=== PATIENT | female | born 1960 | race Caucasian/White ===

== ENCOUNTER → 2022-06-15 10:30 | Outpatient (BNVA) | payer MEDICARE, SELFPAY | PROVIDERS: PCP Family Medicine; Visit Provider Nurse Practitioner Family | DX: G43.009 Migraine without aura, not intractable, without status migrainosus (principal); R25.1 Tremor, unspecified; G24.01 Drug induced subacute dyskinesia; Z79.899 Other long term (current) drug therapy | CPT/HCPCS: 99202 ==

== ENCOUNTER → 2022-08-05 13:02 | Outpatient (BNVA) | payer MEDICARE, SELFPAY | PROVIDERS: PCP Family Medicine; Visit Provider Nurse Practitioner Family | DX: G43.009 Migraine without aura, not intractable, without status migrainosus (principal) | CPT/HCPCS: 99211 ==

== ENCOUNTER → 2022-12-13 10:43 | Outpatient (BNVA) | payer MEDICARE, SELFPAY | PROVIDERS: PCP Family Medicine; Visit Provider Nurse Practitioner Family | DX: G43.009 Migraine without aura, not intractable, without status migrainosus (principal); G24.01 Drug induced subacute dyskinesia; R25.1 Tremor, unspecified | CPT/HCPCS: 99212 ==

== ENCOUNTER → 2023-01-24 14:00 | Outpatient (BNVA) | payer MEDICARE, SELFPAY | PROVIDERS: PCP Family Medicine; Visit Provider Internal Medicine | DX: S34.4XXA Injury of lumbosacral plexus, initial encounter (principal); G54.9 Nerve root and plexus disorder, unspecified | CPT/HCPCS: 99202 ==

== ENCOUNTER → 2023-02-23 14:00 | Outpatient (BNVA) | payer MEDICARE, SELFPAY | PROVIDERS: PCP Family Medicine; Visit Provider Nurse Practitioner Family | DX: G20 Parkinson's disease (principal); R20.2 Paresthesia of skin; M54.50 Low back pain, unspecified; R26.9 Unspecified abnormalities of gait and mobility; G24.01 Drug induced subacute dyskinesia; G43.009 Migraine without aura, not intractable, without status migrainosus | CPT/HCPCS: 99212 ==

== ENCOUNTER 2023-04-06 09:03 | Outpatient (REF) | payer MEDICARE, SELFPAY ==
--- NOTE | 2023-04-06 09:07 | EMG_ITS ---
Please see scanned EMG / Nerve Conduction Report. MTDD
== END 2023-04-06 09:04 | disposition home or self-care (01) ==
LOC: HO.NEURO 09:03
PROVIDERS: PCP Family Medicine; Visit Provider Nurse Practitioner Family
DX: R20.2 Paresthesia of skin (principal); M54.50 Low back pain, unspecified; R26.9 Unspecified abnormalities of gait and mobility
CPT/HCPCS: 95860; 95886; 95907; 95909

== ENCOUNTER 2023-05-11 10:16 | Day surgery (SDC) | payer MEDICARE, SELFPAY ==
--- NOTE | ~2023-05-11 | FL_ITS ---
EXAMINATION: XR FLUOROSCOPY WITH IMAGES CLINICAL INFORMATION: SPRINT. COMPARISON: None available. TECHNIQUE: Fluoroscopy Supervised By: Dr. Wenceslao Tinoco. Fluoroscopy Time: 0.7 minutes. Cumulative Dose: 14.1 mGy. DAP: 0.125 Gy-cm2. Images: 4. FINDINGS: Images demonstrate wire or probe projecting over the lumbar spine. FL/FL guidance in OR IMPRESSION: Fluoroscopy guidance for pain management procedure.
[2023-05-11 10:31] VITALS: BP 101/52; PULSE 49; RESP 18; TEMP 36.4; O2SAT 100
--- NOTE | 2023-05-11 11:15 | MHC.SHP ---
Pre-Procedural Eval Section A Date of Service: 05/11/23 The patient is an INPATIENT: No Changes since office visit: Yes Patient answered all questions The History & Physical has been completed within 30 days and I have reviewed it.: Yes Section B Chief Complaint: Injury of lumbosacral plexus, initial encounter Relevant Family History (Specify if Yes): No Relevant Social History: None Present Medications: None Medical History: No relevant PMH History of Previous Operations: No relevant previous surgery Allergies: Allergies Allergy/AdvReac Type Severity Reaction Status Date / Time dihydroergotamine Allergy Severe Vomiting Verified 02/23/23 14:07 erythromycin base AdvReac Intermediate n/v Verified 02/23/23 14:07 NSAIDS (Non-Steroidal AdvReac Unknown Verified 02/23/23 14:07 Anti-Inflamma reglan AdvReac Unknown Uncoded 02/23/23 14:07 Review of Systems Sugical H&P ROS: Negative: Constitution, Cardiovascular and Respiratory Exam Surgical H&P Exam: Normal: HEENT, Normal: Heart and Normal: Lungs Plan Diagnosis/Plan: Unchanged I have reviewed the history and physical and performed a pertinent physical examination on my patient. No changes have occurred unless specified. Time Spent With Patient Time: Total time managing care of this patient today ____ minutes.
[2023-05-11 12:23] VITALS: BP 147/67; PULSE 47; RESP 18; TEMP 36.8; O2SAT 100
--- NOTE | 2023-05-11 12:27 | P.BOP_ITS ---
Brief Operative Note Date of Service: 05/11/23 Pre-op diagnosis: Lumbar nerve root disorder, traumatic lumbosacral plexopathy Post-op diagnosis: same Procedure: Temporary right L1 nerve root stimulator placement Implants: Sprint temporary PNS system Surgeon: Wenceslao Tinoco MD Anesthesia: local Was an Learning And Development Consultant used for this Procedure?: No Estimated blood loss (mL): 2 Pathology: none sent Condition: stable Disposition: same day
--- NOTE | 2023-05-11 12:28 | P.OP_ITS ---
Operative Note Operative Note Date of Service: 05/11/23 Narrative: Lumbar Nerve Root Temporary Nerve Stimulator Placement, Right L1 ? After the risks, benefits and alternatives were discussed with the patient and informed consent was obtained, patient was placed in the prone position and padded to foster comfort. The skin overlying the lumbosacral spine was prepped and draped in sterile fashion. Fluoroscopy was used to identify the L1 vertebral body. The skin around the planned entry point and the subcutaneous tissues were injected with lidocaine 0.75%. An introducer needle and stimulating probe were assembled, inserted and advanced in an ipsilateral oblique fashion towards the safe triangle within the upper pole of the L1 neural foramen, taking care to maintain the proper depth of insertion as the introducer was advanced under fluoroscopic guidance. The introducer needle was delivered to a location in proximity to the nerve root. Multiple stimulation parameters were used to deliver stimulation to the target nerve root in concert with stimulating at multiple positions around the nerve. Nerve target acquisition was confirmed noting generation of paresthesias in the right back and flank. Various electrical parameter combinations were tested. The stimulating probe was removed from the introducer and a percutaneous lead was guided through the needle and delivered to a location in similar proximity to the nerve. Final location was verified with electrical stimulation and documented with fluoroscopy. The introducer needle was removed. The exposed end of the percutaneous lead was attached to an external stimulator unit. Various electrical parameter c ombinations were again tested until the patient indicated paresthesia or muscle tension overlapping the distribution of the patient?s typical region of pain. After confirming that lead impedance was in the normal range, the external unit was detached, the needle was removed, and the lead was anchored at the skin. The lead was threaded into the connector block and electrical continuity and desired patient response was confirmed. The connector block was attached to the external stimulator unit. The site was covered with a sterile occlusive dressing. The patient was observed for stability of vital signs and comfort.
== END 2023-05-11 12:58 | disposition home or self-care (01) ==
PROVIDERS: PCP Family Medicine; Visit Provider Internal Medicine
PROC: (CPT 64555; principal; 2023-05-11 11:10)
DX: S34.4XXA Injury of lumbosacral plexus, initial encounter (principal); G54.9 Nerve root and plexus disorder, unspecified; G89.29 Other chronic pain; M25.551 Pain in right hip; R26.2 Difficulty in walking, not elsewhere classified; R20.8 Other disturbances of skin sensation; W18.41XA Slipping, tripping and stumbling without falling due to stepping on object, initial encounter; X50.9XXA Other and unspecified overexertion or strenuous movements or postures, initial encounter; Y93.9 Activity, unspecified; Y92.9 Unspecified place or not applicable; Y99.8 Other external cause status; F41.1 Generalized anxiety disorder; E78.5 Hyperlipidemia, unspecified; E03.9 Hypothyroidism, unspecified; R41.9 Unspecified symptoms and signs involving cognitive functions and awareness; Z88.1 Allergy status to other antibiotic agents; Z88.8 Allergy status to other drugs, medicaments and biological substances; Z79.899 Other long term (current) drug therapy; Z98.890 Other specified postprocedural states
CPT/HCPCS: 64555; C1778

== ENCOUNTER → 2023-05-11 10:16 | Outpatient (BNV) | payer MEDICARE, SELFPAY | PROVIDERS: PCP Family Medicine; Visit Provider Internal Medicine | DX: S34.4XXA Injury of lumbosacral plexus, initial encounter (principal) | CPT/HCPCS: 64555 ==

== ENCOUNTER → 2023-05-17 09:56 | Outpatient (BNVA) | payer MEDICARE, SELFPAY | PROVIDERS: PCP Family Medicine; Visit Provider Internal Medicine | DX: Z48.01 Encounter for change or removal of surgical wound dressing (principal); Z96.82 Presence of neurostimulator | CPT/HCPCS: 99211 ==

== ENCOUNTER 2023-05-20 09:06 | Outpatient (AMB) | payer MEDICARE, SELFPAY ==
[2023-05-20 09:14] VITALS: BP 98/54; PULSE 54; RESP 14; O2SAT 98; BMI 22.6
--- NOTE | 2023-05-20 09:14 | MHC.OFFVIS ---
Intake Vital Signs 05/20/23 09:14 Height 6 ft Weight 167 lb BMI 22.6 BP 98/54 L Blood Pressure Location Lt brachial Position Sitting Respiration 14 Pulse 54 Pulse Source Pulse Oximeter Pulse Oximetry (%) 98 Oxygen Delivery Method Room Air Intake Visit Reasons: s/p Sprint Allergies dihydroergotamine Allergy (Severe, Verified 05/20/23 09:16) Vomiting erythromycin base Adverse Reaction (Intermediate, Verified 05/20/23 09:16) n/v NSAIDS (Non-Steroidal Anti-Inflamma Adverse Reaction (Verified 05/20/23 09:16) Unknown reglan Adverse Reaction (Uncoded 05/20/23 09:16) Unknown Medication List - Last Reconciled 05/20/23 by Tash Villeda LPN atorvastatin 80 mg PO DAILY carbidopa-levodopa 25-100 mg 0.5 - 1 tabs PO BID 30 days cholecalciferol (vitamin D3) 50 mcg PO DAILY donepezil 10 mg PO DAILY 30 days erenumab-aooe (Aimovig Autoinjector) 140 mg subcut ONCE 28 days gabapentin 800 mg PO TID hydroxyzine pamoate (Vistaril) 50 mg PO BEDTIME lamotrigine 200 mg PO BID levothyroxine 100 mcg PO DAILY multivitamin 1 tab PO DAILY ondansetron HCl mg PO prazosin 4 mg PO QPM pregabalin 150 mg PO TID 30 days trazodone 400 mg PO BEDTIME zolmitriptan (Zomig) 5 mg PO Q2-4H PRN zolpidem 10 mg PO BEDTIME HPI s/p Sprint HPI Details 62-year-old female who presents today to the office for a status post sprint. The patient has significant relief in the flank region. She continues to have pain in the right lower back region, which starts worsening with increasing the stim intensity. She has tried lidocaine patches for the right back pain without any relief. Her device setting is currently functional at 20. She feels pain intensity, pressure, and muscles tightness around her tender region in the right side with the increasing in device setting. Past procedure: 05/11/23: Lumbar Nerve Root Temporary Nerve Stimulator Placement, Right L1: Therapy ongoing. [facility] Medical History Anxiety Bipolar disorder Depression GERD (gastroesophageal reflux disease) HLD (hyperlipidemia) Hypothyroidism Kidney stones Memory difficulties Surgical History H/O foot surgery History of ankle surgery Hx of tonsillectomy Family History Father Cancer of adrenal gland High blood pressure High cholesterol Migraines Mother High cholesterol High blood pressure Diabetes Pulmonary fibrosis Social History (Updated 02/23/23 @ 14:13 by Ada Ferrer CMA) Alcohol intake: never Patient Tobacco Use Status: Never used Tobacco Substance Use Type: Marijuana Review of Systems Const All systems reviewed & are unremarkable except as noted in HPI and below Physical Exam Vital Signs: Last Vital Signs Pulse 54 05/20/23 09:14 Resp 14 05/20/23 09:14 BP 98/54 L 05/20/23 09:14 Pulse Ox 98 05/20/23 09:14 Oxygen Delivery Method Room Air 05/20/23 09:14 BMI result Body Mass Index 22.6 General: Appears afebrile. Alert and oriented. Mood and affect appropriate. Follows and participates in conversation appropriately. Respiratory effort is unlabored. Able to transition from sit to stand unassisted. Ambulates with bilaterally normal heel strike and toe off. Exquisite tenderness to palpation in the right subcostal midback region. Results Reviewed Results Reviewed: No imaging is available for review. Assessment & Plan Assessment & Plan (1) Nerve root and plexus disorder, unspecified: Code(s): G54.9 - Nerve root and plexus disorder, unspecified (2) Traumatic lumbosacral plexopathy: Code(s): S34.4XXA - Injury of lumbosacral plexus, initial encounter Qualifiers: Encounter type: subsequent encounter Qualified Code(s): S34.4XXD - Injury of lumbosacral plexus, subsequent encounter (3) Complex regional pain syndrome I, unspecified: Comment: right torso Code(s): G90.50 - Complex regional pain syndrome I, unspecified Qualifiers: Complex regional pain syndrome affected site: unspecified Qualified Code(s): G90.50 - Complex regional pain syndrome I, unspecified Plan Discussed spinal cord stimulator vs. sympathetic nerve block as a possible treatment option for treatment of her sensitivity, allodynia, abnormal sensation symptoms that appear to be secondary to a localized complex regional pain syndrome. For now she will continue the temporary nerve stimulation therapy for the next five weeks; if her pain continues to persist, we will schedule her for a sympathetic nerve block. The patient will follow up in one month if her pain continues to persist for a premature removal of the PNS device. If she has a delayed response for her hypersensitivity symptoms, we will keep the device in place and complete the full stipulated 8 week therapy. Scribed for Dr. Tinoco by Cayden Vera, electromedical equipment repairer, on 05/20/2023. I, Dr. Tinoco, have personally reviewed and agree with the information entered by the scribe. Coding Level of Care Code Est Pt Level 4 (12379) Diagnoses Nerve root and plexus disorder, unspecified G54.9 Injury of lumbosacral plexus, subsequent encounter S34.4XXD Encounter type: subsequent encounter Complex regional pain syndrome type 1, affecting unspecified site G90.50 Complex regional pain syndrome affected site: unspecified
== END 2023-05-20 09:39 | disposition home or self-care (01) ==
PROVIDERS: PCP Family Medicine; Visit Provider Internal Medicine
DX: G54.9 Nerve root and plexus disorder, unspecified (principal); S34.4XXD Injury of lumbosacral plexus, subsequent encounter; G90.50 Complex regional pain syndrome I, unspecified
CPT/HCPCS: 99024

== ENCOUNTER → 2023-05-20 09:06 | Outpatient (BNVA) | payer MEDICARE, SELFPAY | PROVIDERS: PCP Family Medicine; Visit Provider Internal Medicine | DX: G90.50 Complex regional pain syndrome I, unspecified (principal); G54.9 Nerve root and plexus disorder, unspecified; S34.4XXD Injury of lumbosacral plexus, subsequent encounter | CPT/HCPCS: 99212 ==

== ENCOUNTER → 2023-05-25 12:52 | Outpatient (BNVA) | payer MEDICARE, SELFPAY | PROVIDERS: PCP Family Medicine; Visit Provider Internal Medicine ==

== ENCOUNTER 2023-05-25 14:23 | Emergency (ER) | payer MEDICARE, SELFPAY ==
[2023-05-25 14:36] VITALS: BP 122/76; PULSE 68; O2SAT 99
[2023-05-25 15:00] VITALS: BP 125/69; PULSE 76; RESP 18; TEMP 36.8; O2SAT 100; BMI 22.8
--- NOTE | 2023-05-25 15:02 | ED_ITS ---
HPI - Back Pain/Injury General Chief Complaint: Back Pain/Injury Stated Complaint: BACK PAIN Time Seen by Provider: 05/25/23 14:36 Source: patient and old records reviewed Mode of arrival: EMS Limitations: no limitations History of Present Illness HPI Narrative: 62 yo female with PMH of mood disorder, complex regional pain syndrome, parkinson's, migraines she fell about a year ago and suffered severe pain she was being treated here by Dr. Tinoco for a nerve root and plexus disorder she was treated with a temporary nerve stimulation therapy. She still had pain but plan was to follow up and if pain persisted they would remove the device and consider sympathetic nerve block - patient reports they removed the device today and had severe flank pain and burning in the area which isn't totally new but has worsened recently since the weekend without new trauma. She has not had fevers, b/b incontinence or saddle anesthesia MD elicited complaint: back pain Pertinent past history: prior back pain Onset (ago): year(s) (1) Timing: progressively worsening Severity: severe Quality: burning and sharp Location: lumbar spine Radiation: right upper leg Exacerbating factors: movement, walking and other (basically anything) Relieving factors: none Context: fall Associated symptoms: other (has tingling in R upper thigh) Related Data Home Medications Medication Instructions Recorded Confirmed atorvastatin 80 mg tablet 80 mg PO DAILY 06/11/22 05/25/23 lamotrigine 200 mg tablet 200 mg PO BID 06/11/22 05/25/23 levothyroxine 100 mcg tablet 100 mcg PO DAILY 06/11/22 05/25/23 ondansetron HCl 4 mg tablet mg PO 06/11/22 05/25/23 prazosin 2 mg capsule 4 mg PO QPM 06/11/22 05/25/23 trazodone 100 mg tablet 400 mg PO BEDTIME 06/11/22 05/25/23 multivitamin 1 tab PO DAILY 06/15/22 05/25/23 zolmitriptan 5 mg tablet (Zomig) 5 mg PO Q2-4H PRN 06/15/22 05/25/23 gabapentin 800 mg tablet 800 mg PO TID 12/13/22 05/25/23 hydroxyzine pamoate 50 mg capsule 50 mg PO BEDTIME 01/24/23 05/25/23 (Vistaril) cholecalciferol (vitamin D3) 50 50 mcg PO DAILY 02/23/23 05/25/23 mcg (2,000 unit) capsule zolpidem 10 mg tablet 10 mg PO BEDTIME 02/23/23 05/25/23 Previous Rx's Medication Instructions Recorded erenumab-aooe 140 mg/mL 140 mg subcut ONCE 28 days #1 mL 10/27/22 subcutaneous auto-injector (Aimovig Autoinjector) donepezil 10 mg tablet 10 mg PO DAILY 30 days #30 tabs 03/21/23 carbidopa 25 mg-levodopa 100 mg 0.5 - 1 tab PO BID 30 days #60 tabs 05/23/23 tablet pregabalin 150 mg capsule 150 mg PO TID 30 days #90 caps 05/24/23 Allergies Allergy/AdvReac Type Severity Reaction Status Date / Time dihydroergotamine Allergy Severe Vomiting Verified 05/25/23 15:21 erythromycin base AdvReac Intermediate n/v Verified 05/25/23 15:21 NSAIDS (Non-Steroidal AdvReac Unknown Verified 05/25/23 15:21 Anti-Inflamma reglan AdvReac Unknown Uncoded 05/25/23 15:21 Review of Systems 2 Review of Systems: Constitutional : No Weight loss, No Fever, No Chills, ENT/Mouth : No Hearing loss, No Ear Pain, No Nasal Congestion, No Sinus Pain, No Hoarseness, No sore throat, No Rhinorrhea, No Swallowing Difficulty Cardiovascular : No Chest Pain, No SOB Respiratory : No Cough, No Dyspnea Gastrointestinal : No Nausea, No Vomiting, No Diarrhea, No abdominal Pain, No Hematochezia, No Melena Genitourinary : No Dysuria, No Urinary Frequency, No Hematuria, No Urinary Incontinence, Musculoskeletal : positive back pain Skin : No Skin Lesions, No rash Neuro : No Weakness, No Numbness, No Paresthesias, no loss of bowel or bladder incontinence, no saddle anesthesia All other systems reviewed and are negative PMFSH Past Medical History Attestation statement: The following information was validated with the patient. Source: old records reviewed Medical History Bipolar disorder Anxiety HLD (hyperlipidemia) Hypothyroidism Depression Memory difficulties Kidney stones GERD (gastroesophageal reflux disease) Surgical History H/O foot surgery Hx of tonsillectomy History of ankle surgery Family History Family History Father Cancer of adrenal gland High blood pressure High cholesterol Migraines Mother High cholesterol High blood pressure Diabetes Pulmonary fibrosis Social History Social History Unable to assess alcohol history related to: Unknown Alcohol intake: never Patient Tobacco Use Status: Never used Tobacco Smoked in Last 30 Days: No Use of substances other than those prescribed or required for medical reasons: No Substance Use Type: Marijuana Advance Directives: No Advance Directives Information Provided: No Patient : No Physical Exam 2 Vital Signs: Vital Signs: Last Vital Signs Temp 98.3 F 05/25/23 15:00 Pulse 76 05/25/23 15:00 Resp 18 05/25/23 15:00 BP 125/69 05/25/23 15:00 Pulse Ox 100 05/25/23 15:00 O2 Del Method Room Air 05/25/23 15:00 BMI result Body Mass Index 22.8 Appearance: Alert. Oriented X3. anxious in pain mild acute distress. Eyes: Pupils equal, round and reactive to light. ENT: Pharynx normal. Neck: Normal inspection. Neck supple. CVS: Normal heart rate and rhythm. Pulses normal. Respiratory: No respiratory distress. Breath sounds normal. Abdomen: Soft and nontender. Back: ttp along R flank it is hyperesthetic but no redness no contusion no swelling dressing is c/d/i Skin: Skin warm and dry. Normal skin color. Normal skin turgor. Extremities: No lower extremity edema. No calf ttp Neuro: Oriented X 3. No motor deficit. No sensory deficit. Course Course Course Narrative: feels better stable for DC Medications Administered Discontinued Medications Generic Name Dose Route Start Last Admin Trade Name Freq PRN Reason Stop Dose Admin Droperidol 1.25 mg 05/25/23 14:45 05/25/23 15:30 Droperidol 5 Mg/2 Ml Vial IVPUSH 05/25/23 14:46 1.25 mg ONCE ONE Administration Hydromorphone HCl 1 mg 05/25/23 14:45 05/25/23 15:30 Hydromorphone Hcl 1 Mg/Ml Syringe IVPUSH 05/25/23 14:46 1 mg ONCE ONE Administration Protocol Sodium Chloride 1,000 mls @ 999 mls/hr 05/25/23 16:00 05/25/23 17:35 Ns IV 05/25/23 17:00 Infused .Q1H1M AMA Infusion Medical Decision Making Medical Decision Making [facility] Narrative: 62 yo female with PMH of mood disorder, complex regional pain syndrome, parkinson's, migraines here with known and worsening R low back pain but no b/b incontinence no saddle anesthesia and skin became more painful and hyperesthetic post removal of PNS. She is NV intact. At this time it is pain related will obtain basic labs and treat pain. Has pain management doctor. Differential Diagnosis Differential Diagnoses: The differential diagnosis associated with the presentation includes complex regional pain syndrome Admission/Observation Consideration of admission/observation: Escalation of care including admission/observation considered pain improved able to move around stable for DC Lab Data [facility] Lab Attestation statement: I reviewed the patient's lab results. 05/25/23 15:26 05/25/23 15:26 Labs: Lab Results 05/25/23 Range/Units 15:26 WBC 6.4 (4.8-10.8) X10*3/uL RBC 4.75 (4.20-5.50) X10*6/uL Hgb 14.6 (12.0-16.0) g/dl Hct 43.9 (37.0-47.0) % MCV 92.4 (80.0-98.0) fL MCH 30.7 (27.0-33.0) pg MCHC 33.3 (31.0-35.0) g/dl RDW 12.8 (11.0-16.0) % Plt Count 249 (160-400) X10*3/uL MPV 10.0 (9.4-12.3) fL Immature Gran % (Auto) 0.2 (0.0-0.4) % Neut % (Auto) 72.3 (45-73) % Lymph % (Auto) 19.9 L (20-40) % Montgomery % (Auto) 6.9 (2-11) % Eos % (Auto) 0.2 (0-4) % Baso % (Auto) 0.5 (0-2) % Lymph # (Auto) 1.3 (1.2-4.9) X10*3/uL Montgomery # (Auto) 0.4 (0.1-1.2) X10*3/uL Eos # (Auto) 0.0 (0.0-0.4) X10*3/uL Baso # (Auto) 0.0 (0.0-0.2) X10*3/uL Abs Immat Gran (auto) 0.01 (0.00-0.03) X10*3/uL Absolute Neuts (auto) 4.6 (2.0-8.3) x10*3/uL Absolute Nucleated RBC 0.000 (0.0-0.012) X10*3/uL Nucleated RBC % (auto) 0.0 (0.0-0.2) /100WBC Sodium 140 (135-145) mmol/L Potassium 4.4 (3.3-5.1) mmol/L Chloride 110 H (96-108) mmol/L Carbon Dioxide 16 L (22-29) mmol/L Anion Gap 18 (12-20) BUN 20 H (9-16) mg/dL Creatinine 0.94 (0.5-1.4) mg/dL Estim Creat Clear Calc 69.7 Estimated GFR 60 Random Glucose 101 (60-115) mg/dL Calcium 11.1 H (8.4-10.2) mg/dL Magnesium 2.3 (1.6-2.6) mg/dL Independent Historian Clinical information obtained from an independent historian. History obtained from or confirmed by: EMS External Record Review External record reviewed: Inpatient record Discharge Plan Discharge Clinical Impression: Back pain Qualifiers: Back pain location: low back pain Chronicity: acute Back pain laterality: right Sciatica presence: without sciatica Qualified Code(s): M54.50 - Low back pain, unspecified Patient Disposition: Home, Self-Care Instructions: Back Pain (ED) Additional Instructions: return for worsening symptoms, loss of control of bowel or bladder, fevers or any other concerns. please follow up with your pain management doctor Prescriptions: No Action Aimovig Autoinjector 140 mg/mL auto-injector 140 mg subcut ONCE 28 Days Qty: 1 6RF donepezil 10 mg tablet 10 mg PO DAILY 30 Days Qty: 30 3RF carbidopa-levodopa 25-100 mg tablet 0.5 - 1 tab PO BID 30 Days Qty: 60 3RF Rx Instructions: take w/ a cracker 30 minutes before breakfast and dinner, pregabalin 150 mg capsule 150 mg PO TID 30 Days Qty: 90 3RF trazodone 100 mg tablet 400 mg PO BEDTIME prazosin 2 mg capsule 4 mg PO QPM atorvastatin 80 mg tablet 80 mg PO DAILY lamotrigine 200 mg tablet 200 mg PO BID levothyroxine 100 mcg tablet 100 mcg PO DAILY ondansetron HCl 4 mg tablet PO multivitamin Tablet 1 tab PO DAILY zolmitriptan [Zomig] 5 mg tablet 5 mg PO Q2-4H PRN Rx Instructions: do not exceed 2 doses per 24 hrs gabapentin 800 mg tablet 800 mg PO TID hydroxyzine pamoate [Vistaril] 50 mg capsule 50 mg PO BEDTIME zolpidem 10 mg tablet 10 mg PO BEDTIME cholecalciferol (vitamin D3) 50 mcg (2,000 unit) capsule 50 mcg PO DAILY
[2023-05-25 15:29] LABS: MANUAL DIFF FLAG NO
[2023-05-25] MEDS: droPERidol 5 MG/2 ML VIAL 1.25 MG IVPUSH (15:30)
[2023-05-25] MEDS: HYDROmorphone HCl 1 MG/ML SYRINGE IVPUSH (15:30)
[2023-05-25 15:33] LABS: Basophils Percent Auto 0.5 % (0-2); Eosinophils Percent Auto 0.2 % (0-4); Hematocrit 43.9 % (37.0-47.0); Hemoglobin 14.6 g/dl (12.0-16.0); Imm Gran Abs Auto 0.01 X10*3/uL (0.00-0.03); Imm Gran Pct Auto 0.2 % (0.0-0.4); Lymphocytes Absolute Auto 1.3 X10*3/uL (1.2-4.9); Lymphocytes Percent Auto 19.9 % (20-40); Mean Corpuscular HGB Conc 33.3 g/dl (31.0-35.0); Mean Corpuscular Hemoglobin 30.7 pg (27.0-33.0); Mean Corpuscular Volume 92.4 fL (80.0-98.0); Monocytes Absolute Auto 0.4 X10*3/uL (0.1-1.2); Monocytes Percent Auto 6.9 % (2-11); Neutrophils Absolute Auto 4.6 x10*3/uL (2.0-8.3); Neutrophils Percent Auto 72.3 % (45-73); Platelet Count 249 X10*3/uL (160-400); Red Blood Count 4.75 X10*6/uL (4.20-5.50); Red Cell Distribution Width 12.8 % (11.0-16.0); White Blood Count 6.4 X10*3/uL (4.8-10.8)
[2023-05-25 15:50] LABS: Anion Gap 18 (12-20); Blood Urea Nitrogen 20 mg/dL (9-16); Calcium 11.1 mg/dL (8.4-10.2); Carbon Dioxide 16 mmol/L (22-29); Chloride 110 mmol/L (96-108); Creatinine Clr Calc Pharmacy 69.7; Estimated Glomerular Filt Rate 60; Glucose Random 101 mg/dL (60-115); Magnesium 2.3 mg/dL (1.6-2.6); Potassium 4.4 mmol/L (3.3-5.1); Sodium 140 mmol/L (135-145)
[2023-05-25] MEDS: 0.9 % Sodium Chloride 1,000 ML 999 ML IV (16:26)
== END 2023-05-25 18:10 | disposition home or self-care (01) ==
PROVIDERS: Emergency Provider Emergency Medicine
DX: M54.50 Low back pain, unspecified (principal); G43.909 Migraine, unspecified, not intractable, without status migrainosus; R10.9 Unspecified abdominal pain; Z79.899 Other long term (current) drug therapy
CPT/HCPCS: 36415; 80048; 83735; 85025; 96361; 96374; 96375; 99211; 99284; J1170; J1790

== ENCOUNTER 2023-06-03 10:32 | Outpatient (AMB) | payer MEDICARE, SELFPAY ==
--- NOTE | 2023-06-03 10:35 | A.OFFVIS_ITS ---
Intake Vital Signs 06/03/23 10:36 Height 6 ft Weight 165 lb BMI 22.4 Intake Visit Reasons: follow up migraine/Parkinson-Confirmed Intake Note: Patient presents for follow up migraine/parkinson. Patient states my migraines are ok im maybe getting 2 a week but theyre not lasting as long, so I'm I just want to talk to her about parkinsons. Allergies dihydroergotamine Allergy (Severe, Verified 06/03/23 10:38) Vomiting erythromycin base Adverse Reaction (Intermediate, Verified 06/03/23 10:38) n/v NSAIDS (Non-Steroidal Anti-Inflamma Adverse Reaction (Verified 06/03/23 10:38) Unknown reglan Adverse Reaction (Uncoded 06/03/23 10:38) Unknown Medication List - Last Reconciled 06/03/23 by EDDIE Holley atorvastatin 80 mg PO DAILY carbidopa-levodopa 25-100 mg 0.5 - 1 tabs PO BID 30 days cholecalciferol (vitamin D3) 50 mcg PO DAILY donepezil 10 mg PO DAILY 30 days erenumab-aooe (Aimovig Autoinjector) 140 mg subcut ONCE 28 days gabapentin 800 mg PO TID hydroxyzine pamoate (Vistaril) 50 mg PO BEDTIME lamotrigine 200 mg PO BID levothyroxine 100 mcg PO DAILY multivitamin 1 tab PO DAILY ondansetron HCl mg PO prazosin 4 mg PO QPM pregabalin 150 mg PO TID 30 days trazodone 400 mg PO BEDTIME zolmitriptan (Zomig) 5 mg PO Q2-4H PRN zolpidem 10 mg PO BEDTIME HPI HPI Comments History of Present Illness Details 62 -yr-old female presents for f/u visit , accompanied by her friend She had a spinal stimulator placed in Sep, however this resulted in increased in pain. So last week, the spinal stimulator was removed. The pain today is a bit better, but still has 7/10 pain. She has started PT but still has significant pain which is limiting her activity and her sleep. Since starting CD-LD: She is noticing less left hand tremor. She is noticing increased giovanni foot movements at night. Her oral-buccal movements are stable- firends are telling her she looks better. She is curious about risk for dementia w/ PD/TD. She wonders about taking supplements to help w/ PD. PFSH Medical History (Updated 06/03/23 @ 11:28 by EDDIE Holley) Bipolar disorder Anxiety HLD (hyperlipidemia) Hypothyroidism Depression Memory difficulties Kidney stones GERD (gastroesophageal reflux disease) Surgical History H/O foot surgery Hx of tonsillectomy History of ankle surgery Family History Father Cancer of adrenal gland High blood pressure High cholesterol Migraines Mother High cholesterol High blood pressure Diabetes Pulmonary fibrosis Social History Unable to assess alcohol history related to: Unknown Alcohol intake: never Patient Tobacco Use Status: Never used Tobacco Substance Use Type: Marijuana Review of Systems Const All systems reviewed & are unremarkable except as noted in HPI and below Physical Exam Vital Signs: BMI result Body Mass Index 22.4 Const General: cooperative and no acute distress Resp Effort & Inspection: normal respiratory effort and able to speak in complete sentences Neuro Other: Involuntary oral-buccal movements. Involuntary L > R hand flexion/extension- note observed. Involuntary Giovanni toes flexion/ext. LUE 4th finger rest tremor. BUE postural tremor. Stands slowly, antalgic gait, with short steps. General: patient oriented x3 and CN's II-XI intact bilaterally Cognition (Neuro): normal cognition Psych Appearance: grossly normal Mental Status: mental status grossly normal Speech and movement: Clear speech present Assessment & Plan Assessment & Plan (1) Parkinson's disease: Code(s): G20 - Parkinson's disease (2) Tardive dyskinesia: Code(s): G24.01 - Drug induced subacute dyskinesia (3) Migraine without aura: Code(s): G43.009 - Migraine without aura, not intractable, without status migrainosus (4) Complex regional pain syndrome I, unspecified: Comment: right torso Code(s): G90.50 - Complex regional pain syndrome I, unspecified Qualifiers: Complex regional pain syndrome affected site: unspecified Qualified Code(s): G90.50 - Complex regional pain syndrome I, unspecified Plan For movement s/s: Discussed general risk for dementia is increased in pt's who have PD- reviewed that exercise is known to be beneficial, we will monitor her cognition. No currnet indications of cognitive deficits. Hold CD-LD for a few days- monitor if foot movement s/s worsen/improve. Information given on national and online PD resources- such as the APDA, [employer], and the [facility]. Monitor TD s/s- if becomes more botehrsome- could reconsider Austedo trial. Pt is no longer on any antipsychotic agents, although she does continue on lamotrigene, trazodone, gabapnetin. Will check labs. For sleep: Trial Amitriptyline 10-20mg qhs- may help CRPS as well. For acute headache treatment: Continue Zomig and Tylenol prn. Previous acute medication use: Sumatriptan po/inj- stopped working. Took 3 doses of Ubrelvy- 100mg- ineffective.. For headache prevention medication: Continue Aimovig 140mg sc q month Previous preventative medication use: Had been on Botox for approx 5 yrs, but this stopped working. Amitriptyline, Topiramte, Propranolol, Depakote- stopped working. Emgality- was effective (changed only d/t insurance) Orders: Orders Vitamin B12 and Folate 06/03/23 E03.9 - Hypothyroidism, unspecified, R20.2 - Paresthesia of skin, R25.1 - Tremor, unspecified, R41.89 - Other symptoms and signs involving cognitive functions and awareness, R53.83 - Other fatigue TSH reflex Free T4 06/03/23 E03.9 - Hypothyroidism, unspecified, R20.2 - Paresthesia of skin, R25.1 - Tremor, unspecified, R41.89 - Other symptoms and signs involving cognitive functions and awareness, R53.83 - Other fatigue Vitamin D 25-OH (D2 and D3) 06/03/23 E03.9 - Hypothyroidism, unspecified, R20.2 - Paresthesia of skin, R25.1 - Tremor, unspecified, R41.89 - Other symptoms and signs involving cognitive functions and awareness, R53.83 - Other fatigue Complete Blood Count Auto Diff 06/03/23 E03.9 - Hypothyroidism, unspecified, R20.2 - Paresthesia of skin, R25.1 - Tremor, unspecified, R41.89 - Other symptoms and signs involving cognitive functions and awareness, R53.83 - Other fatigue Comprehensive Met. Panel 06/03/23 E03.9 - Hypothyroidism, unspecified, R20.2 - Paresthesia of skin, R25.1 - Tremor, unspecified, R41.89 - Other symptoms and signs involving cognitive functions and awareness, R53.83 - Other fatigue Medications: New amitriptyline 10 - 20 mg (1 - 2 x 10 mg) PO BEDTIME 30 days 60 tabs 3RF Coding Level of Care Code Est Pt Level 4 (66090) Diagnoses Parkinson's disease G20 Tardive dyskinesia G24.01 Migraine without aura G43.009 Complex regional pain syndrome type 1, affecting unspecified site G90.50 Complex regional pain syndrome affected site: unspecified
[2023-06-03 10:36] VITALS: BMI 22.4
== END 2023-06-03 11:33 | disposition home or self-care (01) ==
PROVIDERS: PCP Family Medicine; Visit Provider Nurse Practitioner Family
DX: G20.B1 Parkinson's disease with dyskinesia, without mention of fluctuations (principal); G90.59 Complex regional pain syndrome I of other specified site; G43.009 Migraine without aura, not intractable, without status migrainosus
CPT/HCPCS: 99214

== ENCOUNTER → 2023-06-03 10:32 | Outpatient (BNVA) | payer MEDICARE, SELFPAY | PROVIDERS: PCP Family Medicine; Visit Provider Nurse Practitioner Family | DX: G20.A1 Parkinson's disease without dyskinesia, without mention of fluctuations (principal); G24.01 Drug induced subacute dyskinesia; G90.50 Complex regional pain syndrome I, unspecified; G43.009 Migraine without aura, not intractable, without status migrainosus | CPT/HCPCS: 99212 ==

== ENCOUNTER 2023-06-20 10:48 | Outpatient (AMB) | payer MEDICARE, SELFPAY ==
[2023-06-20 11:00] VITALS: RESP 12; BMI 22.4
--- NOTE | 2023-06-20 11:00 | A.OFFVIS_ITS ---
Intake Vital Signs 06/20/23 11:00 Height 6 ft Weight 165 lb BMI 22.4 Blood Pressure Location Lt brachial Position Sitting Respiration 12 Pulse Source Pulse Oximeter Intake Visit Reasons: Follow Up S/p Sprint Removal /confirmed Allergies dihydroergotamine Allergy (Severe, Verified 06/20/23 11:02) Vomiting erythromycin base Adverse Reaction (Intermediate, Verified 06/20/23 11:02) n/v NSAIDS (Non-Steroidal Anti-Inflamma Adverse Reaction (Verified 06/20/23 11:02) Unknown reglan Adverse Reaction (Uncoded 06/20/23 11:02) Unknown Medication List - Last Reconciled 06/20/23 by Tash Villeda LPN amitriptyline 10 - 20 mg (1 - 2 x 10 mg) PO BEDTIME 30 days atorvastatin 80 mg PO DAILY cholecalciferol (vitamin D3) 50 mcg PO DAILY donepezil 10 mg PO DAILY 90 days erenumab-aooe (Aimovig Autoinjector) 140 mg subcut ONCE 28 days gabapentin 800 mg PO TID hydroxyzine pamoate (Vistaril) 50 mg PO BEDTIME lamotrigine 200 mg PO BID levothyroxine 100 mcg PO DAILY multivitamin 1 tab PO DAILY ondansetron HCl mg PO prazosin 4 mg PO QPM pregabalin 150 mg PO TID 30 days trazodone 400 mg PO BEDTIME zolmitriptan (Zomig) 5 mg PO Q2-4H PRN zolpidem 10 mg PO BEDTIME HPI Follow Up S/p Sprint Removal /confirmed HPI Details 62-year-old female who presents today to the office for a follow-up status post sprint removal. Her device was removed on 05/25/23, but she continued to experience severe flank pain and burning in the area. She states that her symptoms improved but were not completely resolved. She was seen in the ER and was treated with Dilaudid with no significant relief. She is able to sleep at night. She presents today to discuss further treatment options for her symptoms. Past procedure: 05/11/23: Lumbar Nerve Root Temporary Ne rve Stimulator Placement, Right L1: Temporary exacerbation of symptoms, followed by improvement following removal [facility] Medical History (Updated 06/03/23 @ 11:28 by EDDIE Holley) Bipolar disorder Anxiety HLD (hyperlipidemia) Hypothyroidism Depression Memory difficulties Kidney stones GERD (gastroesophageal reflux disease) Surgical History H/O foot surgery Hx of tonsillectomy History of ankle surgery Family History Father Cancer of adrenal gland High blood pressure High cholesterol Migraines Mother High cholesterol High blood pressure Diabetes Pulmonary fibrosis Social History Unable to assess alcohol history related to: Unknown Alcohol intake: never Patient Tobacco Use Status: Never used Tobacco Substance Use Type: Marijuana Review of Systems Const All systems reviewed & are unremarkable except as noted in HPI and below Physical Exam Vital Signs: Last Vital Signs Resp 12 06/20/23 11:00 BMI result Body Mass Index 22.4 General: Appears afebrile. Alert and oriented. Mood and affect appropriate. Follows and participates in conversation appropriately. Respiratory effort is unlabored. Able to transition from sit to stand unassisted. Ambulates with bilaterally normal heel strike and toe off. Continues to have hypersensitivity and allodynia in the T8, T9, T10 dermatomal distribution. Results Reviewed Results Reviewed: No imaging is available for review. Assessment & Plan Assessment & Plan (1) Complex regional pain syndrome I, unspecified: Comment: right torso Code(s): G90.50 - Complex regional pain syndrome I, unspecified Qualifiers: Complex regional pain syndrome affected site: unspecified Qualified Code(s): G90.50 - Complex regional pain syndrome I, unspecified Plan Discussed dorsal root ganglion stimulator vs. spinal cord stimulator as possible treatment options. Will place a referral for psychology clearance. Once we have received psychology clearance, we will plan for trial of thoracolumbar spinal cord stimulator. The patient will receive a call from [facility] for the psychology assessment. Scribed for Dr. Tinoco by Cayden Vera, senior medical billing specialist, on 06/20/2023. I, Dr. Tinoco, have personally reviewed and agree with the information entered by the scribe. Coding Level of Care Code Est Pt Level 3 (80845) Diagnoses Complex regional pain syndrome type 1, affecting unspecified site G90.50 Complex regional pain syndrome affected site: unspecified
== END 2023-06-20 11:21 | disposition home or self-care (01) ==
PROVIDERS: PCP Family Medicine; Visit Provider Internal Medicine
DX: G90.50 Complex regional pain syndrome I, unspecified (principal)
CPT/HCPCS: 99213

== ENCOUNTER → 2023-06-20 10:48 | Outpatient (BNVA) | payer MEDICARE, SELFPAY | PROVIDERS: PCP Family Medicine; Visit Provider Internal Medicine | DX: G90.50 Complex regional pain syndrome I, unspecified (principal) | CPT/HCPCS: 99212 ==

== ENCOUNTER 2023-10-12 11:09 | Outpatient (AMB) | payer MEDICARE, SELFPAY ==
--- NOTE | 2023-10-12 11:12 | MHC.OFFVIS ---
Intake Vital Signs 10/12/23 11:13 Height 6 ft Weight 168 lb 8 oz BMI 22.9 BP 98/82 Blood Pressure Location Rt brachial Position Sitting Pulse 46 L Pulse Source Pulse Oximeter Intake Visit Reasons: follow up migraine/Parkinson - CONF Intake Note: Patient presents for follow up migraines/parkinsons my migraines are ok Allergies dihydroergotamine Allergy (Severe, Verified 10/12/23 11:16) Vomiting erythromycin base Adverse Reaction (Intermediate, Verified 10/12/23 11:16) n/v NSAIDS (Non-Steroidal Anti-Inflamma Adverse Reaction (Verified 10/12/23 11:16) Unknown reglan Adverse Reaction (Uncoded 10/12/23 11:16) Unknown Medication List - Last Reconciled 10/12/23 by EDDIE Holley amitriptyline 10 - 20 mg (1 - 2 x 10 mg) PO BEDTIME 30 days atorvastatin 80 mg PO DAILY cholecalciferol (vitamin D3) 50 mcg PO DAILY donepezil 10 mg PO DAILY 90 days erenumab-aooe (Aimovig Autoinjector) 140 mg subcut ONCE 28 days hydroxyzine pamoate (Vistaril) 50 mg PO BEDTIME lamotrigine 200 mg PO BID levothyroxine 100 mcg PO DAILY multivitamin 1 tab PO DAILY ondansetron HCl mg PO prazosin 4 mg PO QPM propranolol ER 60 mg PO QDAY trazodone 400 mg PO BEDTIME zolmitriptan (Zomig) 5 mg PO Q2-4H PRN zolpidem 10 mg PO BEDTIME HPI HPI Comments History of Present Illness Details 63-yr-old female presents for f/u visit. Pt denies any significant interval medical history changes. Left neck skin cancer removal- unsure type. Grew up sailing and swimming. Pt did see the movement disorder specialist in [facility], who told her that she has a movement d/o. Pt had stopepd CD-LD did not think it was helpful. Was started on Propranolol, which seems to be helping the tremor. Denies lightheadedness, but her new smart watch is showing her nocturnal HR as low as 38, HR today is 46. She is still not exercising d/t her back pain. She tried a spinal stimulator but did not tolerate. She is scheduled to try nerve blocks through pain management. Pt states pain management believes she has CRPS of her back. She did stop Pregagabilin 150mg tid- was ineffective. Her migraines are ok. She has had 6 migraines in the last month, may wake up the headache in the am or in the middle of the night. The migraine lasts all day, and has 1 day of residual hang-over feeling. She is using Zomig 1 tab per attack. She has stopped Aimovig- thinks that she just stopped as her migraines were better. Pt's baseline headache characteristics: Severe, Usually left side of head, throbbing pain. At times can move to right side a/w photophobia, phonophobia, osmophobia, N/V/D, dizziness, brain fog, red/dry eyes, slurred speech. Once in 2020- had left facial droop during a migraine- head imaging was normal. [facility] Medical History (Updated 10/12/23 @ 20:32 by EDDIE Holley) Bipolar disorder Anxiety HLD (hyperlipidemia) Hypothyroidism Depression Memory difficulties Kidney stones GERD (gastroesophageal reflux disease) Surgical History H/O foot surgery Hx of tonsillectomy History of ankle surgery Family History Father Cancer of adrenal gland High blood pressure High cholesterol Migraines Mother High cholesterol High blood pressure Diabetes Pulmonary fibrosis Social History Unable to assess alcohol history related to: Unknown Alcohol intake: never Patient Tobacco Use Status: Never used Tobacco Substance Use Type: Marijuana Review of Systems Const All systems reviewed & are unremarkable except as noted in HPI and below Physical Exam Vital Signs: Last Vital Signs Pulse 46 L 10/12/23 11:13 BP 98/82 10/12/23 11:13 BMI result Body Mass Index 22.9 Const General: cooperative and no acute distress Resp Effort & Inspection: normal respiratory effort and able to speak in complete sentences Neuro Other: Alert and oriented x3 Involuntary oral-buccal movements. Involuntary L > R hand flexion/extension- decreased LUE 5th finger rest tremor. BUE postural tremor. Stands slowly, antalgic gait, with short steps. Pleasant affect Assessment & Plan Assessment & Plan (1) Migraine without aura: Code(s): G43.009 - Migraine without aura, not intractable, without status migrainosus (2) Tardive dyskinesia: Code(s): G24.01 - Drug induced subacute dyskinesia (3) Parkinson's disease: Comment: Very early symptoms of Parkinson's in setting of old positive DaTSCAN and tardive dyskinesia. Code(s): G20 - Parkinson's disease (4) Complex regional pain syndrome I, unspecified: Comment: right torso Code(s): G90.50 - Complex regional pain syndrome I, unspecified Qualifiers: Complex regional pain syndrome affected site: unspecified Qualified Code(s): G90.50 - Complex regional pain syndrome I, unspecified Plan For movement s/s: Continue to hold CD-LD- patient did not find effective I have asked patient to clarify her propranolol dose, as she is having nocturnal bradycardia. Patient will update me via portal. Monitor TD s/s- if becomes more bothersome- could reconsider Austedo trial. Pt is no longer on any antipsychotic agents, although she does continue on lamotrigene, trazodone, gabapnetin. For acute headache treatment: Continue Zomig and Tylenol prn- advised she may repeat her Zomig dose up to 2 tabs per day. Previous acute medication use: Sumatriptan po/inj- stopped working. Took 3 doses of Ubrelvy- 100mg- ineffective.. For headache prevention medication: Try increasing Amitriptyline from 20mg to 25-50mg qhs- may help CRPS as well. May hold Aimovig 140mg sc q month for now. Previous preventative medication use: Had been on Botox for approx 5 yrs, but this stopped working. Amitriptyline, Topiramte, Propranolol, Depakote- stopped working. Emgality- was effective (changed only d/t insurance) Follow-up in 3 months or sooner p.r.n. Medications: New amitriptyline 25 - 50 mg (1 - 2 x 25 mg) PO BEDTIME 30 days 60 tabs 3RF Coding Level of Care Code Est Pt Level 4 (16047) Diagnoses Migraine without aura G43.009 Tardive dyskinesia G24.01 Parkinson's disease G20 Complex regional pain syndrome type 1, affecting unspecified site G90.50 Complex regional pain syndrome affected site: unspecified
[2023-10-12 11:13] VITALS: BP 98/82; PULSE 46; BMI 22.9
== END 2023-10-12 12:13 | disposition home or self-care (01) ==
PROVIDERS: PCP Family Medicine; Visit Provider Nurse Practitioner Family
DX: G43.009 Migraine without aura, not intractable, without status migrainosus (principal); G20.B1 Parkinson's disease with dyskinesia, without mention of fluctuations; G90.50 Complex regional pain syndrome I, unspecified
CPT/HCPCS: 99214

== ENCOUNTER → 2023-10-12 11:09 | Outpatient (BNVA) | payer MEDICARE, SELFPAY | PROVIDERS: PCP Family Medicine; Visit Provider Nurse Practitioner Family | DX: G43.009 Migraine without aura, not intractable, without status migrainosus (principal); G24.01 Drug induced subacute dyskinesia; G20.A1 Parkinson's disease without dyskinesia, without mention of fluctuations; G90.50 Complex regional pain syndrome I, unspecified | CPT/HCPCS: 99212 ==

== ENCOUNTER 2023-10-20 06:11 | Outpatient (REF) | payer MEDICARE, SELFPAY ==
--- NOTE | ~2023-10-20 | FL_ITS ---
CLINICAL INDICATION: Injury of lumbosacral plexus. FINDINGS: Technical assistance and equipment were provided by the Department of Radiology during intraoperative fluoroscopy for percutaneous injection. 3, limited fluoroscopic spot images are submitted. A radiologist was not present during the procedure. Images demonstrate the tips of percutaneous needles to project roughly over the expected location of nerve roots of right mid lumbar vertebral bodies. It is difficult to determine exact levels injection due to incomplete anatomical landmarks. Contrast is injected. The images are available for review on PACS. TOTAL FLUOROSCOPY TIME: 0.2 minutes. DOSE AREA PRODUCT: 0.03 Gy-cm2 (charles-centimeter squared) FL/FL guidance in treatment room IMPRESSION: Technical assistance and equipment provided by the Department of Radiology during intraoperative fluoroscopy, as above. Please see operative report for further details.
== END 2023-10-20 06:12 | disposition home or self-care (01) ==
LOC: CF 06:11
PROVIDERS: Visit Provider Internal Medicine
DX: S34.4XXA Injury of lumbosacral plexus, initial encounter (principal); G54.9 Nerve root and plexus disorder, unspecified; X58.XXXA Exposure to other specified factors, initial encounter; Y93.9 Activity, unspecified; Y92.9 Unspecified place or not applicable; Y99.9 Unspecified external cause status
CPT/HCPCS: 64483; 64484; J1100; Q9967

== ENCOUNTER 2023-10-20 09:54 | Outpatient (AMB) | payer MEDICARE, SELFPAY ==
[2023-10-20 10:04] VITALS: BP 120/74; RESP 16; O2SAT 98; BMI 22.8
--- NOTE | 2023-10-20 10:04 | MHC.OFFVIS ---
Intake Vital Signs 10/20/23 10:04 10/20/23 10:35 Height 6 ft Weight 168 lb BMI 22.8 BP 120/74 124/76 Blood Pressure Location Lt brachial Lt brachial Position Sitting Sitting Respiration 16 16 Pulse 64 Pulse Source Pulse Oximeter Pulse Oximeter Pulse Oximetry (%) 98 97 Oxygen Delivery Method Room Air Room Air Comment Pre-Op Post-Op Intake Visit Reasons: Right L1-L2 selective nerve root block Allergies dihydroergotamine Allergy (Severe, Verified 10/12/23 11:16) Vomiting erythromycin base Adverse Reaction (Intermediate, Verified 10/12/23 11:16) n/v NSAIDS (Non-Steroidal Anti-Inflamma Adverse Reaction (Verified 10/12/23 11:16) Unknown reglan Adverse Reaction (Uncoded 10/12/23 11:16) Unknown HPI Right L1-L2 selective nerve root block HPI Details Patient presents for scheduled procedure. Denies any recent cough, cold, infection, fever or other significant changes in medical history since last office visit. [facility] Medical History (Updated 10/12/23 @ 20:32 by EDDIE Holley) Bipolar disorder Anxiety HLD (hyperlipidemia) Hypothyroidism Depression Memory difficulties Kidney stones GERD (gastroesophageal reflux disease) Surgical History H/O foot surgery Hx of tonsillectomy History of ankle surgery Family History Father Cancer of adrenal gland High blood pressure High cholesterol Migraines Mother High cholesterol High blood pressure Diabetes Pulmonary fibrosis Social History Unable to assess alcohol history related to: Unknown Alcohol intake: never Patient Tobacco Use Status: Never used Tobacco Substance Use Type: Marijuana Physical Exam Vital Signs: Last Vital Signs Resp 16 10/20/23 10:04 BP 120/74 10/20/23 10:04 Pulse Ox 98 10/20/23 10:04 Oxygen Delivery Method Room Air 10/20/23 10:04 BMI result Body Mass Index 22.8 Office Procedures Details: Transforaminal epidural steroid injection, Right L1 and L2 After obtaining written consent, pre-procedure blood pressure and heart rate were stable and recorded in the nursing record. The patient was placed in the prone position on the fluoroscopy table. The lumbosacral area was prepped with chloraprep, allowed to dry and draped in sterile fashion. Using fluoroscopy, the skin overlying our target was anesthetized with 0.5% lidocaine. A 22 gauge 3.5 inch spinal needle was advanced to the safe triangle in the upper pole of the right L1 foramen. No paresthesias were elicited with needle placement and aspiration was negative for blood and CSF. Correct needle position was confirmed with approximately 1 ml contrast dye (Omnipaque 180 mg/ml) injected under real-time fluoroscopy. No evidence of vascular or intrathecal uptake was seen and there was both epidural and peripheral spread of the contrast agent. 5 mg dexamethasone plus 1 ml containing 0.5% lidocaine was slowly injected. The needle was flushed and removed. The same procedure was repeated for the remaining levels. The skin was cleansed and a sterile bandages were applied. The patient tolerated the procedure well and no complications were encountered. Following the procedure the patient's vital signs were stable. The patient was discharged home in good condition with post-procedural instructions. Time Out: Immediately prior to the procedure, the following was verbally confirmed that there is a signed consent form and that the correct patient, planned procedure, site and side are consistent with documentation and that necessary equipment and/or blood products are available prior to the start of the case. Complications: none EBL: <5 cc 20493 - Lumbar/Sacral 10519 - Lumbar/Sacral, additional level Procedure code (CPT) selection complete Assessment & Plan Assessment & Plan (1) Nerve root and plexus disorder, unspecified: Code(s): G54.9 - Nerve root and plexus disorder, unspecified Plan Patient is status post right L1 and L2 TFESI/SNRB. Patient tolerated procedure well and was discharged home in stable condition with discharge instructions. All questions were answered. We will follow-up via telephone or in clinic to assess response to therapy. A follow-up appointment was made during today's visit. Orders: Orders FL guidance in treatment room Today S34.4XXA - Injury of lumbosacral plexus, initial encounter Coding Level of Care Code Procedure Only Diagnoses Nerve root and plexus disorder, unspecified G54.9 CPT Codes Transforaminal Epidural Steroid Inj - TESI 3: 98719 - Lumbar/Sacral ([id number]) Transforaminal Epidural Steroid Inj - TESI 4: 30611 - Lumbar/Sacral, additional level ([id number])
[2023-10-20 10:35] VITALS: BP 124/76; PULSE 64; RESP 16; O2SAT 97
== END 2023-10-20 10:41 | disposition home or self-care (01) ==
LOC: HO.PMCPRC 09:54
PROVIDERS: PCP Family Medicine; Visit Provider Internal Medicine
DX: M54.15 Radiculopathy, thoracolumbar region (principal); G54.9 Nerve root and plexus disorder, unspecified
CPT/HCPCS: 64483; 64484

== ENCOUNTER 2023-11-16 08:19 | Outpatient (AMB) | payer MEDICARE, SELFPAY ==
--- NOTE | 2023-11-16 08:25 | MHC.OFFVIS ---
Intake Vital Signs 11/16/23 08:44 Height 6 ft Pulse 52 Pulse Source Pulse Oximeter Pulse Oximetry (%) 98 Oxygen Delivery Method Room Air Intake Visit Reasons: s/p Right L1-L2 selective nerve root block Allergies dihydroergotamine Allergy (Severe, Verified 11/16/23 08:43) Vomiting erythromycin base Adverse Reaction (Intermediate, Verified 11/16/23 08:43) n/v NSAIDS (Non-Steroidal Anti-Inflamma Adverse Reaction (Verified 11/16/23 08:43) Unknown reglan Adverse Reaction (Uncoded 11/16/23 08:43) Unknown Medication List - Last Reconciled 11/16/23 by Maricel Rodas, SUPPLY CHAIN ASSISTANT amitriptyline 10 - 20 mg (1 - 2 x 10 mg) PO BEDTIME 30 days amitriptyline 25 - 50 mg (1 - 2 x 25 mg) PO BEDTIME 30 days atorvastatin 80 mg PO DAILY cholecalciferol (vitamin D3) 50 mcg PO DAILY donepezil 10 mg PO DAILY 90 days erenumab-aooe (Aimovig Autoinjector) 140 mg subcut ONCE 28 days hydroxyzine pamoate (Vistaril) 50 mg PO BEDTIME lamotrigine 200 mg PO BID levothyroxine 100 mcg PO DAILY multivitamin 1 tab PO DAILY ondansetron HCl mg PO prazosin 4 mg PO QPM propranolol 20 mg PO BID 30 days propranolol ER 60 mg PO QDAY trazodone 400 mg PO BEDTIME zolmitriptan (Zomig) 5 mg PO Q2-4H PRN zolpidem 10 mg PO BEDTIME HPI s/p Right L1-L2 selective nerve root block HPI Details 63-year-old female who presents today to the office for status post right L1-L2 selective nerve root block The patient reports no relief following the procedure. She reports she has noticed skin roughness on the right side compared to the regular skin on her left back. States the areas is little smooth and sometimes feels rough than the other areas. Otherwise pain continues to be debilitating. She's interested in proceeding with neuromodulation. Still awaiting psych eval. Would like a one time prescription for stronger pain meds till she gets her procedure. Past Procedures: 10/20/23: Transforaminal epidural steroid injection, right L1 and L2 - no relief 05/11/23: Lumbar nerve root temporary nerve stimulator placement, right L1 - no relief [facility] Medical History (Updated 10/12/23 @ 20:32 by EDDIE Holley) Bipolar disorder Anxiety HLD (hyperlipidemia) Hypothyroidism Depression Memory difficulties Kidney stones GERD (gastroesophageal reflux disease) Surgical History H/O foot surgery Hx of tonsillectomy History of ankle surgery Family History Father Cancer of adrenal gland High blood pressure High cholesterol Migraines Mother High cholesterol High blood pressure Diabetes Pulmonary fibrosis Social History Unable to assess alcohol history related to: Unknown Alcohol intake: never Patient Tobacco Use Status: Never used Tobacco Substance Use Type: Marijuana Review of Systems Const All systems reviewed & are unremarkable except as noted in HPI and below Physical Exam Vital Signs: Last Vital Signs Pulse 52 11/16/23 08:44 Pulse Ox 98 11/16/23 08:44 Oxygen Delivery Method Room Air 11/16/23 08:44 General: Appears afebrile. Alert and oriented. Mood and affect appropriate. Follows and participates in conversation appropriately. Respiratory effort is unlabored. Able to transition from sit to stand unassisted. Allodynia to touch in the right lower back and flank. Results Reviewed Results Reviewed: No imaging is available for review Assessment & Plan Assessment & Plan (1) Traumatic lumbosacral plexopathy: Code(s): S34.4XXA - Injury of lumbosacral plexus, initial encounter Qualifiers: Encounter type: subsequent encounter Qualified Code(s): S34.4XXD - Injury of lumbosacral plexus, subsequent encounter (2) Nerve root and plexus disorder, unspecified: Code(s): G54.9 - Nerve root and plexus disorder, unspecified (3) Complex regional pain syndrome I, unspecified: Comment: right torso Code(s): G90.50 - Complex regional pain syndrome I, unspecified Qualifiers: Complex regional pain syndrome affected site: unspecified Qualified Code(s): G90.50 - Complex regional pain syndrome I, unspecified Plan Discussed SCS/DRG stimulation as possible treatment options for the right low back CRPS symptoms. She is still being psychological evaluation, when she is cleared for that, we will proceed with a T12, L1, L2 DRG stimulator trial. If it is found to be technically challenging, we can consider doing a trial with the dorsal column SCS lead as well. Scribed for Dr. Tinoco by Yevgeniy Sosa, medical transport specialist, on 11/16/2023. I, Dr. Tinoco, have personally reviewed and agree with the information entered by the scribe. Medications: New oxycodone-acetaminophen 5-325 mg Partial Fill upon patient request. 1 tab PO Q12H PRN 60 tabs 0RF pain Coding Level of Care Code Est Pt Level 3 (48945) Diagnoses Injury of lumbosacral plexus, subsequent encounter S34.4XXD Encounter type: subsequent encounter Nerve root and plexus disorder, unspecified G54.9 Complex regional pain syndrome type 1, affecting unspecified site G90.50 Complex regional pain syndrome affected site: unspecified
[2023-11-16 08:44] VITALS: PULSE 52; O2SAT 98
== END 2023-11-16 09:01 | disposition home or self-care (01) ==
LOC: HO.PMC 08:19
PROVIDERS: PCP Family Medicine; Visit Provider Internal Medicine
DX: S34.4XXD Injury of lumbosacral plexus, subsequent encounter (principal); G54.9 Nerve root and plexus disorder, unspecified; G90.50 Complex regional pain syndrome I, unspecified
CPT/HCPCS: 99213

== ENCOUNTER → 2023-11-16 08:19 | Outpatient (BNVA) | payer MEDICARE, SELFPAY | PROVIDERS: PCP Family Medicine; Visit Provider Internal Medicine | DX: S34.4XXD Injury of lumbosacral plexus, subsequent encounter (principal); G54.9 Nerve root and plexus disorder, unspecified; G90.50 Complex regional pain syndrome I, unspecified; X58.XXXD Exposure to other specified factors, subsequent encounter | CPT/HCPCS: 99212 ==

== ENCOUNTER 2024-02-13 13:12 | Outpatient (AMB) | payer MEDICARE, SELFPAY ==
--- NOTE | 2024-02-13 13:14 | MHC.OFFVIS ---
Vital Signs 02/13/24 13:16 Height 6 ft Weight 166 lb 4 oz BMI 22.5 BP 116/78 Blood Pressure Location Rt brachial Position Sitting Intake Visit Reasons: follow up migraine/Parkinson-LVM Intake Note: Patient presents for follow up migraines/parkinson's. no issues or concerns Allergies dihydroergotamine Allergy (Severe, Verified 02/13/24 13:19) Vomiting erythromycin base Adverse Reaction (Intermediate, Verified 02/13/24 13:19) n/v NSAIDS (Non-Steroidal Anti-Inflamma Adverse Reaction (Verified 02/13/24 13:19) Unknown reglan Adverse Reaction (Uncoded 02/13/24 13:19) Unknown Medication List - Last Reconciled 02/13/24 by EDDIE Holley amitriptyline 50 mg PO BEDTIME 30 days atorvastatin 80 mg PO DAILY carbidopa-levodopa 25-100 mg 2 tabs PO BID cholecalciferol (vitamin D3) 50 mcg PO DAILY donepezil 10 mg PO DAILY 90 days erenumab-aooe (Aimovig Autoinjector) 140 mg subcut ONCE 28 days hydroxyzine pamoate (Vistaril) 50 mg PO BEDTIME lamotrigine 200 mg PO BID levothyroxine 100 mcg PO DAILY multivitamin 1 tab PO DAILY ondansetron HCl mg PO oxycodone-acetaminophen 5-325 mg 1 tab PO Q12H PRN prazosin 4 mg PO QPM propranolol 20 mg PO BID 30 days propranolol ER 60 mg PO QDAY trazodone 400 mg PO BEDTIME zolmitriptan (Zomig) 5 mg PO Q2-4H PRN zolpidem 10 mg PO BEDTIME HPI Comments Details: 63-yr-old female presents for f/u visit. Pt reports she will be undergoing a DRG procedure on 03/07/[address] Tinoco at [facility]- which will hopefully help her chronic back pain. Pt did have a [facility] movement d/o consult w/ Dr Mai Hernandez at [facility] via Zoom- was told to resume the CD-LD slowly over 3 weeks up to 1 tab QID and then to maintain this for another 6 weeks to assess full effect. At this point, she is on CD-LD 25-100mg- 1, 2, 2, 1- she takes this at different times depending on when she wakes up and when she eats. She has started to notice less finger and toe movement when she is going to bed- can fall asleep easier. She is not noticing any on or off times. Her TD symptoms are not bothersome. Migraine have been stable- has had 3 migraine days in the last 3 weeks. Occurs randomly. Zomig is helpful. Her resting Heart Rate is now in the 50s. ADL's: Ind Swallowing: None Drooling: None Orthostatic lightheadedness: Some, brief. Maybe not drinking enough. Constipation: Using a probiotic which helps. Urinary symptoms: None Tremor: Left 4th/5th fingers, toe movements. Dyskinesia: has oral movements- not bothersome Stiffness: general- some. Gait changes: Maybe balance is worse Freezing: None Falls: Fell into the corner of a door frame as she was walking down the [place]. Mood: Mood is ok Hallucinations: None Memory: Stable. Sleep: Sucks Exercise: None- d/t back pain PFSH Medical History (Updated 10/12/23 @ 20:32 by EDDIE Holley) Bipolar disorder Anxiety HLD (hyperlipidemia) Hypothyroidism Depression Memory difficulties Kidney stones GERD (gastroesophageal reflux disease) Surgical History H/O foot surgery Hx of tonsillectomy History of ankle surgery Family History Father Cancer of adrenal gland High blood pressure High cholesterol Migraines Mother High cholesterol High blood pressure Diabetes Pulmonary fibrosis Social History Unable to assess alcohol history related to: Unknown Alcohol intake: never Patient Tobacco Use Status: Never used Tobacco Substance Use Type: Marijuana Review of Systems Const All systems reviewed & are unremarkable except as noted in HPI and below Physical Exam Vital Signs: Last Vital Signs BP 116/78 02/13/24 13:16 BMI result Body Mass Index 22.5 Const General: cooperative and no acute distress Resp Effort & Inspection: normal respiratory effort and able to speak in complete sentences Neuro Other: Alert and oriented x3 Involuntary oral-buccal and nose movements. Involuntary L > R hand flexion/extension- decreased Toes- L > R tapping toes. LUE 5th finger rest tremor. BUE postural tremor. Stands easier today, less noticable antalgic gait, and improved step length. Pleasant affect Assessment & Plan Assessment & Plan (1) Parkinson's disease: Comment: Very early symptoms of Parkinson's in setting of old positive DaTSCAN and tardive dyskinesia. Code(s): G20 - Parkinson's disease Category: Medical (2) Altered gait: Code(s): R26.9 - Unspecified abnormalities of gait and mobility Category: Medical (3) Tardive dyskinesia: Code(s): G24.01 - Drug induced subacute dyskinesia Category: Medical (4) Migraine without aura: Code(s): G43.009 - Migraine without aura, not intractable, without status migrainosus Category: Medical Plan For PD and TD: Continue CD-LD 25-100mg titration, up to 1 tab qid (every 4 hours after waking up in am, as pt wakes up at different times). Reviewed optimal timing, frequency, and to take 30 min before or 60 min after protein intake. However if she wakes up very hungry, may take 1st am dose w/ banana or cracker. Reviewed importance of regular physical activity in managing PD s/s, and hopefully upcoming DGR procedure will improve pain control and thus allow pt to increase her physical activity. Monitor TD s/s- if becomes more bothersome- could reconsider [place] trial. Pt is no longer on any antipsychotic agents, although she does continue on lamotrigene, trazodone, gabapnetin. For acute headache treatment: Continue Zomig and Tylenol prn- advised she may repeat her Zomig dose up to 2 tabs per day. Previous acute medication use: Sumatriptan po/inj- stopped working. Took 3 doses of Ubrelvy- 100mg- ineffective.. For headache prevention medication: Continue Amitriptyline 50mg qhs- may help CRPS as well. May hold Aimovig 140mg sc q month for now. Previous preventative medication use: Had been on Botox for approx 5 yrs, but this stopped working. Amitriptyline, Topiramte, Propranolol, Depakote- stopped working. Emgality- was effective (changed only d/t insurance) Follow-up in 3-6 months or sooner p.r.n. Medications: New carbidopa-levodopa 25-100 mg 1 tab orally pt titrating up to 1 tab qid; Discontinued erenumab-aooe (Aimovig Autoinjector) Discontinued Reason: Doctor's Order 140 mg subcut ONCE 28 days 1 mL 6RF Coding Level of Care Code Est Pt Level 4 (17951) Diagnoses Parkinson's disease G20 Altered gait R26.9 Tardive dyskinesia G24.01 Migraine without aura G43.009
[2024-02-13 13:16] VITALS: BP 116/78; BMI 22.5
== END 2024-02-13 14:19 | disposition home or self-care (01) ==
PROVIDERS: PCP Family Medicine; Visit Provider Nurse Practitioner Family
DX: G20.B1 Parkinson's disease with dyskinesia, without mention of fluctuations (principal); R26.9 Unspecified abnormalities of gait and mobility; G43.009 Migraine without aura, not intractable, without status migrainosus
CPT/HCPCS: 99214

== ENCOUNTER → 2024-02-13 13:12 | Outpatient (BNVA) | payer MEDICARE, SELFPAY | PROVIDERS: PCP Family Medicine; Visit Provider Nurse Practitioner Family | DX: G20.A1 Parkinson's disease without dyskinesia, without mention of fluctuations (principal); R26.9 Unspecified abnormalities of gait and mobility; G24.01 Drug induced subacute dyskinesia; G43.009 Migraine without aura, not intractable, without status migrainosus; Z79.899 Other long term (current) drug therapy | CPT/HCPCS: 99212 ==

== ENCOUNTER 2024-03-05 11:36 | Outpatient (AMB) | payer MEDICARE, SELFPAY ==
--- NOTE | 2024-03-05 11:40 | A.OFFVIS_ITS ---
Intake Visit Reasons: Follow Up-CONF Intake Note: Patient presents for concerns. Patient tapered up on levodopa stated she was vomiting,constipated dry mouth so she stopped levodopa. Allergies dihydroergotamine Allergy (Severe, Verified 03/05/24 11:43) Vomiting erythromycin base Adverse Reaction (Intermediate, Verified 03/05/24 11:43) n/v NSAIDS (Non-Steroidal Anti-Inflamma Adverse Reaction (Verified 03/05/24 11:43) Unknown reglan Adverse Reaction (Uncoded 03/05/24 11:43) Unknown Medication List - Last Reconciled 03/05/24 by EDDIE Holley amitriptyline 50 mg PO BEDTIME 30 days atorvastatin 80 mg PO DAILY carbidopa-levodopa 25-100 mg 1 tab orally pt titrating up to 1 tab qid; cholecalciferol (vitamin D3) 50 mcg PO DAILY donepezil 10 mg PO DAILY 90 days hydroxyzine pamoate (Vistaril) 50 mg PO BEDTIME lamotrigine 200 mg PO BID levothyroxine 100 mcg PO DAILY multivitamin 1 tab PO DAILY ondansetron HCl mg PO oxycodone-acetaminophen 5-325 mg 1 tab PO Q12H PRN prazosin 4 mg PO QPM propranolol 20 mg PO BID 30 days propranolol ER 60 mg PO QDAY trazodone 400 mg PO BEDTIME zolmitriptan (Zomig) 5 mg PO Q2-4H PRN zolpidem 10 mg PO BEDTIME HPI Comments Details: 63-yr-old female presents for urgent f/u visit. Pt reports she had increased the CD-LD per the recommended titration schedule. Started CD-LD 25-100mg approx 2 weeks ago. She states during the titration, she started to feel sick, nauseous, and have more low grade headaches. Once she had been taking this dose for 1 week, she started having constipation f/b N/V, not sleeping, dry mouth, anorexia, mild GI upset. Her last BM was 1 week ago. She has been taking Miralax 17gm qam, but this is not helping. Drinking gatorade. She reached out to the office last week, she has weaned off the CD-LD (last dose was 2-3 days ago). Today, she is still not feeling that great , has abd tenderness. Eating is still causing nausea. These s/s are making it difficult to sleep. Denies fever, chills, myalgia, arthalgia, urinary changes. Denies any other medication changes, travel. She feels her tremor was better when taking the full dose of CD-LD 25-100mg 1 tab qid. Note pt is scheduled for a lumbar spine procedure in 2 days. [facility] Medical History (Updated 03/05/24 @ 12:14 by EDDIE Holley) Bipolar disorder Anxiety HLD (hyperlipidemia) Hypothyroidism Depression Memory difficulties Kidney stones GERD (gastroesophageal reflux disease) Surgical History H/O foot surgery Hx of tonsillectomy History of ankle surgery Family History Father Cancer of adrenal gland High blood pressure High cholesterol Migraines Mother High cholesterol High blood pressure Diabetes Pulmonary fibrosis Social History Unable to assess alcohol history related to: Unknown Alcohol intake: never Patient Tobacco Use Status: Never used Tobacco Substance Use Type: Marijuana Physical Exam Const General: cooperative and no acute distress Resp Effort & Inspection: normal respiratory effort and able to speak in complete sentences GI Palpation (GI): Tenderness to palpation present (GI) in the epigastrum and periumbilically (more right sided) Auscultation: Hypoactive bowel sounds present (in all quadrants) Neuro Other: Alert and oriented x3 Involuntary oral-buccal and nose movements. Involuntary L > R hand flexion/extension- decreased Toes- L > R tapping toes. LUE rest tremor. Stands easier today, less noticeable antalgic gait, and improved step length. Pleasant affect Assessment & Plan Assessment & Plan (1) Abdominal pain: Code(s): R10.9 - Unspecified abdominal pain Category: Medical (2) Constipation: Code(s): K59.00 - Constipation, unspecified Category: Medical (3) Parkinson's disease: Comment: Very early symptoms of Parkinson's in setting of old positive DaTSCAN and tardive dyskinesia. Code(s): G20 - Parkinson's disease Category: Medical (4) Migraine without aura: Code(s): G43.009 - Migraine without aura, not intractable, without status migrainosus Category: Medical (5) Tardive dyskinesia: Code(s): G24.01 - Drug induced subacute dyskinesia Category: Medical Plan ? if GI s/s are secondary to constipation or secondary to CD-LD, or a combination of both factors. Hold CD-LD. Pt advised to have XR abd today- [place] [facility]. Trial Lactulose 15ml bid constipation. Consider referal to GI. Once pt is feeling better, consider trying a longer-acting CD-LD formulation, such as CD-LD ER, Rytary, and/or adjuncting w/ carbidopa tabs. Orders: Orders XR acute abdomen series Today K59.00 - Constipation, unspecified, R10.9 - Unspecified abdominal pain Medications: New lactulose 15 mL PO BID 30 days PRN 237 mL 1RF constipation Coding Level of Care Code Est Pt Level 4 (85578) Diagnoses Abdominal pain R10.9 Constipation K59.00 Parkinson's disease G20 Migraine without aura G43.009 Tardive dyskinesia G24.01
== END 2024-03-05 12:24 | disposition home or self-care (01) ==
PROVIDERS: PCP Family Medicine; Visit Provider Nurse Practitioner Family
DX: R10.9 Unspecified abdominal pain (principal); K59.00 Constipation, unspecified; G20.B1 Parkinson's disease with dyskinesia, without mention of fluctuations; G43.009 Migraine without aura, not intractable, without status migrainosus
CPT/HCPCS: 99214

== ENCOUNTER 2024-03-05 11:36 | Outpatient (REF) | payer MEDICARE, SELFPAY ==
--- NOTE | ~2024-03-05 | XR_ITS ---
EXAMINATION: XR ABDOMEN COMPLETE CLINICAL INDICATION: Unspecified abdominal pain. COMPARISON: None available. TECHNIQUE: 3 views of the abdomen. FINDINGS: Large amount of stool throughout the colon and rectum, possibly representing constipation. No abnormally dilated loops of bowel. There are a few scattered nonspecific air-fluid levels in the central abdomen. Degenerative changes in the lumbar spine. XR/XR acute abdomen series IMPRESSION: Large amount of stool throughout the colon and rectum, possibly representing constipation. No abnormally dilated loops of bowel. There are a few scattered nonspecific air-fluid levels in the central abdomen. This study was presented today March 21, 2024 for interpretation. Stat results provided at this time as requested by referring provider.
== END 2024-03-05 11:37 | disposition home or self-care (01) ==
LOC: HO.XRAY 11:36
PROVIDERS: PCP Family Medicine; Visit Provider Nurse Practitioner Family
DX: R10.9 Unspecified abdominal pain (principal); K59.00 Constipation, unspecified
CPT/HCPCS: 74022; 99212

== ENCOUNTER 2024-03-07 09:54 | Day surgery (SDC) | payer MEDICARE, SELFPAY ==
--- NOTE | 2024-03-06 09:38 | HO.ANESPROP2 ---
Documented by User: Maxine Rodriguez NP 03/06/24 09:39 HPI - Anesthesia Eval Consult details Narrative: 63yo F for T11,L1 and possible L2 [facility]al [facility] Active Problems Active Problems: All Active Problems Constipation (Acute) Abdominal pain (Acute) Hypothyroidism (Acute) Fatigue (Acute) Complex regional pain syndrome I, unspecified (Acute) Parkinson's disease (Acute) Paresthesias (Acute) Low back pain (Acute) Nerve root and plexus disorder, unspecified (Acute) Traumatic lumbosacral plexopathy (Acute) Altered gait (Acute) Cognitive changes (Acute) Fall (Acute) Tardive dyskinesia (Acute) Tremor (Acute) Migraine without aura (Acute) Past Medical History Medical History (Updated 03/05/24 @ 12:14 by EDDIE Holley) Bipolar disorder Anxiety HLD (hyperlipidemia) Hypothyroidism Depression Memory difficulties Kidney stones GERD (gastroesophageal reflux disease) Family History Family History Father Cancer of adrenal gland High blood pressure High cholesterol Migraines Mother High cholesterol High blood pressure Diabetes Pulmonary fibrosis Surgical History Surgical History H/O foot surgery Hx of tonsillectomy History of ankle surgery Social History Social History Unable to assess alcohol history related to: Unknown Alcohol intake: never Patient Tobacco Use Status: Never used Tobacco Use of substances other than those prescribed or required for medical reasons: Yes Substance Use Type: Marijuana Are you DNR?: No Advance Directives: No Advance Directives Information Provided: Yes Meds Allergies Allergy/AdvReac Type Severity Reaction Status Date / Time dihydroergotamine Allergy Severe Vomiting Verified 03/05/24 11:43 erythromycin base AdvReac Intermediate n/v Verified 03/05/24 11:43 NSAIDS (Non-Steroidal AdvReac Intermediate Stomach Verified 03/07/24 11:18 Anti-Inflamma Upset reglan AdvReac Severe Unknown Uncoded 03/07/24 11:18 Home Medications ?Medication ?Instructions ?Recorded ?Confirmed ?Last Taken ?Type atorvastatin 80 mg tablet 80 mg PO DAILY 06/11/22 03/05/24 05/11/23 History lamotrigine 200 mg tablet 200 mg PO BID 06/11/22 03/07/24 03/07/24 History levothyroxine 100 mcg tablet 100 mcg PO DAILY 06/11/22 03/07/24 03/07/24 History ondansetron HCl 4 mg tablet mg PO 06/11/22 03/05/24 Unknown History prazosin 2 mg capsule 4 mg PO QPM 06/11/22 03/05/24 Unknown History trazodone 100 mg tablet 400 mg PO BEDTIME 06/11/22 03/05/24 Unknown History multivitamin 1 tab PO DAILY 06/15/22 03/05/24 05/11/23 History zolmitriptan 5 mg tablet (Zomig) 5 mg PO Q2-4H PRN 06/15/22 03/05/24 Unknown History hydroxyzine pamoate 50 mg capsule 50 mg PO BEDTIME 01/24/23 03/05/24 Unknown History (Vistaril) cholecalciferol (vitamin D3) 50 50 mcg PO DAILY 02/23/23 03/05/24 Unknown History mcg (2,000 unit) capsule zolpidem 10 mg tablet 10 mg PO BEDTIME 02/23/23 03/05/24 Unknown History Assessment and Plan Assessment Anesthesia Assessment: Chart Reviewed Documented by User: Lalo Banegas MD 03/07/24 14:44 [facility] Past Medical History Medical History (Updated 03/05/24 @ 12:14 by EDDIE Holley) Bipolar disorder Anxiety HLD (hyperlipidemia) Hypothyroidism Depression Memory difficulties Kidney stones GERD (gastroesophageal reflux disease) Family History Family History Father Cancer of adrenal gland High blood pressure High cholesterol Migraines Mother High cholesterol High blood pressure Diabetes Pulmonary fibrosis Family history of problems with anesthesia: No Surgical History Surgical History H/O foot surgery Hx of tonsillectomy History of ankle surgery History of Problems with Anesthesia: No Social History Social History Unable to assess alcohol history related to: Unknown Alcohol intake: never Patient Tobacco Use Status: Never used Tobacco Use of substances other than those prescribed or required for medical reasons: Yes Substance Use Type: Marijuana Are you DNR?: No Advance Directives: No Advance Directives Information Provided: Yes Meds Allergies Allergy/AdvReac Type Severity Reaction Status Date / Time dihydroergotamine Allergy Severe Vomiting Verified 03/05/24 11:43 erythromycin base AdvReac Intermediate n/v Verified 03/05/24 11:43 NSAIDS (Non-Steroidal AdvReac Intermediate Stomach Verified 03/07/24 11:18 Anti-Inflamma Upset reglan AdvReac Severe Unknown Uncoded 03/07/24 11:18 Home Medications ?Medication ?Instructions ?Recorded ?Confirmed ?Last Taken ?Type atorvastatin 80 mg tablet 80 mg PO DAILY 06/11/22 03/05/24 05/11/23 History lamotrigine 200 mg tablet 200 mg PO BID 06/11/22 03/07/24 03/07/24 History levothyroxine 100 mcg tablet 100 mcg PO DAILY 06/11/22 03/07/24 03/07/24 History ondansetron HCl 4 mg tablet mg PO 06/11/22 03/05/24 Unknown History prazosin 2 mg capsule 4 mg PO QPM 06/11/22 03/05/24 Unknown History trazodone 100 mg tablet 400 mg PO BEDTIME 06/11/22 03/05/24 Unknown History multivitamin 1 tab PO DAILY 06/15/22 03/05/24 05/11/23 History zolmitriptan 5 mg tablet (Zomig) 5 mg PO Q2-4H PRN 06/15/22 03/05/24 Unknown History hydroxyzine pamoate 50 mg capsule 50 mg PO BEDTIME 01/24/23 03/05/24 Unknown History (Vistaril) cholecalciferol (vitamin D3) 50 50 mcg PO DAILY 02/23/23 03/05/24 Unknown History mcg (2,000 unit) capsule zolpidem 10 mg tablet 10 mg PO BEDTIME 02/23/23 03/05/24 Unknown History Exam Airway Mallampati Class: I TM Dist: >3cm Neck ROM: Full Loose/Missing/Broken Teeth: No Heart: ok Lungs: ok Assessment and Plan Assessment Anesthesia Assessment: Anesthesia Plan Discussed Final Anesthetic Review Family History of Problems with Anesthesia: No History of Problems with Anesthesia: No NPO: Yes ASA Class: III Final Preanesthetic Review: No Changes in Pt Med Stat, Meds/Allgs Chart Reviewed, Consent Obtained/Reviewed and Anes Risks/Benef Reviewed Patient Risk: Intermediate Procedure Risk: Intermediate Anesthetic Plan Anesthetic Plan: MAC: and Agree w/ Assess. and Plan Disposition: Standard PACU
--- NOTE | ~2024-03-07 | FL_ITS ---
EXAMINATION: XR FLUOROSCOPY WITH IMAGES CLINICAL INFORMATION: Spinal implant. COMPARISON: None available. TECHNIQUE: Fluoroscopy Supervised By: Dr. Wenceslao Tinoco. Fluoroscopy Time: 8 minutes 7 seconds. Cumulative Dose: 93.2 mGy. DAP: 0.471 Gy-cm2. Images: 5. FINDINGS: Intraoperative fluoroscopy and spot films were performed during a procedure in the OR. A left marker is seen on the right side of the radiograph. 2 catheters are present with their tips at the inferior aspects of T11 and T12. Based upon the marker on the radiograph I would assume these to be on the right. Please correlate with Dr. Wenceslao Tinoco' report for complete details and precise laterality. FL/FL guidance in OR IMPRESSION: Intraoperative fluoroscopy and spot films were obtained. Please see Dr. Wenceslao Tinoco' report for complete details.
[2024-03-07 11:13] VITALS: BMI 22.6
[2024-03-07 11:34] VITALS: BP 131/71; PULSE 60; RESP 16; TEMP 37.1; O2SAT 97
[2024-03-07] MEDS: Lactated Ringers 1,000 ML 100 ML IVCONT (11:51)
[2024-03-07 13:13] LABS: MRSA Nasal PCR NEGATIVE (Negative); SA Nasal PCR NEGATIVE (Negative)
--- NOTE | 2024-03-07 13:49 | P.BOP_ITS ---
Brief Operative Note Date of Service: 03/07/24 Pre-op diagnosis: CRPS, nerve root disorder Post-op diagnosis: same Procedure: Right T12, L1 dorsal root ganglion stimulator placement Implants: Roberts DRG trial leads Surgeon: Wenceslao Tinoco MD Anesthesia: MAC Was an Rectifying Attendant used for this Procedure?: No Estimated blood loss (mL): 2 Pathology: none sent Condition: stable Disposition: PACU
--- NOTE | 2024-03-07 13:49 | MHC.SHP ---
Pre-Procedural Eval Section A - 24 Hr Update-Section A only Date of Service: 03/07/24 The patient is an INPATIENT: No Changes since office visit: Yes Patient answered all questions The patient has been examined within 24 hours of the surgical procedure. The History & Physical has been completed within 30 days and I have reviewed it.: No Section B - Complete if H&P > 30 days Chief Complaint: Nerve root and plexus disorder, unspecified Relevant Family History (Specify if Yes): No Relevant Social History: None Present Medications: see Short Stay Collaborative assessment Medical History: No relevant PMH History of Previous Operations: No relevant previous surgery Allergies: Allergies Allergy/AdvReac Type Severity Reaction Status Date / Time dihydroergotamine Allergy Severe Vomiting Verified 03/05/24 11:43 erythromycin base AdvReac Intermediate n/v Verified 03/05/24 11:43 NSAIDS (Non-Steroidal AdvReac Intermediate Stomach Verified 03/07/24 11:18 Anti-Inflamma Upset reglan AdvReac Severe Unknown Uncoded 03/07/24 11:18 Review of Systems Sugical H&P ROS: Negative: Constitution, Cardiovascular and Respiratory Exam Surgical H&P Exam: Normal: HEENT, Normal: Heart and Normal: Lungs Plan Diagnosis/Plan: Unchanged I have reviewed the history and physical and performed a pertinent physical examination on my patient. No changes have occurred unless specified. Time Spent With Patient Time: Total time managing care of this patient today ____ minutes.
--- NOTE | 2024-03-07 13:49 | W.PM.OPN ---
Operative Note Operative Note Date of Service: 03/07/24 Narrative: Preoperative diagnosis: CRPS, nerve root disorder Postoperative diagnosis: Same as above Percutaneous Dorsal Root Ganglion Stimulator Trial, RIGHT, T12 and L1 After obtaining written consent, pre-procedure blood pressure and heart rate were recorded and are in the nursing record for review. A peripheral IV was started. Antibiotics, cefazolin 2 gram, were given intraoperatively. The patient was placed in a prone position.? The patient was sedated by the anesthesiologist. The thoracolumbar area was widely prepped with ChloraPrep, allowed to dry and draped in sterile fashion. Fluoroscopy was used to identify the target interlaminar spaces and appropriate needle insertion sites. The skin and subcutaneous tissue was anesthetized with 0.5% lidocaine mixed with 0.25% bupivacaine. A contralateral, paramedian, antegrade approach was utilized and a 14 great Touhy needle was advanced towards the target interlaminar space. The needle tip was directed towards the target foramina. Loss of resistance to air was utilized to access the epidural space in the midline. A prepacked sheath was introduced through the needle. The electrode lead was loaded into the pre packed sheath and advanced just past the tip of the sheath. The sheath and the electrode were then advanced towards the target foramen. The 4 contact lead was then advanced through the foramen so as to have to contact placed between the medial and lateral borders of the target pedicle. Once the correct placement of the lead was confirmed on AP and lateral views, the sheath was withdrawn to the tip of the needle while making sure that the lead did not migrate during the withdrawal. Holding the sheath back, the lead was advanced to the epidural space to create a superior loop of the lead wire above the level of the foramen to the level of the disc above. The sheath was then angled inferiorly and a similar loop was created inferior to the level of the target foramen. A second 4 contact lead was advanced in a similar fashion at the level below. The plastic sheath, stylet and Tuohy needles were then completely removed under live fluoroscopy. The stimulator wires were then secured with Steri-Strips, gauze and tegaderm for skin dressing. The patient tolerated the procedure well and no complications were encountered. Following the procedure the patient's vital signs were stable. The patient was discharged home in good condition after being given discharge instructions. Time Out: Immediately prior to the procedure, the following was verbally confirmed that there is a signed consent form and that the correct patient, planned procedure, site and side are consistent with documentation and that necessary equipment and/or blood products are available prior to the start of the case. Complications: none EBL: <5 cc
[2024-03-07 15:49] VITALS: BP 132/76; PULSE 65; RESP 16; TEMP 36.2; O2SAT 100
[2024-03-07 15:54] VITALS: BP 139/77; PULSE 66; RESP 14; O2SAT 100
[2024-03-07 15:59] VITALS: BP 130/75; PULSE 63; RESP 15; O2SAT 99
[2024-03-07] MEDS: oxyCODONE HCl Immed Release 5 MG TABLET PO (16:00)
[2024-03-07 16:01] VITALS: BP 133/81; PULSE 64; RESP 16; O2SAT 100
[2024-03-07 16:16] VITALS: BP 142/84; PULSE 62; RESP 14; TEMP 36.2; O2SAT 100
== END 2024-03-07 16:32 | disposition home or self-care (01) ==
PROVIDERS: Registered Nurse Emergency; PCP Family Medicine; Visit Provider Internal Medicine
PROC: (CPT 63650; principal; 2024-03-07 12:10)
DX: G54.9 Nerve root and plexus disorder, unspecified (principal); G90.50 Complex regional pain syndrome I, unspecified; R23.4 Changes in skin texture; E78.5 Hyperlipidemia, unspecified; E03.9 Hypothyroidism, unspecified; R41.3 Other amnesia; K21.9 Gastro-esophageal reflux disease without esophagitis; F31.9 Bipolar disorder, unspecified; F41.9 Anxiety disorder, unspecified; Z79.899 Other long term (current) drug therapy; Z88.1 Allergy status to other antibiotic agents; Z88.6 Allergy status to analgesic agent; Z88.8 Allergy status to other drugs, medicaments and biological substances
CPT/HCPCS: 63650 ×2; 87640; 87641; A4364; C1897; J0690; J2250; J3010

== ENCOUNTER → 2024-03-07 09:54 | Outpatient (BNV) | payer MEDICARE, SELFPAY | PROVIDERS: PCP Family Medicine; Visit Provider Internal Medicine | DX: G54.9 Nerve root and plexus disorder, unspecified (principal) | CPT/HCPCS: 63650 ==

== ENCOUNTER 2024-03-15 10:16 | Outpatient (AMB) | payer MEDICARE, SELFPAY ==
[2024-03-15 10:19] VITALS: BP 127/77; PULSE 78; BMI 22.5
--- NOTE | 2024-03-15 10:19 | MHC.OFFVIS ---
Vital Signs 03/15/24 10:19 Height 6 ft Weight 166 lb BMI 22.5 BP 127/77 Blood Pressure Location Lt brachial Position Sitting Pulse 78 Pulse Source Pulse Oximeter Intake Visit Reasons: S/p DRG Stimulator Trial 03/07/24 Allergies dihydroergotamine Allergy (Severe, Verified 03/05/24 11:43) Vomiting erythromycin base Adverse Reaction (Intermediate, Verified 03/05/24 11:43) n/v NSAIDS (Non-Steroidal Anti-Inflamma Adverse Reaction (Intermediate, Verified 03/07/24 11:18) Stomach Upset reglan Adverse Reaction (Severe, Uncoded 03/07/24 11:18) Unknown HPI HPI S/p DRG Stimulator Trial 03/07/24: Details: Anya is here for follow-up after DRG trial of the right T12 and L1 nerve roots. Overall she reports about 65% improvement in her symptoms. She reports significant improvement in her quality of life and is interested in proceeding with the implant. She has various questions about the nature of the implant and the battery that is going to be implanted. She also states that she was missing coverage in the superior zone of her pain and would like that to be covered if possible. [facility] Medical History (Updated 03/05/24 @ 12:14 by EDDIE Holley) Bipolar disorder Anxiety HLD (hyperlipidemia) Hypothyroidism Depression Memory difficulties Kidney stones GERD (gastroesophageal reflux disease) Surgical History H/O foot surgery Hx of tonsillectomy History of ankle surgery Family History Father Cancer of adrenal gland High blood pressure High cholesterol Migraines Mother High cholesterol High blood pressure Diabetes Pulmonary fibrosis Social History Unable to assess alcohol history related to: Unknown Alcohol intake: never Patient Tobacco Use Status: Never used Tobacco Substance Use Type: Marijuana Physical Exam Vital Signs: Last Vital Signs Pulse 78 03/15/24 10:19 BP 127/77 03/15/24 10:19 BMI result Body Mass Index 22.5 On exam today: Appears afebrile. Alert and oriented. Mood and affect appropriate. Follows and participates in conversation appropriately. Respiratory effort is unlabored. Able to transition from sit to stand unassisted. Ambulates with bilaterally normal heel strike and toe off. Able to stand and walk on toes and heels. Dressing and leads removed with tips intact. Assessment & Plan Assessment & Plan (1) Complex regional pain syndrome I, unspecified: Comment: right torso Code(s): G90.50 - Complex regional pain syndrome I, unspecified Category: Medical Qualifiers: Complex regional pain syndrome affected site: unspecified Qualified Code(s): G90.50 - Complex regional pain syndrome I, unspecified Plan 63-year-old female with CRPS of the right torso region with a good response to right T12, L1 dorsal root ganglion stimulator trial. She reports some missing zone of coverage in the superior portion of her painful area but for the area that was covered, she had an excellent response. She is interested in proceeding with an implant. We will plan for right T11, T12, L1 DRG stimulator implant placement. She reported a very active lifestyle including swimming and rowing. She had concerns about risk of lead migration. We discussed pursuing an implant with anchoring of the leads. All questions were answered. Patient is on board with the plan. Coding Level of Care Code Est Pt Level 3 (36160) Diagnoses Complex regional pain syndrome type 1, affecting unspecified site G90.50 Complex regional pain syndrome affected site: unspecified
== END 2024-03-15 10:36 | disposition home or self-care (01) ==
PROVIDERS: PCP Family Medicine; Visit Provider Internal Medicine
DX: G90.50 Complex regional pain syndrome I, unspecified (principal)
CPT/HCPCS: 99024

== ENCOUNTER → 2024-03-15 10:16 | Outpatient (BNVA) | payer MEDICARE, SELFPAY | PROVIDERS: PCP Family Medicine; Visit Provider Internal Medicine | DX: G90.59 Complex regional pain syndrome I of other specified site (principal) | CPT/HCPCS: 99212 ==

== ENCOUNTER 2024-05-23 11:07 | Day surgery (SDC) | payer MEDICARE, SELFPAY ==
[2024-05-21 16:30] VITALS: BMI 22.5
--- NOTE | 2024-05-22 08:55 | P.CONAN_ITS ---
Documented by User: Maxine Rodriguez NP 05/22/24 08:56 HPI - Anesthesia Eval Consult details Narrative: 63yo F for T11-T12 and L1 Dorsal Root Ganglion Stimulator Implant s/p Trial 02/2024 with [facility] [facility] Active Problems Active Problems: All Active Problems Constipation (Acute) Abdominal pain (Acute) Hypothyroidism (Acute) Fatigue (Acute) Complex regional pain syndrome I, unspecified (Acute) Parkinson's disease (Acute) Paresthesias (Acute) Low back pain (Acute) Nerve root and plexus disorder, unspecified (Acute) Traumatic lumbosacral plexopathy (Acute) Altered gait (Acute) Cognitive changes (Acute) Fall (Acute) Tardive dyskinesia (Acute) Tremor (Acute) Migraine without aura (Acute) Past Medical History Medical History (Updated 03/05/24 @ 12:14 by EDDIE Holley) Bipolar disorder Anxiety HLD (hyperlipidemia) Hypothyroidism Depression Memory difficulties Kidney stones GERD (gastroesophageal reflux disease) Family History Family History Father Cancer of adrenal gland High blood pressure High cholesterol Migraines Mother High cholesterol High blood pressure Diabetes Pulmonary fibrosis Family history of problems with anesthesia: No Surgical History Surgical History H/O foot surgery Hx of tonsillectomy History of ankle surgery History of Problems with Anesthesia: No Social History Social History Household Members Other:: lives alone Are you a primary care transition coordinator to a significant other at home: No Do you presently have visiting nurse or other home services: No Unable to assess alcohol history related to: Unknown Alcohol intake: never Patient Tobacco Use Status: Never used Tobacco Use of substances other than those prescribed or required for medical reasons: No Substance Use Type: Marijuana Have you been hit, kicked, punched, or otherwise hurt by someone within the past year? If so, by whom?: No Are you DNR?: No Advance Directives: No Advance Directives Information Provided: Yes Advance Directives on File: No Recently lost weight without trying: No Nutrition Risks: No Nutritional Risk Meds Allergies Allergy/AdvReac Type Severity Reaction Status Date / Time dihydroergotamine Allergy Severe Vomiting Verified 03/05/24 11:43 erythromycin base AdvReac Intermediate n/v Verified 03/05/24 11:43 NSAIDS (Non-Steroidal AdvReac Intermediate Stomach Verified 03/07/24 11:18 Anti-Inflamma Upset reglan AdvReac Severe Unknown Uncoded 03/07/24 11:18 Home Medications ?Medication ?Instructions ?Recorded ?Confirmed ?Last Taken ?Type atorvastatin 80 mg tablet 80 mg PO DAILY 06/11/22 03/05/24 05/11/23 History lamotrigine 200 mg tablet 200 mg PO BID 06/11/22 03/07/24 03/07/24 History levothyroxine 100 mcg tablet 100 mcg PO DAILY 06/11/22 03/07/24 03/07/24 History ondansetron HCl 4 mg tablet mg PO 06/11/22 03/05/24 Unknown History prazosin 2 mg capsule 4 mg PO QPM 06/11/22 03/05/24 Unknown History trazodone 100 mg tablet 400 mg PO BEDTIME 06/11/22 03/05/24 Unknown History multivitamin 1 tab PO DAILY 06/15/22 03/05/24 05/11/23 History zolmitriptan 5 mg tablet (Zomig) 5 mg PO Q2-4H PRN 06/15/22 03/05/24 Unknown History hydroxyzine pamoate 50 mg capsule 50 mg PO BEDTIME 01/24/23 03/05/24 Unknown History (Vistaril) cholecalciferol (vitamin D3) 50 50 mcg PO DAILY 02/23/23 03/05/24 Unknown History mcg (2,000 unit) capsule zolpidem 10 mg tablet 10 mg PO BEDTIME 02/23/23 03/05/24 Unknown History Exam Height,Weight and Vital Signs: Height 6 ft Weight 75.296 kg Assessment and Plan Assessment Anesthesia Assessment: Chart Reviewed Final Anesthetic Review Family History of Problems with Anesthesia: No History of Problems with Anesthesia: No Documented by User: Hyacinth Ayala MD 05/23/24 13:39 [facility] Past Medical History Medical History (Updated 03/05/24 @ 12:14 by EDDIE Holley) Bipolar disorder Anxiety HLD (hyperlipidemia) Hypothyroidism Depression Memory difficulties Kidney stones GERD (gastroesophageal reflux disease) Family History Family History Father Cancer of adrenal gland High blood pressure High cholesterol Migraines Mother High cholesterol High blood pressure Diabetes Pulmonary fibrosis Surgical History Surgical History H/O foot surgery Hx of tonsillectomy History of ankle surgery Social History Social History Household Members Other:: lives alone Are you a primary care transition coordinator to a significant other at home: No Do you presently have visiting nurse or other home services: No Unable to assess alcohol history related to: Unknown Alcohol intake: never Patient Tobacco Use Status: Never used Tobacco Use of substances other than those prescribed or required for medical reasons: No Substance Use Type: Marijuana Have you been hit, kicked, punched, or otherwise hurt by someone within the past year? If so, by whom?: No Are you DNR?: No Advance Directives: No Advance Directives Information Provided: Yes Advance Directives on File: No Recently lost weight without trying: No Nutrition Risks: No Nutritional Risk Meds Allergies Allergy/AdvReac Type Severity Reaction Status Date / Time dihydroergotamine Allergy Severe Vomiting Verified 03/05/24 11:43 erythromycin base AdvReac Intermediate n/v Verified 03/05/24 11:43 NSAIDS (Non-Steroidal AdvReac Intermediate Stomach Verified 03/07/24 11:18 Anti-Inflamma Upset reglan AdvReac Severe Unknown Uncoded 03/07/24 11:18 Home Medications ?Medication ?Instructions ?Recorded ?Confirmed ?Last Taken ?Type atorvastatin 80 mg tablet 80 mg PO DAILY 06/11/22 03/05/24 05/11/23 History lamotrigine 200 mg tablet 200 mg PO BID 06/11/22 03/07/24 03/07/24 History levothyroxine 100 mcg tablet 100 mcg PO DAILY 06/11/22 03/07/24 03/07/24 History ondansetron HCl 4 mg tablet mg PO 06/11/22 03/05/24 Unknown History prazosin 2 mg capsule 4 mg PO QPM 06/11/22 03/05/24 Unknown History trazodone 100 mg tablet 400 mg PO BEDTIME 06/11/22 03/05/24 Unknown History multivitamin 1 tab PO DAILY 06/15/22 03/05/24 05/11/23 History zolmitriptan 5 mg tablet (Zomig) 5 mg PO Q2-4H PRN 06/15/22 03/05/24 Unknown History hydroxyzine pamoate 50 mg capsule 50 mg PO BEDTIME 01/24/23 03/05/24 Unknown History (Vistaril) cholecalciferol (vitamin D3) 50 50 mcg PO DAILY 02/23/23 03/05/24 Unknown History mcg (2,000 unit) capsule zolpidem 10 mg tablet 10 mg PO BEDTIME 02/23/23 03/05/24 Unknown History Exam Airway Mallampati Class: II TM Dist: >3cm Neck ROM: Full Assessment and Plan Assessment Anesthesia Assessment: Anesthesia Plan Discussed Final Anesthetic Review NPO: Yes ASA Class: III Final Preanesthetic Review: No Changes in Pt Med Stat, Meds/Allgs Chart Reviewed, Consent Obtained/Reviewed and Anes Risks/Benef Reviewed Patient Risk: Intermediate Procedure Risk: Low Anesthetic Plan Anesthetic Plan: MAC: Disposition: Standard PACU
[2024-05-23] VITALS (12 sets, daily range): BP systolic 106–180; BP diastolic 67–106; PULSE 56–60; RESP 15–20; TEMP 35.8–36.4; O2SAT 96–100; BMI 22.0
[2024-05-23 13:04] LABS: MRSA Nasal PCR NEGATIVE (Negative); SA Nasal PCR NEGATIVE (Negative)
[2024-05-23] MEDS: Lactated Ringers 1,000 ML 100 ML IVCONT (13:16)
--- NOTE | 2024-05-23 13:39 | MHC.SHP ---
Pre-Procedural Eval Section A - 24 Hr Update-Section A only Date of Service: 05/23/24 The patient is an INPATIENT: No Changes since office visit: Yes Patient answered all questions The patient has been examined within 24 hours of the surgical procedure. The History & Physical has been completed within 30 days and I have reviewed it.: No Section B - Complete if H&P > 30 days Chief Complaint: Complex regional pain syndrome I, unspecified Relevant Family History (Specify if Yes): Yes Relevant Social History: None Present Medications: see Short Stay Collaborative assessment Medical History: No relevant PMH History of Previous Operations: No relevant previous surgery Allergies: Allergies Allergy/AdvReac Type Severity Reaction Status Date / Time dihydroergotamine Allergy Severe Vomiting Verified 03/05/24 11:43 erythromycin base AdvReac Intermediate n/v Verified 03/05/24 11:43 NSAIDS (Non-Steroidal AdvReac Intermediate Stomach Verified 03/07/24 11:18 Anti-Inflamma Upset reglan AdvReac Severe Unknown Uncoded 03/07/24 11:18 Review of Systems Sugical H&P ROS: Negative: Constitution, Cardiovascular and Respiratory Exam Surgical H&P Exam: Normal: HEENT, Normal: Heart and Normal: Lungs Plan Diagnosis/Plan: Unchanged I have reviewed the history and physical and performed a pertinent physical examination on my patient. No changes have occurred unless specified. Time Spent With Patient Time: Total time managing care of this patient today ____ minutes.
--- NOTE | 2024-05-23 13:40 | PM.OP ---
Brief Operative Note Date of Service: 05/23/24 Pre-op diagnosis: CRPS Post-op diagnosis: same Procedure: DRG Stimulator Implant, T10, T11, T12, Right Implants: [employer] DRGS leads & IPG Surgeon: Wenceslao Tinoco MD Anesthesia: MAC Was an [address] Reporter used for this Procedure?: No Estimated blood loss (mL): 50 Pathology: none sent Condition: stable Disposition: PACU
--- NOTE | 2024-05-23 13:42 | W.PM.OPN ---
Operative Note Operative Note Date of Service: 05/23/24 Narrative: Pre-procedure diagnosis: CRPS type 1 Postprocedure diagnosis: Same Dorsal Root Ganglion Stimulator Implant, Right, T10, T11, T12 After obtaining written consent, pre-procedure blood pressure and heart rate were recorded and are in the nursing record for review. A peripheral IV was started. Antibiotics, cefazolin 2 gram, were given intraoperatively. The patient was placed in a prone position.? The patient was sedated by the anesthesiologist. The thoracolumbar area was widely prepped with ChloraPrep, allowed to dry and draped in sterile fashion. Fluoroscopy was used to identify the target interlaminar spaces and appropriate needle insertion sites. The skin and subcutaneous tissue was anesthetized with 0.5% lidocaine mixed with 0.25% ropivacaine. A contralateral, paramedian, antegrade approach was utilized and a 14 great coude needle was advanced towards the target interlaminar space for right T10 foraminal access. The needle tip was directed towards the right T10 foramen. Loss of resistance to air was utilized to access the epidural space in the midline. A prepacked sheath was introduced through the needle. The electrode lead was loaded into the pre packed sheath and advanced just past the tip of the sheath. The sheath and the electrode were then advanced towards the target foramen. The 4 contact lead was then advanced through the foramen so as to have to contact placed between the medial and lateral borders of the target pedicle. Once the correct placement of the lead was confirmed on AP and lateral views, the sheath was withdrawn to the tip of the needle while making sure that the lead did not migrate during the withdrawal. Holding the sheath back, the lead was advanced to the epidural space to create a superior loop of the lead wire above the level of the foramen to the level of the disc above. The sheath was then angled inferiorly and a similar loop was created inferior to the level of the target foramen. A second 4 contact lead was advanced in a similar fashion for the right T11 and T12 foramina. After lead positioning, a pocket for the generator was made in the left flank. With the skin and subcutaneous tissues anesthetized with 0.25% bupivicaine with 1:200,000 epinephrine and 1% lidocaine, a horizontal 2-inch incision was made using a 15 blade and combination of sharp dissection, blunt dissection and electrocautery was used. A pocket was created about half an inch below the skin. The pocket was then irrigated with normal saline containing vancomycin. Hemostasis was attained with electrocautery. We then tunneled the electrodes from the back into the pocket using 14 gauge needles as tunnelers. The electrodes were then connected to the generator. A single Tycron suture was thrown across the floor of the pocket and through the lateral anchor hold of the generator. The needles, sheaths and stylettes were then completely removed under live fluoroscopy. The leads were tunneled from the skin insertion sites to the battery pocket and connected to the IPG. After interrogation with impedance check the generator was placed into the subcutaneous pocket and the anchoring suture tied. Care was taken not to get fluid in the generator connector block. The neurostimulator generator was placed parallel to the skin at a depth of half an inch along for successful telemetry and impedence. The pocket was reirrigated and closed with the generator name facing out. Final electronic analysis was performed to ensure proper functioning. Positioning of the leads were rechecked and confirmed with fluoroscopy and images saved. The pocket was closed with a deep layer of running 2-0 Vicryl sutures, the deep dermal layer with 3-0 Vicryl sutures, simple interrupted and Exofin and Steri-Strips. The needle insertion sites were closed with 3-0 silk. The sites were dressed with op-site dressings over skin puncture and incision sites. The patient tolerated the procedure well. The patient was then flipped back into the supine position, woken up and brought to the PACU in stable condition. Complications: None EBL: 40 mL Time Out: Immediately prior to the procedure, the following was verbally confirmed that there is a signed consent form and that the correct patient, planned procedure, site and side are consistent with documentation and that necessary equipment and/or blood products are available prior to the start of the case.
[2024-05-23] MEDS: fentaNYL citrate/PF 100 MCG/2 ML VIAL 50 MCG IVPUSH ×4 (17:17→18:18)
[2024-05-23] MEDS: oxyCODONE HCl Immed Release 5 MG TABLET PO (18:01)
[2024-05-23] MEDS: Acetaminophen 1,000 MG/100 ML PIGGYBACK 400 MG IV (18:38)
== END 2024-05-23 19:17 | disposition home or self-care (01) ==
PROVIDERS: Registered Nurse Emergency; PCP Family Medicine; Visit Provider Internal Medicine
PROC: (CPT 63685; principal; 2024-05-23 12:40)
DX: G90.50 Complex regional pain syndrome I, unspecified (principal); G54.9 Nerve root and plexus disorder, unspecified; R20.2 Paresthesia of skin; M54.50 Low back pain, unspecified; G20.A1 Parkinson's disease without dyskinesia, without mention of fluctuations; Z79.899 Other long term (current) drug therapy; Z88.6 Allergy status to analgesic agent; Z88.8 Allergy status to other drugs, medicaments and biological substances; Z98.890 Other specified postprocedural states
CPT/HCPCS: 63685; 63650 ×2; 87640; 87641; C1778; C1787; J0131; J0690; J1100; J2003; J2250; J2405; J2704; J2795; J3010; J3370

== ENCOUNTER → 2024-05-23 11:07 | Outpatient (BNV) | payer MEDICARE, SELFPAY | PROVIDERS: PCP Family Medicine; Visit Provider Internal Medicine | DX: G90.50 Complex regional pain syndrome I, unspecified (principal) | CPT/HCPCS: 63650; 63685 ==

== ENCOUNTER 2024-06-01 09:55 | Outpatient (AMB) | payer MEDICARE, SELFPAY ==
--- NOTE | 2024-06-01 09:56 | MHC.OFFVIS ---
Vital Signs 06/01/24 09:57 Height 6 ft Weight 162 lb BMI 22.0 BP 121/62 Blood Pressure Location Lt brachial Position Sitting Respiration 16 Pulse 83 Pulse Source Pulse Oximeter Intake Visit Reasons: S/p T11, T12, and L1 DRG Implant 05/23/24 Allergies dihydroergotamine Allergy (Severe, Verified 06/08/24 10:27) Vomiting erythromycin base Adverse Reaction (Intermediate, Verified 06/08/24 10:27) n/v NSAIDS (Non-Steroidal Anti-Inflamma Adverse Reaction (Intermediate, Verified 06/08/24 10:27) Stomach Upset reglan Adverse Reaction (Severe, Uncoded 06/08/24 10:27) Unknown Medication List - Last Reconciled 06/01/24 by Tash Villeda LPN amitriptyline 50 mg PO BEDTIME 30 days atorvastatin 80 mg PO DAILY cholecalciferol (vitamin D3) 50 mcg PO DAILY donepezil 10 mg PO DAILY 90 days hydroxyzine pamoate (Vistaril) 50 mg PO BEDTIME lactulose 15 mL PO BID PRN 30 days lamotrigine 200 mg PO BID levothyroxine 100 mcg PO DAILY multivitamin 1 tab PO DAILY ondansetron HCl mg PO oxycodone-acetaminophen 5-325 mg 1 tab PO QID PRN oxycodone-acetaminophen 5-325 mg 1 tab PO Q12H PRN prazosin 4 mg PO QPM trazodone 400 mg PO BEDTIME zolmitriptan (Zomig) 5 mg PO Q2-4H PRN zolpidem 10 mg PO BEDTIME 30 days HPI HPI S/p T11, T12, and L1 DRG Implant 05/23/24: Details: 63-year-old female who presents today to the office for a status post [id number] DRG implant. The patient reports moderate into the shell relief on the right side following the procedure. She is reporting good response to therapy with decrease in her right sided flank pain symptoms. She still has some soreness around the IPG incision site. She continues to wear abdominal binder. Her suture was removed about 8 days ago. She inquired about taking shower. Past Procedures: 05/23/24: Dorsal Root Ganglion Stimulator Implant, Right, T10, T11, T12: 03/07/24: Percutaneous Dorsal Root Ganglion Stimulator Trial, RIGHT, T12 and L1: More than 60% relief 10/20/23: Transforaminal epidural steroid injection, right L1 and L2 - no relief 05/11/23: Lumbar nerve root temporary nerve stimulator placement, right L1 - no relief PFSH Medical History (Updated 03/05/24 @ 12:14 by EDDIE Holley) Bipolar disorder Anxiety HLD (hyperlipidemia) Hypothyroidism Depression Memory difficulties Kidney stones GERD (gastroesophageal reflux disease) Surgical History H/O foot surgery Hx of tonsillectomy History of ankle surgery Family History Father Cancer of adrenal gland High blood pressure High cholesterol Migraines Mother High cholesterol High blood pressure Diabetes Pulmonary fibrosis Social History Household Members Other:: lives alone Are you a primary complex care nurse practitioner to a significant other at home: No Do you presently have visiting nurse or other home services: No Unable to assess alcohol history related to: Unknown Alcohol intake: never Patient Tobacco Use Status: Never used Tobacco Substance Use Type: Marijuana Review of Systems Const All systems reviewed & are unremarkable except as noted in HPI and below Physical Exam Vital Signs: Last Vital Signs Pulse 83 06/01/24 09:57 Resp 16 06/01/24 09:57 BP 121/62 06/01/24 09:57 BMI result Body Mass Index 22.0 General: Appears afebrile. Alert and oriented. Mood and affect appropriate. Follows and participates in conversation appropriately. Respiratory effort is unlabored. Able to transition from sit to stand unassisted. Ambulates with bilaterally normal heel strike and toe off. The incision sites are clean, dry and intact. Incisions are well healed. There is some tenderness around the IPG incision site. The steri strips are still in place. Results Reviewed Results Reviewed: No imaging is available for review. Assessment & Plan Assessment & Plan (1) Complex regional pain syndrome I, unspecified: Comment: right torso Code(s): G90.50 - Complex regional pain syndrome I, unspecified Category: Medical Qualifiers: Complex regional pain syndrome affected site: unspecified Qualified Code(s): G90.50 - Complex regional pain syndrome I, unspecified Plan The patient will continue to wear abdominal binder. Patient is cleared to shower. She will follow up next week for final wound check. So far she is reporting good response to therapy with decrease in her right sided flank pain symptoms. Scribed for Dr. Tinoco by Cayden Vera, medical massage therapist, on 06/01/2024. I, Dr. Tinoco, have personally reviewed and agree with the information entered by the scribe. Coding Level of Care Code Est Pt Level 3 (81905) Diagnoses Complex regional pain syndrome type 1, affecting unspecified site G90.50 Complex regional pain syndrome affected site: unspecified
[2024-06-01 09:57] VITALS: BP 121/62; PULSE 83; RESP 16; BMI 22.0
== END 2024-06-01 10:22 | disposition home or self-care (01) ==
PROVIDERS: PCP Family Medicine; Visit Provider Internal Medicine
DX: G90.50 Complex regional pain syndrome I, unspecified (principal)
CPT/HCPCS: 99024

== ENCOUNTER → 2024-06-01 09:55 | Outpatient (BNVA) | payer MEDICARE, SELFPAY | PROVIDERS: PCP Family Medicine; Visit Provider Internal Medicine | DX: G90.50 Complex regional pain syndrome I, unspecified (principal); Z96.82 Presence of neurostimulator | CPT/HCPCS: 99212 ==

== ENCOUNTER 2024-06-08 09:47 | Outpatient (AMB) | payer MEDICARE, SELFPAY ==
--- NOTE | 2024-06-08 10:23 | MHC.OFFVIS ---
Vital Signs 06/08/24 10:26 Height 6 ft Weight 162 lb BMI 22.0 BP 106/61 Blood Pressure Location Lt brachial Position Sitting Respiration 14 Pulse 78 Pulse Source Pulse Oximeter Pulse Oximetry (%) 100 Oxygen Delivery Method Room Air Intake Visit Reasons: S/p DRG Implant 05/23/24 (2nd Visit) Allergies dihydroergotamine Allergy (Severe, Verified 06/25/24 11:03) Vomiting erythromycin base Adverse Reaction (Intermediate, Verified 06/25/24 11:03) n/v NSAIDS (Non-Steroidal Anti-Inflamma Adverse Reaction (Intermediate, Verified 06/25/24 11:03) Stomach Upset reglan Adverse Reaction (Severe, Uncoded 06/25/24 11:03) Unknown Medication List - Last Reconciled 06/08/24 by Tash Villeda LPN amitriptyline 50 mg PO BEDTIME 30 days atorvastatin 80 mg PO DAILY cholecalciferol (vitamin D3) 50 mcg PO DAILY donepezil 10 mg PO DAILY 90 days hydroxyzine pamoate (Vistaril) 50 mg PO BEDTIME lactulose 15 mL PO BID PRN 30 days lamotrigine 200 mg PO BID levothyroxine 100 mcg PO DAILY multivitamin 1 tab PO DAILY ondansetron HCl mg PO oxycodone-acetaminophen 5-325 mg 1 tab PO QID PRN oxycodone-acetaminophen 5-325 mg 1 tab PO Q12H PRN prazosin 4 mg PO QPM trazodone 400 mg PO BEDTIME zolmitriptan (Zomig) 5 mg PO Q2-4H PRN zolpidem 10 mg PO BEDTIME 30 days HPI HPI S/p DRG Implant 05/23/24 (2nd Visit): Details: 63-year-old female who presents today to the office for a status post DRG implant. She has been experiencing pain and mild swelling at the site since the procedure. She denies picking on the implant site. She has been showering every other day. She has tolerated Augmentin in the past without any side effects. She has tried gabapentin for five years in the past. She is not sure about taking Lyrica in the past.? Past Procedures: 05/23/24: Dorsal Root Ganglion Stimulator Implant, Right, T10, T11, T12: Has not turned on the device yet 03/07/24: Percutaneous Dorsal Root Ganglion Stimulator Trial, RIGHT, T12 and L1: More than 50 % relief. 10/20/23: Transforaminal epidural steroid injection, right L1 and L2 - no relief 05/11/23: Lumbar nerve root temporary nerve stimulator placement, right L1 - no relief PFSH Medical History (Updated 07/03/24 @ 14:17 by Wenceslao Tinoco MD) Bipolar disorder Anxiety HLD (hyperlipidemia) Hypothyroidism Depression Memory difficulties Kidney stones GERD (gastroesophageal reflux disease) Surgical History H/O foot surgery Hx of tonsillectomy History of ankle surgery Family History Father Cancer of adrenal gland High blood pressure High cholesterol Migraines Mother High cholesterol High blood pressure Diabetes Pulmonary fibrosis Social History Household Members Other:: lives alone Are you a primary transitional care nurse to a significant other at home: No Do you presently have visiting nurse or other home services: No Unable to assess alcohol history related to: Unknown Alcohol intake: never Patient Tobacco Use Status: Never used Tobacco Substance Use Type: Marijuana Review of Systems Const All systems reviewed & are unremarkable except as noted in HPI and below Physical Exam Vital Signs: Last Vital Signs Pulse 78 06/08/24 10:26 Resp 14 06/08/24 10:26 BP 106/61 06/08/24 10:26 Pulse Ox 100 06/08/24 10:26 Oxygen Delivery Method Room Air 06/08/24 10:26 BMI result Body Mass Index 22.0 General: Appears afebrile. Alert and oriented. Mood and affect appropriate. Follows and participates in conversation appropriately. Respiratory effort is unlabored. Able to transition from sit to stand unassisted. Ambulates with bilaterally normal heel strike and toe off. She has exquisite tenderness over the lead insertion site as well as over the IPG site. No erythema or discharge noted.? Results Reviewed Results Reviewed: No imaging is available for review. Assessment & Plan Assessment & Plan (1) Complex regional pain syndrome I, unspecified: Comment: right torso status post DRG stimulation implant Code(s): G90.50 - Complex regional pain syndrome I, unspecified Category: Medical Qualifiers: Complex regional pain syndrome affected site: unspecified Qualified Code(s): G90.50 - Complex regional pain syndrome I, unspecified Plan I recommended a course of Augmentin for seven days to treat any underlying infection that has not manifested itself, given her exquisite tenderness and slight swelling over the lead insertion site as well as over the IPG site. I also recommended resuming gabapentin to help with the increased sensitivity to pain symptoms. She will return to the clinic in two weeks to follow up and reassessment.? Scribed for Dr. Tinoco by Cayden Vera, medical information officer, on 06/08/2024. I, Dr. Tinoco, have personally reviewed and agree with the information entered by the scribe. Medications: New amoxicillin-pot clavulanate 875-125 mg 1 tab PO BID 14 tabs 0RF gabapentin 300 mg PO TID 90 caps 0RF Coding Level of Care Code Est Pt Level 3 (47322) Diagnoses Complex regional pain syndrome type 1, affecting unspecified site G90.50 Complex regional pain syndrome affected site: unspecified
[2024-06-08 10:26] VITALS: BP 106/61; PULSE 78; RESP 14; O2SAT 100; BMI 22.0
== END 2024-06-08 10:47 | disposition home or self-care (01) ==
PROVIDERS: PCP Family Medicine; Visit Provider Internal Medicine
DX: G90.50 Complex regional pain syndrome I, unspecified (principal)
CPT/HCPCS: 99213

== ENCOUNTER → 2024-06-08 09:47 | Outpatient (BNVA) | payer MEDICARE, SELFPAY | PROVIDERS: PCP Family Medicine; Visit Provider Internal Medicine | DX: G90.50 Complex regional pain syndrome I, unspecified (principal) | CPT/HCPCS: 99212 ==

== ENCOUNTER 2024-06-25 10:42 | Outpatient (AMB) | payer MEDICARE, SELFPAY ==
--- NOTE | 2024-06-25 11:02 | MHC.OFFVIS ---
Vital Signs 06/25/24 11:03 Height 6 ft Weight 162 lb BMI 22.0 BP 108/62 Blood Pressure Location Rt brachial Position Sitting Respiration 14 Pulse 80 Pulse Source Pulse Oximeter Intake Visit Reasons: 2 Week Follow Up Allergies dihydroergotamine Allergy (Severe, Verified 06/25/24 11:03) Vomiting erythromycin base Adverse Reaction (Intermediate, Verified 06/25/24 11:03) n/v NSAIDS (Non-Steroidal Anti-Inflamma Adverse Reaction (Intermediate, Verified 06/25/24 11:03) Stomach Upset reglan Adverse Reaction (Severe, Uncoded 06/25/24 11:03) Unknown Medication List - Last Reconciled 06/25/24 by Tash Villeda LPN amitriptyline 50 mg PO BEDTIME 30 days atorvastatin 80 mg PO DAILY donepezil 10 mg PO DAILY 90 days gabapentin 300 mg PO TID hydroxyzine pamoate (Vistaril) 50 mg PO BEDTIME lamotrigine 200 mg PO BID levothyroxine 100 mcg PO DAILY multivitamin 1 tab PO DAILY ondansetron HCl mg PO prazosin 4 mg PO QPM trazodone 400 mg PO BEDTIME zolmitriptan (Zomig) 5 mg PO Q2-4H PRN zolpidem 10 mg PO BEDTIME 30 days HPI HPI 2 Week Follow Up: Details: 63-year-old female who presents today to the office for two week follow up. The patient reports 50% relief following the procedure. She noticed some positive response from the implant. She still has some soreness at the incision sites. She has completed the 7 days course of Augmentin. She is not using lidocaine patches. She has not received the remote of the device. She is still taking gabapentin 300 mg TID for her pain. She inquired about bending and twisting movements and driving. She cautiously drives her [employer] car and is not yet able to rest her back against the seat, which she finds painful. Past Procedures: 05/23/24: Dorsal Root Ganglion Stimulator Implant, Right, T10, T11, T12: 50% relief. 03/07/24: Percutaneous Dorsal Root Ganglion Stimulator Trial, RIGHT, T12 and L1: 60% relief. 10/20/23: Transforaminal epidural steroid injection, right L1 and L2 - no relief 05/11/23: Lumbar nerve root temporary nerve stimulator placement, right L1 - no relief [facility] Medical History (Updated 07/03/24 @ 14:17 by Wenceslao Tinoco MD) Bipolar disorder Anxiety HLD (hyperlipidemia) Hypothyroidism Depression Memory difficulties Kidney stones GERD (gastroesophageal reflux disease) Surgical History H/O foot surgery Hx of tonsillectomy History of ankle surgery Family History Father Cancer of adrenal gland High blood pressure High cholesterol Migraines Mother High cholesterol High blood pressure Diabetes Pulmonary fibrosis Social History Household Members Other:: lives alone Are you a primary rn intensive care unit to a significant other at home: No Do you presently have visiting nurse or other home services: No Unable to assess alcohol history related to: Unknown Alcohol intake: never Patient Tobacco Use Status: Never used Tobacco Substance Use Type: Marijuana Review of Systems Const All systems reviewed & are unremarkable except as noted in HPI and below Physical Exam Vital Signs: Last Vital Signs Pulse 80 06/25/24 11:03 Resp 14 06/25/24 11:03 BP 108/62 06/25/24 11:03 BMI result Body Mass Index 22.0 General: Appears afebrile. Alert and oriented. Mood and affect appropriate. Follows and participates in conversation appropriately. Respiratory effort is unlabored. Able to transition from sit to stand unassisted. Ambulates with bilaterally normal heel strike and toe off. The exquisite tenderness over the bottom lead insertion site is still present but the swelling has improved. Results Reviewed Results Reviewed: No imaging is available for review. Assessment & Plan Assessment & Plan (1) Complex regional pain syndrome I, unspecified: Comment: right torso status post DRG stimulation implant Code(s): G90.50 - Complex regional pain syndrome I, unspecified Category: Medical Qualifiers: Complex regional pain syndrome affected site: unspecified Qualified Code(s): G90.50 - Complex regional pain syndrome I, unspecified Plan I prescribed lidocaine patches 5% to be applied directly over the sensitive portion of the incision sites. I also directed her to restart the stimulator. She will follow up in one month via the portal to report her progress. Scribed for Dr. Tinoco by Cayden Vera, medical anthropology director, on 06/25/2024. I, Dr. Tinoco, have personally reviewed and agree with the information entered by the scribe. Medications: New lidocaine 5% leave on most painful area for up to 12 hrs 1 patch topical DAILY 30 ea 11RF Coding Level of Care Code Est Pt Level 3 (32096) Diagnoses Complex regional pain syndrome type 1, affecting unspecified site G90.50 Complex regional pain syndrome affected site: unspecified
[2024-06-25 11:03] VITALS: BP 108/62; PULSE 80; RESP 14; BMI 22.0
== END 2024-06-25 11:31 | disposition home or self-care (01) ==
LOC: HO.PMC 10:43
PROVIDERS: PCP Family Medicine; Visit Provider Internal Medicine
DX: G90.50 Complex regional pain syndrome I, unspecified (principal)
CPT/HCPCS: 99213

== ENCOUNTER → 2024-06-25 10:42 | Outpatient (BNVA) | payer MEDICARE, SELFPAY | PROVIDERS: PCP Family Medicine; Visit Provider Internal Medicine | DX: G90.50 Complex regional pain syndrome I, unspecified (principal); Z96.82 Presence of neurostimulator | CPT/HCPCS: 99212 ==

== ENCOUNTER 2024-07-25 09:01 | Outpatient (AMB) | payer MEDICARE, SELFPAY ==
--- NOTE | 2024-07-25 09:06 | A.OFFVIS_ITS ---
Vital Signs 07/25/24 09:08 Height 6 ft Weight 163 lb BMI 22.1 BP 111/54 L Blood Pressure Location Lt brachial Position Sitting Respiration 16 Pulse 69 Pulse Source Pulse Oximeter Intake Visit Reasons: spine stimulator issues Allergies dihydroergotamine Allergy (Severe, Verified 07/25/24 09:10) Vomiting erythromycin base Adverse Reaction (Intermediate, Verified 07/25/24 09:10) n/v NSAIDS (Non-Steroidal Anti-Inflamma Adverse Reaction (Intermediate, Verified 07/25/24 09:10) Stomach Upset reglan Adverse Reaction (Severe, Uncoded 07/25/24 09:10) Unknown Medication List - Last Reconciled 07/25/24 by Tash Villeda LPN amitriptyline 50 mg PO BEDTIME 30 days atorvastatin 80 mg PO DAILY donepezil 10 mg PO DAILY 90 days gabapentin 300 mg PO TID hydroxyzine pamoate (Vistaril) 50 mg PO BEDTIME lamotrigine 200 mg PO BID levothyroxine 100 mcg PO DAILY lidocaine 5% 1 patch topical DAILY multivitamin 1 tab PO DAILY ondansetron HCl mg PO prazosin 4 mg PO QPM trazodone 400 mg PO BEDTIME zolmitriptan (Zomig) 5 mg PO Q2-4H PRN zolpidem 10 mg PO BEDTIME 30 days HPI HPI spine stimulator issues: Details: 64-year-old female who presents to the office today for spine stimulator issue. She states she spoke to Edward 3 weeks ago, and the program was replaced. She reports paresthesia sensation at the incision site. She is not able to turn it up. She had the device setting at high as 7 for 2 days without much benefit so she turned down to 3. She is inquiring if she can switch to different program. She is inquiring the difference between neuropathic pain, nociceptive, and neuroplasticity. She is requesting to have her parking services form renewed. Past Procedures: 05/23/24: Dorsal Root Ganglion Stimulator Implant, Right, T10, T11, T12: 50% relief. 03/07/24: Percutaneous Dorsal Root Ganglion Stimulator Trial, RIGHT, T12 and L1: 60% relief. 10/20/23: Transforaminal epidural steroid injection, right L1 and L2 - no relief 05/11/23: Lumbar nerve root temporary nerve stimulator placement, right L1 - no relief [facility] Medical History (Updated 07/03/24 @ 14:17 by Wenceslao Tinoco MD) Bipolar disorder Anxiety HLD (hyperlipidemia) Hypothyroidism Depression Memory difficulties Kidney stones GERD (gastroesophageal reflux disease) Surgical History H/O foot surgery Hx of tonsillectomy History of ankle surgery Family History Father Cancer of adrenal gland High blood pressure High cholesterol Migraines Mother High cholesterol High blood pressure Diabetes Pulmonary fibrosis Social History Household Members Other:: lives alone Are you a primary transition of care specialist to a significant other at home: No Do you presently have visiting nurse or other home services: No Unable to assess alcohol history related to: Unknown Alcohol intake: never Patient Tobacco Use Status: Never used Tobacco Substance Use Type: Marijuana Review of Systems Const All systems reviewed & are unremarkable except as noted in HPI and below Physical Exam Vital Signs: Last Vital Signs Pulse 69 07/25/24 09:08 Resp 16 07/25/24 09:08 BP 111/54 L 07/25/24 09:08 BMI result Body Mass Index 22.1 General: Appears afebrile. Alert and oriented. Mood and affect appropriate. Follows and participates in conversation appropriately. Respiratory effort is unlabored. Able to transition from sit to stand unassisted. Ambulates with bilaterally normal heel strike and toe off. Results Reviewed Results Reviewed: Ordered an x-ray of the lumbar spine that showed adequate lead positioning for her T10 and T11 electrodes. The T12 electrode has migrated slightly but the distal most contact is still an inappropriate 6 o'clock position under the pedicle. Assessment & Plan Assessment & Plan (1) Complex regional pain syndrome I, unspecified: Comment: right torso status post DRG stimulation implant Code(s): G90.50 - Complex regional pain syndrome I, unspecified Category: Medical Qualifiers: Complex regional pain syndrome affected site: unspecified Qualified Code(s): G90.50 - Complex regional pain syndrome I, unspecified Plan Incisions are intact. No redness, no pathological discharge, no signs of infection noted. I ordered an x-ray of the lumbar spine that showed lead positioning as indicated above. I discussed her case with the [employer] hostess party sales representative who agreed that we need to reprogrammed the device based on the current electrode positioning. He will reach out to her and set up either a remote or in-person encounter for reprogramming. We will reassess her pain condition after the reprogramming. Temporary disability parking permit was signed for the patient during the visit today. Scribed for Dr. Tinoco by Nishant curator medical museum, on 07/25/2024. I, Dr. Tinoco, have personally reviewed and agree with the information entered by the scribe. Orders: Orders XR lumbar spine 1V Today G90.50 - Complex regional pain syndrome I, unspecified Coding Level of Care Code Est Pt Level 4 (98679) Diagnoses Complex regional pain syndrome type 1, affecting unspecified site G90.50 Complex regional pain syndrome affected site: unspecified
[2024-07-25 09:08] VITALS: BP 111/54; PULSE 69; RESP 16; BMI 22.1
--- OUTSIDE RECORDS SUMMARY | 2024-07-31 16:41 | XMS_ITS | Continuity of Care Document ---
Author Organization [facility] Address [address] [address] Phone Care Team Providers Care Embedder Name Role Phone [facility] Unavailable Humera vailable Procedures Procedure Date REVISION OF UPPER EYELID REVISION OF UPPER EYELID REMOVE EYELID LESION Advance Directives Directive Yes / No Effective Date File Name No Information Encounters Encounter Description Practice Location Reason(s) For Visit Diagnoses Date Provider Providers Copied on Encounter [facility], [address] [place] [address], [id number], tel:[phone] [facility] No Information [facility]. [address] [place] [address], [id number]. tel:[phone] Referring Provider: Alexandrea bethea MD, [address] [place] [address], [id number]. tel:[phone] Family History Family Member Type Diagnosis Age At Onset No Information Payers Payer name Insurance type Covered libertarian ID Authoriza tion(s) [facility] CI [id number] Social History Type Description Quantity Date Captured [...]
== END 2024-07-25 09:40 | disposition home or self-care (01) ==
PROVIDERS: PCP Family Medicine; Visit Provider Internal Medicine
DX: G90.50 Complex regional pain syndrome I, unspecified (principal)
CPT/HCPCS: 99214

== ENCOUNTER 2024-07-25 09:01 | Outpatient (REF) | payer MEDICARE, SELFPAY ==
--- NOTE | ~2024-07-25 | XR_ITS ---
EXAMINATION: XR LUMBOSACRAL SPINE CLINICAL INFORMATION: G90.50 - Complex regional pain syndrome I, unspecified COMPARISON: 1 view TECHNIQUE: Three views of the lumbosacral spine. FINDINGS// XR/XR lumbar spine 1V IMPRESSION: Stimulator pack projected over the left lumbar paraspinal region. There are 3 radiopaque curvilinear wires, the tip projected along the right side of the of the T12,, T11, and the T10 vertebral bodies. Calcific density projected over the left upper quadrant, of indeterminate etiology. Nonobstructive bowel gas pattern. Electronically signed by: Marc Chadwick MD 07/25/2024 01:19 PM [facility]
--- OUTSIDE RECORDS SUMMARY | 2024-07-31 17:18 | XMS_ITS | Continuity of Care Document ---
Author Organization [facility] Address [address] [address] Phone Care Team Providers Care Bankman Name Role Phone [facility] Unavailable Humera vailable Procedures Procedure Date REVISION OF UPPER EYELID REVISION OF UPPER EYELID REMOVE EYELID LESION Advance Directives Directive Yes / No Effective Date File Name No Information Encounters Encounter Description Practice Location Reason(s) For Visit Diagnoses Date Provider Providers Copied on Encounter [facility], [address] [place] [address], [id number], tel:[phone] [facility] No Information [facility]. [address] [place] [address], [id number]. tel:[phone] Referring Provider: Alexandrea bethea MD, [address] [place] [address], [id number]. tel:[phone] Family History Family Member Type Diagnosis Age At Onset No Information Payers Payer name Insurance type Covered libertarian ID Authoriza tion(s) [facility] CI [id number] Social History Type Description Quantity Date Captured [...]
== END 2024-07-25 09:02 | disposition home or self-care (01) ==
LOC: HO.XRAY 09:01
PROVIDERS: PCP Family Medicine; Visit Provider Internal Medicine
DX: G90.50 Complex regional pain syndrome I, unspecified (principal)
CPT/HCPCS: 72020; 99212

== ENCOUNTER → 2024-07-31 10:15 | Outpatient (BNVA) | payer MEDICARE, SELFPAY | PROVIDERS: PCP Family Medicine; Visit Provider Internal Medicine ==

== ENCOUNTER 2024-08-29 09:59 | Outpatient (AMB) | payer MEDICARE, SELFPAY ==
--- NOTE | 2024-08-29 10:04 | A.OFFVIS_ITS ---
Vital Signs 08/29/24 10:05 Height 6 ft Weight 163 lb BMI 22.1 BP 116/56 L Blood Pressure Location Lt brachial Position Sitting Respiration 15 Pulse 70 Pulse Source Pulse Oximeter Pulse Oximetry (%) 100 Oxygen Delivery Method Room Air Intake Visit Reasons: Follow Up (Pt Request) Allergies dihydroergotamine Allergy (Severe, Verified 08/29/24 10:06) Vomiting erythromycin base Adverse Reaction (Intermediate, Verified 08/29/24 10:06) n/v NSAIDS (Non-Steroidal Anti-Inflamma Adverse Reaction (Intermediate, Verified 08/29/24 10:06) Stomach Upset reglan Adverse Reaction (Severe, Uncoded 08/29/24 10:06) Unknown Medication List - Last Reconciled 08/29/24 by Tash Villeda LPN amitriptyline 50 mg PO BEDTIME 30 days atorvastatin 80 mg PO DAILY donepezil 10 mg PO DAILY 90 days gabapentin 300 mg PO TID hydroxyzine pamoate (Vistaril) 50 mg PO BEDTIME lamotrigine 200 mg PO BID levothyroxine 100 mcg PO DAILY lidocaine 5% 1 patch topical DAILY multivitamin 1 tab PO DAILY ondansetron HCl mg PO prazosin 4 mg PO QPM trazodone 400 mg PO BEDTIME zolmitriptan (Zomig) 5 mg PO Q2-4H PRN zolpidem 10 mg PO BEDTIME 30 days HPI HPI Follow Up (Pt Request): Details: Olivia is here for follow-up with questions regarding her DRG stimulation device. Overall she feels slightly improved. She continues to have some sensitivity and is still unable to fully relax in her car seat but feels that her symptoms have started to improve. She is interested in trialing memantine for its anti neuropathic pain properties. She also has questions about other possible alternatives for neuropathic pain. She also had questions regarding physical activity and how to guide herself for her engagements based on her symptoms. On exam today: Appears afebrile. Alert and oriented. Mood and affect appropriate. Follows and participates in conversation appropriately. Respiratory effort is unlabored. Able to transition from sit to stand unassisted. Ambulates with bilaterally normal heel strike and toe off. Able to stand and walk on toes and heels. Sensitivity to touch has improved on the right side. Sensitivity to touch has also improved on the left side. She continues to be tender at the bottom lead insertion site. IPG site is relatively unremarkable. [facility] Medical History (Updated 07/03/24 @ 14:17 by Wenceslao Tinoco MD) Bipolar disorder Anxiety HLD (hyperlipidemia) Hypothyroidism Depression Memory difficulties Kidney stones GERD (gastroesophageal reflux disease) Surgical History H/O foot surgery Hx of tonsillectomy History of ankle surgery Family History Father Cancer of adrenal gland High blood pressure High cholesterol Migraines Mother High cholesterol High blood pressure Diabetes Pulmonary fibrosis Social History Household Members Other:: lives alone Are you a primary animal care technician to a significant other at home: No Do you presently have visiting nurse or other home services: No Unable to assess alcohol history related to: Unknown Alcohol intake: never Patient Tobacco Use Status: Never used Tobacco Substance Use Type: Marijuana Physical Exam Vital Signs: Last Vital Signs Pulse 70 08/29/24 10:05 Resp 15 08/29/24 10:05 BP 116/56 L 08/29/24 10:05 Pulse Ox 100 08/29/24 10:05 Oxygen Delivery Method Room Air 08/29/24 10:05 BMI result Body Mass Index 22.1 Assessment & Plan Assessment & Plan (1) Complex regional pain syndrome I, unspecified: Comment: right torso status post DRG stimulation implant Code(s): G90.50 - Complex regional pain syndrome I, unspecified Category: Medical Qualifiers: Complex regional pain syndrome affected site: unspecified Qualified Code(s): G90.50 - Complex regional pain syndrome I, unspecified Plan All questions were answered to the patient's satisfaction. I recommended that she let her body guide her in terms of tolerable levels of activity. I agreed wi th trialing different neuropathic medications to see if that might help. We will start with memantine low dose at 5 mg daily and up titrate it to 5 mg b.i.d. if no side effects are noted. We also discussed role of low-dose naltrexone in neuropathic pain management and we may trial that if memantine trial is not successful. I encouraged her to continue titrating her device settings and reach out to [place] sales donor recruitment representative if she needs help adjusting her programs. She also had questions about the role of immunotherapy, chronic prednisone and ketamine infusion therapy in her pain syndrome. We discussed the role of ketamine and the fact that it is not covered by insurance. I do feel that if she is able to afford she may benefit from a trial of intravenous ketamine. Patient expressed understanding. Medications: New memantine 5 mg PO BID 60 tabs 0RF Coding Level of Care Code Est Pt Level 4 (87448) Diagnoses Complex regional pain syndrome type 1, affecting unspecified site G90.50 Complex regional pain syndrome affected site: unspecified
[2024-08-29 10:05] VITALS: BP 116/56; PULSE 70; RESP 15; O2SAT 100; BMI 22.1
== END 2024-08-29 10:37 | disposition home or self-care (01) ==
PROVIDERS: PCP Family Medicine; Visit Provider Internal Medicine
DX: G90.50 Complex regional pain syndrome I, unspecified (principal)
CPT/HCPCS: 99214

== ENCOUNTER → 2024-08-29 09:59 | Outpatient (BNVA) | payer MEDICARE, SELFPAY | PROVIDERS: PCP Family Medicine; Visit Provider Internal Medicine | DX: G90.50 Complex regional pain syndrome I, unspecified (principal) | CPT/HCPCS: 99212 ==

== ENCOUNTER 2024-09-10 14:28 | Outpatient (AMB) | payer MEDICARE, SELFPAY ==
[2024-09-10 14:29] VITALS: BP 122/76; PULSE 71; O2SAT 96; BMI 23.4
--- NOTE | 2024-09-10 14:29 | A.OFFVIS_ITS ---
Vital Signs 09/10/24 14:29 Height 6 ft Weight 172 lb 4 oz BMI 23.4 BP 122/76 Blood Pressure Location Rt brachial Position Sitting Pulse 71 Pulse Oximetry (%) 96 Oxygen Delivery Method Room Air Intake Visit Reasons: Follow up Allergies dihydroergotamine Allergy (Severe, Verified 09/10/24 14:33) Vomiting erythromycin base Adverse Reaction (Intermediate, Verified 09/10/24 14:33) n/v NSAIDS (Non-Steroidal Anti-Inflamma Adverse Reaction (Intermediate, Verified 09/10/24 14:33) Stomach Upset reglan Adverse Reaction (Severe, Uncoded 08/29/24 10:06) Unknown HPI Comments Details: 64-yr-old female presents for f/u Parkinson's, TD, and migraine. Pt underwent spinal cord pain management stimulater on May 23, 2024. Pt states it has helped some, but she does continue to have bothersome back pain. She is also recovering from a chest cold over the last few weeks (negative for covid/RSV/flu)- currently on doxycycline, tesselon pearls, and prednisone. She stopped the CD-LD IR 25-100mg shortly after her last visit here- as she was having side effects and the tremor is not overly bothersome. Now noticing a new tremor in her RUE rest tremor w/ some kinetic tremor when holding a cup, rubbing her right thumb along her 3rd finger, and fingers are posturing some. Her writing is worse- shaky, and she is intentionally trying to write bigger. Feels an internal shake- but not like an internal shake. Her bilateral toe movements- tapping, never stops- even in the shower. Her facial movements seem stable. Denies orthostatic lightheadedness. She is walking a bit more- now walking with her dog. 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 Denies dysphagia. Denies stiffness. Voiding slowly in the am and evening. Denies constipation. States memory is ok. Her mood have been stable. Denies hallucinations. She has been waking up with a migraine about 3 mornings a week, which respond WELL to zomig and zofran. [facility] Medical History Bipolar disorder Anxiety HLD (hyperlipidemia) Hypothyroidism Depression Memory difficulties Kidney stones GERD (gastroesophageal reflux disease) Surgical History History of back surgery H/O foot surgery Hx of tonsillectomy History of ankle surgery Family History Father Cancer of adrenal gland High blood pressure High cholesterol Migraines Mother High cholesterol High blood pressure Diabetes Pulmonary fibrosis Social History Household Members Other:: lives alone Are you a primary child daycare worker to a significant other at home: No Do you presently have visiting nurse or other home services: No Unable to assess alcohol history related to: Unknown Alcohol intake: never Patient Tobacco Use Status: Never used Tobacco Substance Use Type: Marijuana Physical Exam Vital Signs: Last Vital Signs Pulse 71 09/10/24 14:29 BP 122/76 09/10/24 14:29 Pulse Ox 96 09/10/24 14:29 Oxygen Delivery Method Room Air 09/10/24 14:29 BMI result Body Mass Index 23.4 Const General: cooperative and no acute distress Resp Effort & Inspection: normal respiratory effort and able to speak in complete sentences GI Palpation (GI): Tenderness to palpation present (GI) in the epigastrum and periumbilically (more right sided) Auscultation: Hypoactive bowel sounds present (in all quadrants) Neuro Other: Alert and oriented x3 Involuntary oral-buccal and nose movements. Very rare- involuntary L > R hand flexion/extension- decreased Toes- L > R tapping toes. BUE rest tremor w/ mild hand posturing in flexion. Writing sample- very mild tremor, slight micrographia. FFM- slightly decreased Foot taps- slightly decreased, more son on the right. Stands easily, mild antalgic gait with right high step, overall steady gait. Pleasant affect Assessment & Plan Assessment & Plan (1) Parkinson's disease without dyskinesia: Code(s): G20.A1 - Parkinson's disease without dyskinesia, without mention of fluctuations Category: Medical (2) Tardive dyskinesia: Comment: Not related to levodopa use. Previous history of Depakote use. Chronic lamotrigine use. Denies history of antipsychotic tx. Code(s): G24.01 - Drug induced subacute dyskinesia Category: Medical (3) Migraine without aura: Code(s): G43.009 - Migraine without aura, not intractable, without status migrainosus Category: Medical (4) Constipation: Comment: Improved Code(s): K59.00 - Constipation, unspecified Category: Medical Plan Patient may continue to hold carbidopa levodopa. We will check labs for common etiologies of increasing tremor. Continue to work with pain management, and to slowly increase physical activity as tolerated. Continue her singing lessons. If needed, patient could try low-dose propranolol prior to any recital performance is to reduce risk for worsening anxiety and tremor. Information shared on the [employer] site, which is good resource to learn more about adaptive equipment for tremor. Consider referral to urology if urinary s/s persists. Future considerations: Trialing a long-acting CD-LD formulation, such as CD-LD ER, Rymarcelry. For acute migraine treatment: Continue Zomig 5 mg at onset of migraine, may repeat x1. Max 10 mg per day. Continue ondansetron 4 mg q.4 hours p.r.n. N/C. Previous acute medication use: Sumatriptan po/inj- stopped working. Took 3 doses of Ubrelvy- 100mg- ineffective.. For headache prevention medication: Continue Amitriptyline 50mg qhs- may help CRPS s/s as well. Previous preventative medication use: Had been on Botox for approx 5 yrs, but this stopped working. Amitriptyline, Topiramte, Propranolol, Depakote- stopped working. Emgality- was effective (changed only d/t insurance). Aimovig 140mg sc q month- previously helpful, patient stopped when her migraine burden decreased. Will follow-up upon review of above and patient to follow-up in clinic in 6 months or sooner prn. Orders: Orders Lamotrigine Lamictal Today E03.9 - Hypothyroidism, unspecified, E55.9 - Vitamin D deficiency, unspecified, R20.2 - Paresthesia of skin, R53.83 - Other fatigue TSH reflex Free T4 Today E03.9 - Hypothyroidism, unspecified, E55.9 - Vitamin D deficiency, unspecified, R20.2 - Paresthesia of skin, R53.83 - Other fatigue Vitamin D 25-OH (D2 and D3) Today E03.9 - Hypothyroidism, unspecified, E55.9 - Vitamin D deficiency, unspecified, R20.2 - Paresthesia of skin, R53.83 - Other fatigue Magnesium Today E03.9 - Hypothyroidism, unspecified, E55.9 - Vitamin D deficiency, unspecified, R20.2 - Paresthesia of skin, R53.83 - Other fatigue Complete Blood Count Auto Diff Today E03.9 - Hypothyroidism, unspecified, E55.9 - Vitamin D deficiency, unspecified, R20.2 - Paresthesia of skin, R53.83 - Other fatigue Comprehensive Met. Panel Today E03.9 - Hypothyroidism, unspecified, E55.9 - Vitamin D deficiency, unspecified, R20.2 - Paresthesia of skin, R53.83 - Other fatigue Vitamin B12 and Folate Today E03.9 - Hypothyroidism, unspecified, E55.9 - Vitamin D deficiency, unspecified, R20.2 - Paresthesia of skin, R53.83 - Other fatigue Medications: Changed From ondansetron HCl PO To ondansetron HCl 4 mg PO Q4H PRN 30 tabs 6RF nausea and vomiting 30 days From zolmitriptan (Zomig) do not exceed 2 doses per 24 hrs 5 mg PO Q2-4H PRN To zolmitriptan (Zomig) do not exceed 2 doses per 24 hrs 5 mg PO Q2-4H PRN 12 tabs 6RF migraine headache 30 days Coding Level of Care Code Est Pt Level 4 (98184) Diagnoses Parkinson's disease without dyskinesia G20.A1 Tardive dyskinesia G24.01 Migraine without aura G43.009 Constipation K59.00
== END 2024-09-10 15:39 | disposition home or self-care (01) ==
PROVIDERS: PCP Family Medicine; Visit Provider Nurse Practitioner Family
DX: G20.A1 Parkinson's disease without dyskinesia, without mention of fluctuations (principal); G24.01 Drug induced subacute dyskinesia; G43.009 Migraine without aura, not intractable, without status migrainosus; K59.00 Constipation, unspecified
CPT/HCPCS: 99214

== ENCOUNTER → 2024-09-10 14:28 | Outpatient (BNVA) | payer MEDICARE, SELFPAY | PROVIDERS: PCP Family Medicine; Visit Provider Nurse Practitioner Family | DX: G20.A1 Parkinson's disease without dyskinesia, without mention of fluctuations (principal); G43.909 Migraine, unspecified, not intractable, without status migrainosus; G24.01 Drug induced subacute dyskinesia; K59.00 Constipation, unspecified; E03.9 Hypothyroidism, unspecified; E55.9 Vitamin D deficiency, unspecified; R20.2 Paresthesia of skin; R53.83 Other fatigue | CPT/HCPCS: 99212 ==

== ENCOUNTER 2024-09-14 10:37 | Outpatient (REF) | payer MEDICARE, SELFPAY ==
[2024-09-14 10:56] LABS: MANUAL DIFF FLAG NO
[2024-09-14 11:07] LABS: Basophils Percent Auto 0.5 % (0-2); Eosinophils Absolute Auto 0.1 X10*3/uL (0.0-0.4); Eosinophils Percent Auto 1.5 % (0-4); Hematocrit 45.6 % (37.0-47.0); Hemoglobin 15.1 g/dl (12.0-16.0); Imm Gran Abs Auto 0.01 X10*3/uL (0.00-0.03); Imm Gran Pct Auto 0.2 % (0.0-0.4); Lymphocytes Absolute Auto 2.4 X10*3/uL (1.2-4.9); Lymphocytes Percent Auto 41.3 % (20-40); Mean Corpuscular HGB Conc 33.1 g/dl (31.0-35.0); Mean Corpuscular Hemoglobin 30.8 pg (27.0-33.0); Mean Corpuscular Volume 92.9 fL (80.0-98.0); Mean Platelet Volume 8.7 fL (9.4-12.3); Monocytes Absolute Auto 0.5 X10*3/uL (0.1-1.2); Monocytes Percent Auto 7.7 % (2-11); Neutrophils Absolute Auto 2.8 x10*3/uL (2.0-8.3); Neutrophils Percent Auto 48.8 % (45-73); Platelet Count 308 X10*3/uL (160-400); Red Blood Count 4.91 X10*6/uL (4.20-5.50); Red Cell Distribution Width 12.6 % (11.0-16.0); White Blood Count 5.8 X10*3/uL (4.8-10.8)
--- OUTSIDE RECORDS SUMMARY | 2024-09-14 12:08 | XMS_ITS ---
Author Organization [facility] Address [address] [place] [address] Care Team Providers Care Doll Repairer Name Role Phone Unavailable Unavailable Unavailable Surgery Details Not on file Complications Check Surgery Details section. Procedure Estimated Blood Loss Check Surgery Details section. Procedure Findings Check Surgery Details section. Procedure Specimens Taken Check Surgery Details section.
--- OUTSIDE RECORDS SUMMARY | 2024-09-14 12:08 | XMS_ITS | Clinical Summary ---
Author Organization [facility] Address [address] [place] [address] Care Team Providers Care Sap Security Consultant Name Role Phone Unavailable Primary Care Provider Unavailabl e Allergies Active Allergy Reactions Criticality Noted Date Comments Azithromycin Nausea And Vomiting Low 03/21/2020 Emollient Combination No.25 Other High 03/21/2020 I get dystonic Metoclopramide Hcl Other High 03/21/2020 I get dystonic Nsaids (Non-Steroidal Anti-Inflammatory Drug) Other High 03/21/2020 Nausea Medications atorvastatin (LIPITOR) 80 mg tablet Take 80 mg by mouth 1 (one) time each day. 09/23/2021 Active amphetamine-dex troamphetamine XR (ADDERALL XR) 20 mg 24 hr capsule Take 20 mg by mouth 1 (one) time each day in the morning. 07/08/2021 Active donepeziL (ARICEPT) 10 mg tablet Take 10 mg by mouth 1 (one) time each day. 07/20/2021 Active gabapentin (NEURONTIN) 300 mg capsule Take 600 mg by mouth in the morning and 600 mg at noon and 600 mg in the evening. 09/24/2021 Active hydrOXYzine pamoate (VISTARIL) 50 mg capsule TAKE 2 CAPSULES BY MOUTH AT NIGHT 07/09/2021 Active lamoTRIgine (LaMICtal) 200 mg tablet Take 1 tablet by mouth in the morning and 1 tablet before bedtime. 09/25/2021 Active levothyroxine (SYNTHROID, UNITHROID) 100 mcg tablet Take 100 mcg by mouth 1 (one) time each day. 09/26/2021 Active mirtazapine (REMERON) 15 mg tablet TAKE 1 AND 1/2 TABLETS BY MOUTH AT BEDTIME 09/10/2021 Active ondansetron (ZOFRAN) 4 mg tablet Take 4 mg by mouth 2 (two) times a day if needed. 08/31/2021 Active traZODone (DESYREL) 100 mg tablet TAKE 4 TABLETS BY MOUTH EVERY NIGHT AT BEDTIME 09/08/2021 Active QUEtiapine (SEROquel) 50 mg tablet Take 50 mg by mouth every night. 09/08/2021 Active prazosin (MINIPRESS) 2 mg capsule 09/23/2021 Active ZOLMitriptan (ZOMIG) 5 mg tablet TAKE 1 TABLET BY MOUTH AT ONSET OF MIGRAINE. MAY REPEAT IN 2 HOURS IF NEEDED 08/31/2021 Active zolpidem (AMBIEN) 10 mg tablet Take 10 mg by mouth every night. 09/10/2021 Active Botox 200 unit injection 09/24/2021 Active amphetamine-dex troamphetamine XR (ADDERALL XR) 25 mg 24 hr capsule Take 25 mg by mouth 1 (one) time each day in the morning. 08/06/2021 Active Active Problems No known active problems Social History Tobacco Use Types Packs/Day Years Used Date Smoking Tobacco: Never Smokeless Tobacco: Never Comments Unknown Sex and Gender Information Value Date Recorded Sex Assigned at Not on file Legal Sex Female 7:26 PM PST Gender Identity Not on file Sexual Orientation Not on file Plan of Treatment Health Maintenance Due Date Last Done Comments Scaling and Root Planing 06/15/2021 06/01/2019 Periodontal Maintenance 12/29/2021 09/30/19, 12/15/2020, 06/09/2020, Additional history exists Dental Oral Exam 03/31/2022 09/30/2021, , 02/11/2020, Additional history exists Dental X-Ray: Bitewings 03/31/2022 09/30/2021 Dental X-Ray: Full Mouth 04/05/2023 04/04/2020, 05/22 Dental X-Ray: Panoramic 04/05/2023 04/04/2020, 06/01 Procedures Procedure Name Priority Date/Time Associated Diagnosis Comments PERIODIC ORAL EVALUATION - ESTABLISHED PATIENT Routine 09/30/2021 10:15 AM [facility] PERIO MAINTENANCE Routine 09/30/2021 10: 00 AM [facility] PANORAMIC RADIOGRAPHIC IMAGE Routine 06/01/2019 12:00 AM [facility] LL PERIODONTAL SCALING AND ROOT PLANING - ONE TO THREE TEETH PER QUADRANT Routine 06/01/2019 12:00 AM [facility] INTRAORAL - COMPREHENSIVE SERIES OF RADIOGRAPHIC IMAGES Routine 06/01/2019 12:00 AM [facility] from Last 3 Months or Most Recently Relevant to Health Maintenance
--- OUTSIDE RECORDS SUMMARY | 2024-09-14 12:08 | XMS_ITS | CCD ---
Author Organization [facility] [place] Address [address] [place] [address] Care Team Providers Care Maritime Officer Name Role Phone Unavailable Primary Care Provider [...] Orientation Not on file Plan of Treatment Not on file Procedures Procedure Name Priority Date/Time Associated Diagnosis Comments PERIODIC ORAL EVALUATION - ESTABLISHED PATIENT Routine 09/30/2021 10:15 AM [facility] PERIO MAINTENANCE Routine 09/30/2021 10: 00 AM [facility] PANORAMIC RADIOGRAPHIC IMAGE Routine 06/01/2019 12:00 AM [facility] PERIODONTAL SCALING AND ROOT PLANING - ONE TO THREE TEETH PER QUADRANT Routine 06/01/2019 12:00 AM [facility] INTRAORAL - COMPREHENSIVE SERIES OF RADIOGRAPHIC IMAGES Routine 06/01/2019 12:00 AM [facility] from Last 3 Months or Most Recently Relevant to Health Maintenance
--- OUTSIDE RECORDS SUMMARY | 2024-09-14 12:08 | XMS_ITS | Data Portability ---
Author Organization [facility], [facility] Address [address] [place] [address] Care Team Providers Care Mechanical Detailer Name Role Phone ASHLEY MARCOS Neurologist LIZETTE BONE Psychiatrist LOLY WILSON Primary Care Provider Assessment No assessment recorded. Plan of Treatment Reminders Order Date Submit Date Provider Last Modified By Organization Details Last Modified Time Details Appointments None recorded . Lab TSH + free T4, serum 2019 020 [facility], [address], [place], [address], 0 23:32:13 lipids, total, serum 2019 020 [facility], [address], [place], [address], 0 23:32:14 CMP, serum or plasma 2019 020 [facility], [address], [place], [address], 0 23:32:13 lipid panel, serum 2020 021 [facility] [employer], [address], [place], [address], 1 10:29:20 CMP, serum or plasma 2020 021 [facility] [employer], [address], [address], [place], [address], 1 10:29:20 unlisted lab - T4 free,TSH 2020 021 [facility] [employer], [address], [place], [address], 1 10:29:19 Referral physical therapis t referral 2019 020 [facility] [address], [place], [address], 0 15:10:[address] referral 2019 020 ATHENAFAX Not available 0 14:40:07 Procedures colonosc opy procedur e (PROC) 2020 021 clinarez Not available 1 15:29:50 upper endoscop y procedur e (EGD) (PROC) 2020 021 [email or web address] Not available 1 16:30:11 Surgeries None recorded . Imaging None recorded . Medication Orders cyclobeleonie zaprine 5 mg tablet 2019 [facility]20 [id number], [address], [place], [id number], 1 16:57:20 NuLYTELY with Flavor Packs 420 gram oral solution 2020 021 [id number], [address], [place], [id number], 1 16:58:19 ProAir HFA 90 mcg/actu ation aerosol inhaler 2020 021 INTERFACE [facility] #[id number], [address], [place], [id number], 17:11:37 levothyr oxine 100 mcg tablet 2020 [id number], [address], [place], [id number], 17:11:37 Patient TargetsNo targets recorded. Patient Instructions Encounter Date Encounter Id Patient Instructions Last Modified By Organization Details Last Modified Time 03/11/2020 [id number] advance care planning: care instructions [email or web address] Not available 03/11/2020 13:53:34 A healthy lifestyle: care instructions wpurushotham Not available 03/11/2020 13:53:34 preventing falls: care instructions wpurushotham Not available 03/11/2020 13:53:34 COUNSELING & COORDINATION of CARE {{Yes* No N/A}}: Increase Exercise {{Yes* No N/A}}: Encourage Weight Loss {{Yes* No N/A}}: Decrease Fat {{Yes No N/A*}}: Diabetic Patient Counseling {{Yes No N/A*}}: Smoking Cessation {{Yes No N/A*}}: Decrease Alcohol {{Yes* No N/A}}: Decrease Salt {{Yes* No N/A}}: Increase Fiber {{Yes* No N/A}}: Increase H20 {{Yes* No N/A}}: Counseled patient regarding Lab/Dx/need for follow-up {{Yes* No N/A}}: Discussed medications, side effects, & compliance {{Yes* No N/A}}: Dental Care {{Yes* No N/A}}: Eye Exam wpurushotham Not available 03/11/2020 13:48:21 09/03/2020 [id number] advance directives: care instructions [email or web address] Not available 09/03/2020 19:25:08 01/23/2021 [id number] advance care planning: care instructions [email or web address] Not available 01/23/2021 13:45:21 A healthy lifestyle: care instructions [facility] Not available 01/23/2021 13:45:21 preventing falls: care instructions [facility] Not available 01/23/2021 13:45:21 COUNSELING & COORDINATION of CARE {{Yes* No N/A}}: Increase Exercise {{Yes* No N/A}}: Encourage Weight Loss {{Yes* No N/A}}: Decrease Fat {{Yes No N/A*}}: Diabetic Patient Counseling {{Yes No N/A*}}: Smoking Cessation {{Yes No N/A*}}: Decrease Alcohol {{Yes* No N/A}}: Decrease Salt {{Yes* No N/A}}: Increase Fiber {{Yes* No N/A}}: Increase H20 {{Yes* No N/A}}: Counseled patient regarding Lab/Dx/need for follow-up {{Yes* No N/A}}: Discussed medications, side effects, & compliance {{Yes* No N/A}}: Dental Care {{Yes* No N/A}}: Eye Exam 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 Associate Referral for Rea's esophagus h/o barretts esophagus and gerd Referring Physician: [facility], Encounter Date: 03/11/2020 Physical Therapist Referral for Low back pain low back pain and unsteady gait, sometimes off balance Referring Physician: [facility], Encounter Date: 03/11/2020 Results Created Date Observation Date Name Description Value Unit Range Abnormal Flag Note LastModifiedBy Organization Detail LastModifiedTime 03/11/20 20 03/11/2020 CMP, serum or plasm a glu 103 mg/dL 70-100 high Not Available [facility] [address], [place], [address], 03/11/2020 23:32:13 03/11/20 20 03/11/2020 CMP, serum or plasm a BUN 18 mg/dL 8-25 Not Available [facility] [address] [place], [address], 03/11/2020 23:32:13 03/11/20 20 03/11/2020 CMP, serum or plasm a crea 0.8 mg/dL 0.6-1. 4 For patie nts >49 years of age, the refer ence limit for Creat inine is appro x 13% highe r for peopl e ident ified as Afric an-Am niurka n. Not Available [facility] [address], [place], [address], 03/11/2020 23:32:13 03/11/2003/11/2020 CMP, serum or plasm a egfraa 88 mL/mi n/1.7 3m2 Not Available [facility] [address], [place], [address], 03/11/2020 23:32:13 03/11/2003/11/2020 CMP, serum or plasm a egfrnaa 73 mL/mi n/1.7 3m2 Note: eGFR Afric an and Non-A frica n Ameri can Chron ic kidne y disea se (CKD) is defin ed as eithe r kidne y damag e or persi stent reduc tion for 3 month s or more in an EGFR <60 ml/mi n/1.7 3 m2. Patie nts with EGFR value s > / =60 ml/mi n/1.7 3 m2 may also have CKD if evide nce of persi stent prote inuri a is prese nt. Refer to www.k doqi. org for addit ional infor soraya hadley on CKD. Not Available [facility] [address], [place], [address], 03/11/2020 23:32:13 03/11/20 20 03/11/2020 CMP, serum or plasm a BUN/crea 22 ratio 10-28 Not Available [facility] [address], [place], [address], 03/11/2020 23:32:13 03/11/20 20 03/11/2020 CMP, serum or plasm a tbil 0.2 mg/dL 0.2-1. 3 Not Available [facility] [address] [place], [address], 03/11/2020 23:32:13 03/11/2003/11/2020 CMP, serum or plasm a AST 29 U/L 14-36 Not Available [facility] [address] [place], [address], 03/11/2020 23:32:13 03/11/2003/11/2020 CMP, serum or plasm a ALT 31 U/L 9-52 Not Available [facility] [address] [place], [address], 03/11/2020 23:32:13 03/11/2003/11/2020 CMP, serum or plasm a ALKP 79 U/L 40-129 Not Available [facility] [address] [place], [address], 03/11/2020 23:32:13 03/11/2003/11/2020 CMP, serum or plasm a Ca 9.8 mg/dL 8.3-10 .4 Not Available [facility] [address] [place], [address], 03/11/2020 23:32:13 03/11/2003/11/2020 CMP, serum or plasm a Na 139 mmol/ L 135-14 5 Not Available [facility] [address] [place], [address], 03/11/2020 23:32:13 03/11/2003/11/2020 CMP, serum or plasm a K 4.2 mmol/ L 3.5-5. 2 Not Available [facility] [address] [place], [address], 03/11/2020 23:32:13 03/11/2003/11/2020 CMP, serum or plasm a cL 107 mmol/ L 96-110 Not Available [facility] [address] [place], [address], 03/11/2020 23:32:13 03/11/20 20 03/11/2020 CMP, serum or plasm a CO2 25 mmol/ L 22-30 Not Available [facility] [address] [place], [address], 03/11/2020 23:32:13 03/11/2003/11/2020 CMP, serum or plasm a TP 6.3 g/dL 6.3-8. 2 Not Available [facility] [address] [place], [address], 03/11/2020 23:32:13 03/11/2003/11/2020 CMP, serum or plasm a alb 3.8 g/dL 3.5-5. 0 Not Available [facility] [address] [place], [address], 03/11/2020 23:32:13 03/11/2003/11/2020 CMP, serum or plasm a glob 2.5 g/dL 2.0-3. 7 Not Available [facility] [address] [place], [address], 03/11/2020 23:32:13 03/11/2003/11/2020 CMP, serum or plasm a Ag 1.5 ratio 1.0-2. 4 Not Available [facility] [address] [place], [address], 03/11/2020 23:32:13 03/11/2003/11/2020 CMP, serum or plasm a agap 7 mmol/ L 4-18 Not Available [facility] [address] [place], [address], 03/11/2020 23:32:13 03/11/2003/11/2020 TSH + free T4, serum FT4 1.4 NG/dL 0.8-1. 7 Not Available [facility] [address] [place], [address], 03/11/2020 23:32:13 03/11/2003/11/2020 TSH + free T4, serum TSH <0.02 mIU/L 0.45-4 .50 low Not Available [facility] [address] [place], [address], 03/11/2020 23:32:13 03/11/2003/11/2020 lipid s, total , serum trig 183 mg/dL <150 high Zaira l: <150 mg/dL Borde rline High: 150-1 99 mg/dL High: 200-4 99 mg/dL Very High: great er than or equal to 500 mg/dL Not Available [facility] [address] [place], [address], 03/11/2020 23:32:14 03/11/20 20 03/11/2020 lipid s, total , serum chol 160 mg/dL <200 Antoinette able: <200 mg/dL Borde rline High: 200-2 39 mg/dL High: great er than or equal to 240 mg/dL Not Available [facility] [address] [place], [address], 03/11/2020 23:32:14 03/11/20 20 03/11/2020 lipid s, total , serum HDL 78 mg/dL >=46 Not Available [facility] [address] [place], [address], 03/11/2020 23:32:14 03/11/20 20 03/11/2020 lipid s, total , serum LDLC 45 mg/dL <=129 Targe t for non-H DL gavin stero l is 30 mg/dL highe r than LDL gavin stero l targe t. Not Available [facility] [address] [place], [address], 03/11/2020 23:32:14 03/11/20 20 03/11/2020 lipid s, total , serum chol/HDL 2.1 ratio <=4.4 Not Available [facility] [address] [place], [address], 03/11/2020 23:32:14 03/11/20 20 03/11/2020 lipid s, total , serum LDL/HDL 0.6 ratio >0.4 Not Available [facility] [address] [place], [address], 03/11/2020 23:32:14 03/11/20 20 03/11/2020 lipid s, total , serum VLDL 37 mg/dL <=29 high Not Available [facility] [address] [place], [address], 03/11/2020 23:32:14 05/07/20 21 05/07/2021 T4 FREE, TSH TSH, high sensitivity 0.77 mU/L 0.45 - 4.50 Not Available [facility], [address], [address], 05/08/2021 00:39:16 05/07/20 21 05/07/2021 T4 FREE, TSH T4 free non-dialysis 1.2 NG/dL 0.8 - 1.7 Not Available [facility] [address] [place] [address], [address], 05/08/2021 00:39:16 05/07/20 21 05/07/2021 COMPR EHENS DANIELA METAB OLIC PANEL glucose 89 mg/dL 65 - 99 Gluco se refer ence range refle cts fasti ng state . Not Available [facility] [address] [place] [address], [address], 05/08/2021 00:39:16 05/07/20 21 05/07/2021 COMPR EHENS DANIELA METAB OLIC PANEL urea nitrogen (BUN) 15 mg/dL 7 - 28 Not Available [facility] [address] [place] [address], [address], 05/08/2021 00:39:16 05/07/20 21 05/07/2021 COMPR EHENS DANIELA METAB OLIC PANEL creatinine 1.46 mg/dL 0.60 - 1.40 high Not Available [facility] [address] [place] [address], [address], 05/08/2021 00:39:16 05/07/20 21 05/07/2021 COMPR EHENS DANIELA METAB OLIC PANEL GFR estimated (non-) 38 mL/mi n/1.7 3m2 >=60 low Not Available [facility] [address] [place] [address], [address], 05/08/2021 00:39:16 05/07/20 21 05/07/2021 COMPR EHENS DANIELA METAB OLIC PANEL GFR estimated () 44 mL/mi n/1.7 3m2 >=60 low Not Available [facility] [address] [place] [address], [address], 05/08/2021 00:39:16 05/07/20 21 05/07/2021 COMPR EHENS DANIELA METAB OLIC PANEL BUN/creatini ne ratio 10.3 10.0 - 28.0 Not Available [facility] [address] [place] [address], [address], 05/08/2021 00:39:16 05/07/2005/07/2021 COMPR EHENS DANIELA METAB OLIC PANEL sodium 141 mmol/ L 135 - 145 Not Available [facility] [address] [place] [address], [address], 05/08/2021 00:39:16 05/07/2005/07/2021 COMPR EHENS DANIELA METAB OLIC PANEL potassium 4.8 mmol/ L 3.6 - 5.3 Not Available [facility] [address] [place] [address], [address], 05/08/2021 00:39:16 05/07/20 21 05/07/2021 COMPR EHENS DANIELA METAB OLIC PANEL chloride 105 mmol/ L 95 - 109 Not Available [facility] [address] [place] [address], [address], 05/08/2021 00:39:16 05/07/20 21 05/07/2021 COMPR EHENS DANIELA METAB OLIC PANEL carbon dioxide (co2) 24 mmol/ L 20 - 31 Not Available [facility] [address] [place] [address], [address], 05/08/2021 00:39:16 05/07/20 21 05/07/2021 COMPR EHENS DANIELA METAB OLIC PANEL anion gap 12 4 - 18 Not Available [facility] [address] [place] [address], [address], 05/08/2021 00:39:16 05/07/20 21 05/07/2021 COMPR EHENS DANIELA METAB OLIC PANEL protein, total 6.8 g/dL 6.0 - 7.7 Not Available [facility] [address] [place] [address], [address], 05/08/2021 00:39:16 05/07/20 21 05/07/2021 COMPR EHENS DANIELA METAB OLIC PANEL albumin 4.2 g/dL 3.8 - 5.1 Not Available [facility] [address] [place] [address], [address], 05/08/2021 00:39:16 05/07/20 21 05/07/2021 COMPR EHENS DANIEAL METAB OLIC PANEL globulin 2.6 g/dL 1.9 - 3.7 Not Available [facility] [address] [place] [address], [address], 05/08/2021 00:39:16 05/07/20 21 05/07/2021 COMPR EHENS DANIELA METAB OLIC PANEL albumin/glob ulin ratio 1.6 1.0 - 2.5 Not Available [facility] [address] [place] [address], [address], 05/08/2021 00:39:16 05/07/20 21 05/07/2021 COMPR EHENS DANIELA METAB OLIC PANEL calcium 10.1 mg/dL 8.7 - 10.4 Not Available [facility] [address] [place] [address], [address], 05/08/2021 00:39:16 05/07/20 21 05/07/2021 COMPR EHENS DANIELA METAB OLIC PANEL alkaline phosphatase 91 IU/L 42 - 146 Not Available [facility] [address] [place] [address], [address], 05/08/2021 00:39:16 05/07/20 21 05/07/2021 COMPR EHENS DANIELA METAB OLIC PANEL alanine aminotransfe rase 25 IU/L 5 - 46 Not Available [facility] [address] [place] [address], [address], 05/08/2021 00:39:16 05/07/20 21 05/07/2021 COMPR EHENS DANIELA METAB OLIC PANEL aspartate aminotransfe rase 21 IU/L 11 - 40 Not Available [facility] [address] [place] [address], [address], 05/08/2021 00:39:16 05/07/20 21 05/07/2021 COMPR EHENS DANIELA METAB OLIC PANEL bilirubin, total 0.5 mg/dL <=1.3 Not Available [facility] [address] [place] [address], [address], 05/08/2021 00:39:16 05/07/20 21 05/07/2021 LIPID PANEL cholesterol 199 mg/dL <=199 Not Available [facility], [address], [address], 05/08/2021 00:39:17 05/07/20 21 05/07/2021 LIPID PANEL triglyceride 72 mg/dL <=149 Not Available [employer] [employer] [address] [place] [address], [address], 05/08/2021 00:39:17 05/07/20 21 05/07/2021 LIPID PANEL cholesterol/ HDL ratio 1.9 <=4.4 Not Available [facility], [employer] [address] [place] [address], [address], 05/08/2021 00:39:17 05/07/20 21 05/07/2021 LIPID PANEL HDL cholesterol 107 mg/dL >=50 Not Available [facility], [employer] [address] [place] [address], [address], 05/08/2021 00:39:17 05/07/20 21 05/07/2021 LIPID PANEL non-HDL cholesterol 92 mg/dL <=129 Not Available [facility], [employer] [address] [place] [address], [address], 05/08/2021 00:39:17 05/07/20 21 05/07/2021 LIPID PANEL LDL cholesterol, calculated 76 mg/dL <=99 LDL-C is calcu lated by using the Camille n-Hop kins equat ion. (BETY . 2013; 310(1 9):20 61-20 68) For moder ately high risk and high risk cardi ac patie nts, refer ence level s of <100 mg/dL and <70 mg/dL , respe ctive ly, shoul d be consi dered . Circu latio n 2004; 110:2 27-23 9. Not Available [email or web address] [address] [place] [address], [address], 05/08/2021 00:39:17 05/07/20 21 05/07/2021 LIPID PANEL VLDL cholesterol 16 mg/dL <=29 Not Available [facility] [address], [address], 05/08/2021 00:39:17 06/12/2006/12/2021 BASIC METAB OLIC PANEL W/EGF R glucose 83 mg/dL 70 - 99 Gluco se refer ence range refle cts fasti ng state . Note: New refer ence range effec tive 2020. Not Available [facility] [address] [place] [address], [address], 06/12/2021 15:21:15 06/12/2006/12/2021 BASIC METAB OLIC PANEL W/EGF R urea nitrogen (BUN) 10 mg/dL 7 - 28 Not Available [facility] [employer] [address] [place] [address], [address], 06/12/2021 15:21:15 06/12/2006/12/2021 BASIC METAB OLIC PANEL W/EGF R creatinine 1.28 mg/dL 0.60 - 1.40 Not Available [facility], [employer] [address] [place] [address], [address], 06/12/2021 15:21:15 06/12/2006/12/2021 BASIC METAB OLIC PANEL W/EGF R GFR estimated (non-) 44 mL/mi n/1.7 3m2 >=60 low Not Available [facility] [employer] [address] [place] [address], [address], 06/12/2021 15:21:15 06/12/2006/12/2021 BASIC METAB OLIC PANEL W/EGF R GFR estimated () 52 mL/mi n/1.7 3m2 >=60 low Not Available [facility], [employer] [address] [place] [address], [address], 06/12/2021 15:21:15 06/12/2006/12/2021 BASIC METAB OLIC PANEL W/EGF R BUN/creatini ne ratio 7.8 10.0 - 28.0 low Not Available [facility], [address], [address], 06/12/2021 15:21:15 06/12/2006/12/2021 BASIC METAB OLIC PANEL W/EGF R sodium 142 mmol/ L 135 - 145 Not Available [facility] [address] [place] [address], [address], 06/12/2021 15:21:15 06/12/2006/12/2021 BASIC METAB OLIC PANEL W/EGF R potassium 4.8 mmol/ L 3.6 - 5.3 Not Available [facility], [address], [address], 06/12/2021 15:21:15 06/12/2006/12/2021 BASIC METAB OLIC PANEL W/EGF R chloride 108 mmol/ L 95 - 109 Not Available [facility], [employer] [address] [place] [address], [address], 06/12/2021 15:21:15 06/12/20 21 06/12/2021 BASIC METAB OLIC PANEL W/EGF R carbon dioxide (co2) 25 mmol/ L 20 - 31 Not Available [facility] [address] [place] [address], [address], 06/12/2021 15:21:15 06/12/20 21 06/12/2021 BASIC METAB OLIC PANEL W/EGF R anion gap 9 4 - 18 Not Available [facility], [address], [address], 06/12/2021 15:21:15 06/12/20 21 06/12/2021 BASIC METAB OLIC PANEL W/EGF R calcium 10.0 mg/dL 8.7 - 10.4 Not Available [facility], [address] [place], [address], 06/12/2021 15:21:15 03/05/20 19 03/05/2019 MAMMO riyag, bilat eral No observ ation record ed. [email or web address] [facility] [address], [place], [address], 03/06/2019 13:31:10 03/24/20 20 03/24/2020 MAMMO riyag, bilat eral No observ ation record ed. strtonia [facility] [address], [place], [address], 03/24/2020 18:10:04 12/31/19 21 12/29/2020 MRI, brain + brain stem, w/wo contr ast No observ ation record ed. [facility] [place] [address] [place], [address], 01/23/2021 13:45:11 Result Notes None recorded. Problems Name Problem SNOMED Code Status Onset Date Resolution Date Notes Provider Name and Address Organization Details Recorded Time Bipolar disorder 95477983 Active 2017 Not Available [facility] 11:19:06 Hyperlipid emia 61899478 Active 2017 Not Available [facility] 2 11:19:06 Chronic post-traum atic stress disorder 511126409 Active 2017 Not Available [facility] 2 11:19:06 Migraine 79054576 Active 2017 Not Available [facility] 2 11:19:06 Hypothyroi dism 15048158 Active 2018 Not Available [facility] 2 11:19:06 Asthma 981222097 Active 2018 Not Available [facility] 2 11:19:06 Multiple personalit y disorder 32855376 Active 2018 Not Available [facility] 2 11:19:06 History of traumatic brain injury 809197033495 00 Active 2018 x 3, most recent in 2016 Not Available [facility] 2 11:19:06 History of Rea's esophagus 077123897623 95954 Active 2020 Not Available [facility] 2 11:19:06 Notes:Anxiety (Active); Note s: Medical Bipolar disorder (Active); Notes: Medical Depression (Active); Notes: Medical Hyperglycemia (Active); Notes: Medical Hypertriglyceridemia (Active); Notes: Medical Hypothyroidism (Active); Notes: Medical Multiple personality disorder (Active); Notes: Medical Neoplasm and/or hamartoma (Active); Notes: Medical Screening status (Active); Notes: Medical Traumatic brain injury (Active); Notes: Medical Problem Notes None recorded. Procedures Surgical History Date Name Laterality Status Provider Name and Address Organization Details Recorded Time 01/24/20 21 [facility] 01/23/2021 13:33:40 01/24/20 21 AWE 5-10 Year Plan - Female completed Loly Wilson MD [address], [place], [address], [facility] 01/23/2021 13:47:46 01/24/20 21 Mini-COG completed Loly Wilson MD [address], [place], [address], [facility] 01/23/2021 13:47:57 01/24/20 21 PHQ-9 completed Loly Wilson MD [address], [place], [address], [facility] 01/23/2021 13:40:24 03/11/20 20 Visual Acuity completed Loly Wilson MD [address], [place], [address], [facility] 03/11/2020 14:03:40 03/11/20 20 AWE 5-10 Year Plan - Female completed Loly Wilson MD [address], [place], [address], [facility] 03/11/2020 14:02:39 03/11/20 20 Mini-COG completed Loly Wilson MD [address], [place], [address], [facility] 03/11/2020 14:03:10 03/11/20 20 PHQ-9 completed Loly Wilson MD [address], [place], [address], [facility] 03/11/2020 14:03:35 03/11/20 20 Fall Risk Screening Tool completed Loly Wilson MD [address], [place], [address], [facility] 03/11/2020 14:02:49 08/22/19 17 Colonoscopy completed Janneth Godfrey [facility] 09/04/2018 17:49:38 08/22/19 16 Colonoscopy completed Laura Fabian MD [address], [place], [address], [facility] 09/06/2020 12:31:38 08/22/18 78 [facility] 18:24:43 Imaging Results Imaging Date Name Status LastModified by Organiz ation Details LastModified Time 03/05/2019 MAMMO, screening, bilateral [facility] [address] [facility] [address], [place], [address], 03/06/2019 13:31:10 03/24/2020 MAMMO, screening, bilateral completed striste [facility] [address] [facility] [address], [place], [address], 03/24/2020 18:10:04 12/29/2020 MRI, brain + brain stem, w/wo contrast completed keanu [facility] [place] [address] [place], [address], 01/23/2021 13:45:11 Procedure Notes None recorded. Medical Equipment None Reported. Allergies Allergen ID Allergen Name Allergen Category Reaction Reaction Severity Criticality Documentation Date Start Date Code Code System Note Provider Name and Address Organization Details Recorded Time [id number] prasteron e medicatio n Not available Not available Not available 10/20/2017 3143 RxNorm Not Available [facility] [employer] 8 10:46:58 [id number] Reglan medicatio n Not available Not available Not available 10/20/2017 9230 RxNorm Not Available [facility] [employer] 8 10:46:58 [id number] erythromy ajit medicatio n Not available Not available Not available 10/20/2017 4053 RxNorm Not Available [facility] [employer] 8 10:46:58 [id number] Non-stero idal anti-infl ammatory agent (product) medicatio n Not available Not available Not available 09/03/2020 [id number] SNOMED Dayana Shant [facility] 19:11:44 Medications Name Sig Start Date Stop Date Status Note LastModified by Organization Details LastModified Time levothyroxi ne 137 mcg tablet TAKE 1 TABLET BY MOUTH EVERY DAY 10/14 completed Not Available Not Available Not Available atorvastati n 80 mg tablet TAKE 1 TABLET BY MOUTH DAILY at HS 2021 active Not Available Not Available Not Avai lable prednisone 10 mg tablet TK 1 T PO QD FOR 5 DAYS 03/11 completed Not Available Not Available Not Available benztropine 0.5 mg tablet TAKE 1 TABLET BY MOUTH EVERY DAY 10/14 completed Not Available Not Available Not Available donepezil 5 mg tablet TAKE 1 TABLET BY MOUTH EVERY DAY active Not Available Not Available No t Available azithromyci n 250 mg tablet TK 2 TS PO FOR 1 DAY THEN TK 1 T PO FOR 4 DAYS 03/11 completed Not Available Not Available Not Available amitriptyli ne 75 mg tablet TK 1 T PO HS 10/14 completed Not Available Not Available Not Available sumatriptan 100 mg tablet TK 1 T PO PRF HEADACHE. MAY REPEAT IN 2 HOURS. MAX OF 2 DOSES IN 24 HOURS AND A MAX OF 2 DAYS A WEEK 12/21 completed Not Available Not Available Not Available prazosin 1 mg capsule TK 3 C PO QHS 09/04 completed Not Available Not Available Not Available ondansetron HCl 4 mg tablet TK 1 T PO Q 8 H PRF NAUSEA active Not Available Not Available No t Available clonazepam 0.5 mg tablet TK 1 T PO QD 03/11 completed Not Available Not Available Not Available hydroxyzine pamoate 50 mg capsule TAKE 2 CAPSULES BY MOUTH AT NIGHT active Not Available Not Available No t Available hydroxyzine HCl 50 mg tablet take one capsule twice a day 02/01 completed Not Available Not Available Not Available oxcarbazepi ne 300 mg tablet TK 2 TS PO BID active Not Available Not Available No t Available amitriptyli ne 50 mg tablet TAKE 1 TABLET BY MOUTH AT BEDTIME active Not Available Not Available No t Available zolmitripta n 5 mg tablet TAKE 1 TABLET BY MOUTH AT ONSET OF MIGRAINE. MAY REPEAT IN 2 HOURS IF NEEDED active Not Available Not Available No t Available pantoprazol e 20 mg tablet,chiara yed release Take 1 tablet every day by oral route. active Not Available Not Available No t Available ketorolac 0.5 % eye drops INT 1 GTT IN OD QID 10/14 completed Not Available Not Available Not Available zonisamide 100 mg capsule Take 1 capsule 3 times a day by oral route. active Not Available Not Available No t Available levothyroxi ne 100 mcg tablet TAKE 1 TABLET BY MOUTH EVERY DAY active Not Available Not Available No t Available trazodone 100 mg tablet TAKE 3 TABLETS BY MOUTH EVERY NIGHT AT BEDTIME active Not Available Not Available No t Available amitriptyli ne 10 mg tablet TK 5 TS PO HS 10/14 completed Not Available Not Available Not Available meclizine 25 mg tablet TK 1 T PO TID PRN 09/03 completed Not Available Not Available Not Available diazepam 2 mg tablet TAKE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 continue current treatment Migraine 44273323 G43.90 9 continue current therapy [id number] Loly martinez MD [facility] [address] [place] [address] 10/14/2020 16:47:13 10/15/2020 09:52:37 Asthma 625487021 J45.909 well controlled refilled pro air Hypothyroidism 52315839 E03.9 well controlled continue levothyrox ine 100mcgrece ntly changed at [place] Hyperlipidemia 05749841 E78.5 well controlled low fat diet and exercisetr ig mildly highweight lossAdvise d that maintainin g good cholestero l helps to decrease the risk of heart attack, stroke and kidney disease. Advised to maintain a low fat diet, take medication s as directed. Advised to watch for side effects of medication s including muscle aches and muscle fatigue. Depression screening 171 561478 Z13.31 see PQH-2 result in body of chart Screening Negative Bipolar disorder 9109900 4 F31.9 doing okwas recently hospitaliz ed [place] 10[place]02 to 10/13/20 for SIshe is doing much bettercont inue to follow with dr. bone her psychiatri stdenies si or liswill obtain consent to get records from [facility] [id number] Loly martinez MD [facility] [address] [place] [address] 01/23/2021 13:21:40 01/23/2021 13:57:44 Hypothyroidism 51488173 E03.9 well controlled continue levothyrox ine 100mcg Adult heal th examination 160303095 Z00.00 doing fine overallenc ouraged pt to keep up with her daily exercising Hyperlipidemia 66497097 E78.5 well controlled low fat diet and exerciseco ntinue atorvastat inwill check leveslAdvi sed that maintainin g good cholestero l helps to decrease the risk of heart attack, stroke and kidney disease. Advised to maintain a low fat diet, take medication s as directed. Advised to watch for side effects of medication s including muscle aches and muscle fatigue. Nocturia 040100791 R35.1 stableprac pat kegelslimi t fluids prior to bed Rea's esophagus 3029 47634 K22.70 stableneve r was a smokerrefe rral to GIcontinue PPI Multiple p ersonality disorder 25347001 F44.81 stablefoll owing with psychiatry continue current meds Bipolar disorder 8884195 4 F31.9 stablefoll owed by psychiatri AndrearKavitha Bone.co ntinue current meds Depression screening 171 192590 Z13.31 see PQH-9 result in body of chart Screening Negative Chronic ki dney disease stage 3A 724353349 N18.31 stable will continue to monitor avoid nephrotoxi c agents Health Concerns Section Related Observation LastModified by Organization Detai ls LastModified Time None Recorded Concern Status LastModified by Organization Details LastModified Time None Recorded Advance Directives Directive Y: Payers Encounter Date Sequence Insurance Name Policy Number Policy Sood Covered Member ID Sood Member ID Guarantor Name 02/15/2019 1 [facility] [id number] Olivia Witting [id number] Olivia Witting 03/11/2020 1 [facility] [id number] Olivia Witting [id number] Olivia Witting 09/03/2020 1 [facility] [id number] Olivia Witting [id number] Olivia Witting 10/14/2020 1 [facility] [id number] Olivia Witting [id number] Olivia Witting 01/23/2021 1 [facility] [id number] Olivia Witting [id number] Olivia Witting Notes Date Note Type Note Provider Name and Address Organization Details Recorded Time 9 text/html here for follow up says she is doing well today saw a colleague in my office on 02/01/19 for right ear paindiagnosed with otitis externawas prescribed ciprodex dropsshe says she is still using the drops but the right ear is stillhurtingfeels like there is water in it. pt has multiple personality disored and bipolar disordertoday she says she is josette 13 she is followed by psychiatrist dr. Bone states it is going well migraines are better controlled with the new addition of aimovig. Pt denies any chest pain or shortness of breath. No abdominal pain. denies any issues with urination or bowel movements. No blood in urine or stool Denies any fevers or chills Loly Wilson MD [address], [place], [address], [place] [facility] 02/15/2019 17:14:54 0 text/html Medicare AWV/IPPEReported bypatient.Hearing:no limitations Vision:no limitations; using corrective lenses Speech:normal Mobility:no limitations Transferring:no limitations Toileting:no limitations Bathing:no limitations Eating:no limitations Dressing:no limitations Activitiesexercises on a regular basis; recent increase in physical activity; good physical condition Medication Management:no limitations Shopping:no limitations Housework:no assistance required Financial:no limitations Home Safety:reviewed and discussed shower safety; benefit of guard rails; minimizing clutter; seat belt use; driving precautions; transition zones between hard floors and carpet; regular routine exercise recommended to improve ADL/IDL and reduce fall risk Legal documents on file for Advance DirectivePatient does have an advance directive in the chart. Patient was instructed to bring a copy of their advance directive to the office. Patient did receive Advance Directive counseling and information. here for follow up and is due for awv pt has multiple personality disored and bipolar disorder feels she is doing ok toda she is followed by psychiatrist dr. Bone states it is going well migraines are better controlled was on aimovig for a period of timebut it was too expensivefollows with neurology has h/o barretts esophaguslast scope was in 2016says her gerd is controlled has hypothyroidismdenies any skin changes or hot or cold intoleranceis on levothyroxine has high cholesterol for which she takes atorvastatin is due for labs Pt denies any chest pain or shortness of breath. No abdominal pain. denies any issues with urination or bowel movements. No blood in urine or stool Denies any fevers or chills denies depression current pain is 4 out of 10in left lower backthis is a chronic pain that comes and goes.denies any numbness or tingling in the legsno bowel or bladder incontinencesometimes will get spasms in lower back. she exercises by doing lite walking dailyshe rides her stationary bike 4 to 5 times a weekwill ride the bike about 45 minutes denies any falls denies any urine incontinencebut has nocturia once a night Loly Wilson MD [address], [place], [address], [facility] 03/11/2020 14:05:43 1 text/html 60-year-old female referred by her primary care physician, Dr. Loly Frankel for further evaluation of GERD and a prior diagnosis of Rea's esophagus and for a follow-up colonoscopy for history of polyps.She was reportedly diagnosed with short segment of Rea's esophagus in 2012 and started on Omeprazole 20 mg bid that she is still taking. At her last EGD in 2016, however no Rea's was found at biopsies but she was still recommended to have a follow up EGD in 3 years. However at that time biopsies were pos for H. Pylori .Despite taking Omeprazole she has still frequent nausea and heartburn, occasional regurgitation but no vomiting or dysphagia.She underwent a colonoscopy in 2016 with the finding of adenomatous polyp and it was recommended follow up colonoscopy in 5 years.She has a family history of colon cancer in her paternal grandmother.She has a long history of constipation on Miralax prn and sometimes she has a bowel movementt once a week. she denies any abdominal pain, blood in the stool or weight loss.She is on medication for hypothyroidism, hyperlipidemia, bipolar disorder and has history of TBI, s/p x 4 concussions. Laura Fabian MD [address], [place], [address], [facility] 09/06/2020 13:54:12 1 text/html here for follow up she is doing ok she was recently hospitalized [facility] from 10/02 to 10/13/20for SIshe has psych conditions including bipolar, ptsd, depression and multiple personality disordersays she is feeling much better todaydenies si or hisays during hospitalization shew as told she had an abnormal ecg and that she needed to see cardiologyrecords are not avalab.eshe denies any chest pain or palpitations her asthma is well controlled with inhalersneeds refill of pro air has hypothyroidism for which she levothyroxinedenies any skin changes or hot or cold intoleranceneeds a refill of her levothyroxine 100mcg her dose was decreased during hospitalization due to high t4 Pt denies any chest pain or shortness of breath. No abdominal pain. denies any issues with urination or bowel movements. No blood in urine or stool Denies any fevers or chills she completed her colonoscopy in aug 2020 and was overall good has high triglyceridestries to keep lipids controlled with diet and exercise Loly Wilson MD [address], [place], [address], [facility] 10/14/2020 17:15:06 1 text/html Medicare AWV/IPPEReported bypatient.Hearing:no limitations Vision:no limitations; using corrective lenses Speech:normal Mobility:no limitations Transferring:no limitations Toileting:no limitations Bathing:no limitations Eating:no limitations Dressing:no limitations Activitiesexercises on a regular basis; recent increase in physical activity; good physical condition Medication Management:no limitations Shopping:no limitations Housework:no assistance required Financial:no limitations Home Safety:reviewed and discussed shower safety; benefit of guard rails; minimizing clutter; seat belt use; driving precautions; transition zones between hard floors and carpet; regular routine exercise recommended to improve ADL/IDL and reduce fall risk Legal documents on file for Advance DirectivePatient does have an advance directive in the chart. Patient was instructed to bring a copy of their advance directive to the office. Patient did receive Advance Directive counseling and information. here for follow up and is due for awv pt has multiple personality disored and bipolar disorder feels she is doing ok today she is followed by psychiatrist dr. Bone states it is going well migraines are better controlled was on aimovig for a period of timebut it was too expensivefollows with neurology has h/o barretts esophaguslast scope was in 2016says her gerd is controlled has hypothyroidismdenies any skin changes or hot or cold intoleranceis on levothyroxine has high cholesterol for which she takes atorvastatin is due for labs Pt denies any chest pain or shortness of breath. No abdominal pain. denies any issues with urination or bowel movements. No blood in urine or stool Denies any fevers or chills denies depression denies any pain 0 out of 10 denies any falls she exercises by going walking and swimmingdoes this 3 to 4 times a week denies any urine incontinencebut has nocturia once or twice a night she will get up had labs done with her neurologist in november 2020her gfr was 58she was told to follow up with pcpher last gfr in february 2020 was in the 70sin 2017 it was lower her other labs were normalincluding normal thyroid levelsshe is on levothyroxine Loly Wilson MD [address], [place], [address], [place] [facility] 01/23/2021 13:49:17 OBGyn Episode No OBEpisode recorded.
--- OUTSIDE RECORDS SUMMARY | 2024-09-14 12:08 | XMS_ITS | Clinical Summary ---
Author Organization [facility] ity Address [address] [place] [address] Care Team Providers Care Industrial Yard Brake Coupler Name Role Phone Unavailable Primary Care Provider Unavailabl e Social History Tobacco Use Types Packs/Day Years Used Date Smoking Tobacco: Never Assessed Sex and Gender Information Value Date Recorded Sex Assigned at Not on file Gender Identity Not on file Sexual Orientation Not on file Plan of Treatment Health Maintenance Due Date Last Done Comments Breast Cancer Screening 1960 DTaP,Tdap,and Td Vaccines (1 - Tdap) 1977 Zoster Vaccines (1 of 2) 2008 Pneumococcal Vaccine: 65+ Ye ars (1 of 1 - PCV) 2023 COVID-19 Vaccine (1 - 2023-2 5 season) 2024 Influenza Vaccine (#1) 2024 RSV Immunization Patients 60 + Years Old (1 - 1-dose 75+ series) 2033 HIB Vaccines Aged Out No longer eligi ble based on patient's age to complete this topic HPV Vaccines Aged Out No longer eligi ble based on patient's age to complete this topic Hepatitis A Vaccines Aged Out No long er eligible based on patient's age to complete this topic Hepatitis B Vaccines Aged Out No long er eligible based on patient's age to complete this topic IPV Vaccines Aged Out No longer eligi ble based on patient's age to complete this topic MMR Vaccines Aged Out No longer eligi ble based on patient's age to complete this topic Meningococcal ACWY Vaccine Aged Out N o longer eligible based on patient's age to complete this topic RSV Immunization Patients Un meenu 20 months Aged Out No longer eligible b ased on patient's age to complete this topic Varicella Vaccines Aged Out No longer eligible based on patient's age to complete this topic
--- OUTSIDE RECORDS SUMMARY | 2024-09-14 12:08 | XMS_ITS | Continuity of Care Document ---
Author Organization [facility] Address [address] [address] Phone Care Team Providers Care Tax Economist Name Role Phone [facility] Unavailable Humera vailable Procedures Procedure Date REVISION OF UPPER EYELID REVISION OF UPPER EYELID REMOVE EYELID LESION Advance Directives Directive Yes / No Effective Date File Name No Information Encounters Encounter Description Practice Location Reason(s) For Visit Diagnoses Date Provider Providers Copied on Encounter [facility], [address] [place] [address], [id number], tel:[phone] [facility] No Information [facility]. [address] [place] [address], [id number]. tel:[phone] Referring Provider: Alexandrea bethea MD, [address] [place] [address], [address]. tel:[phone] Family History Family Member Type Diagnosis Age At Onset No Information Payers Payer name Insurance type Covered constitution party ID Authoriza tion(s) [facility] CI [id number] Social History Type Description Quantity Date Captured [...]
--- OUTSIDE RECORDS SUMMARY | 2024-09-14 12:08 | XMS_ITS | Referral Summary ---
Author Organization [facility] Address [address] [place] [address] Care Team Providers Care School Clerk Name Role Phone Unavailable Primary Care Provider [...] PERIO MAINTENANCE Routine 09/30/2021 10: 00 AM MST PANORAMIC RADIOGRAPHIC IMAGE Routine 06/01/2019 12:00 AM MST LL PERIODONTAL SCALING AND ROOT PLANING - ONE TO THREE TEETH PER QUADRANT Routine 06/01/2019 12:00 AM MST INTRAORAL - COMPREHENSIVE SERIES OF RADIOGRAPHIC IMAGES Routine 06/01/2019 12:00 AM MST from Last 3 Months or Most Recently Relevant to Health Maintenance
--- OUTSIDE RECORDS SUMMARY | 2024-09-14 12:09 | XMS_ITS | Encounter Summary ---
Author Organization [facility] Address [address] [place] [address] Care Team Providers Care Fire Protection Designer Name Role Phone Unavailable Primary Care Provider Unavailabl e Prior Encounters Date Type Department Care Team Description 01/13/2022 Travel 01/13/2022 11:30 AM [facility] Office Visit [facility] [address], [address] [phone] Rodney Monae, SELINA 09/30/2021 10:15 AM [facility] Office Visit [facility] [address], [address] [address] Ada García DDS 09/30/2021 Travel 09/30/2021 10:00 AM [facility] Office Visit [facility] [address], [address] [address] 09/10/2019 Converted CPS Chart Documents [facility] [address], [address] [address] <No scans attached> 09/10/2019 Converted 13x Documents [facility] [address], [address] [address] <No scans attached> Plan of Treatment Not on file Procedures Procedure Name Priority Date/Time Associated Diagnosis Comments OCCLUSAL GUARD ? HARD APPLIANCE, FULL ARCH Routine 01/13/2022 11:30 AM [facility] OCCLUSAL GUARD ? HARD APPLIANCE, FULL ARCH Routine 09/30/2021 10:15 AM MST INTRAORAL PHOTO Routine 09/30/2021 10:15 AM MST INTRAORAL PHOTO Routine 09/30/2021 10:15 AM MST INTRAORAL PHOTO Routine 09/30/2021 10:15 AM MST INTRAORAL PHOTO Routine 09/30/2021 10:15 AM MST BITEWINGS - FOUR RADIOGRAPHIC IMAGES Routine 09/30/2021 10:15 AM MST ADDITIONAL X-RAY Routine 09/30/2021 10:1 5 AM MST ADDITIONAL X-RAY Routine 09/30/2021 10:1 5 AM MST ADDITIONAL X-RAY Routine 09/30/2021 10:1 5 AM MST ADDITIONAL X-RAY Routine 09/30/2021 10:1 5 AM MST ADDITIONAL X-RAY Routine 09/30/2021 10:1 5 AM [facility] SINGLE X-RAY Routine 09/30/2021 10:15 AM [facility] PERIODIC ORAL EVALUATION - ESTABLISHED PATIENT Routine 09/30/2021 10:15 AM BETO LR ANTIBACT IRR/QUAD Routine 09/30/2021 10:00 AM [facility] PERIO MAINTENANCE Routine 09/30/2021 10: 00 AM [facility] ORAL HYGIENE INSTRUCTIONS Routine 2021 10:00 AM [facility] TOPICAL APPLICATION OF FLUORIDE VARNISH Routine 09/30/2021 10:00 AM BETO UR ANTIBACT IRR/QUAD Routine 09/30/2021 10:00 AM BETO LL ANTIBACT IRR/QUAD Routine 09/30/2021 10:00 AM [facility] UL ANTIBACT IRR/QUAD Routine 09/30/2021 10:00 AM [facility] DENTAL PLAN ENROLL 1 Routine 12/16/2020 12:00 AM [facility] PERIODIC ORAL EVALUATION - ESTABLISHED PATIENT Routine 12/15/2020 12:00 AM MST PERIO MAINTENANCE Routine 12/15/2020 12: 00 AM MST ORAL HYGIENE INSTRUCTIONS Routine 2020 12:00 AM [facility] 1 STACY DECON Routine 12/15/2020 12:00 AM [facility] 1 FM IRR W/PERIO MAINT Routine 12:00 AM MST TOPICAL APPLICATION OF FLUORIDE VARNISH Routine 12/15/2020 12:00 AM MST BITEWINGS - FOUR RADIOGRAPHIC IMAGES Routine 12/15/2020 12:00 AM MST MISSED APPOINTMENT Routine 10/13/2020 1: 00 AM MST PERIO MAINTENANCE Routine 06/09/2020 12: 00 AM MST ORAL HYGIENE INSTRUCTIONS Routine 2019 12:00 AM MST 1 FM IRR W/PERIO MAINT Routine 0 12:00 AM MST TOPICAL APPLICATION OF FLUORIDE VARNISH Routine 06/09/2020 12:00 AM MST PERIODIC ORAL EVALUATION - ESTABLISHED PATIENT Routine 02/11/2020 12:00 AM MST PERIO MAINTENANCE Routine 02/11/2020 12: 00 AM MST ORAL HYGIENE INSTRUCTIONS Routine 2019 12:00 AM MST 1 FM IRR W/PERIO MAINT Routine 0 12:00 AM MST TOPICAL APPLICATION OF FLUORIDE VARNISH Routine 02/11/2020 12:00 AM MST BITEWINGS - FOUR RADIOGRAPHIC IMAGES Routine 02/11/2020 12:00 AM MST MISSED APPOINTMENT Routine 09/24/2019 1: 00 AM MST OCCLUSAL GUARD DELIVERY Routine 06/07/20 12:00 AM MST OCCLUSAL GUARD ? SOFT APPLIANCE, FULL ARCH Routine 06/01/2019 12:00 AM MST COMPREHENSIVE ORAL EVALUATION - NEW OR ESTABLISHED PATIENT Routine 06/01/2019 12:00 AM MST ORAL HYGIENE INSTRUCTIONS Routine 2018 12:00 AM MST ORAL HYGIENE INSTRUCTIONS Routine 2018 12:00 AM [facility] LL PERIODONTAL SCALING AND ROOT PLANING - ONE TO THREE TEETH PER QUADRANT Routine 06/01/2019 12:00 AM MST PROPHYLAXIS - ADULT Routine 06/01/2019 1 2:00 AM MST PANORAMIC RADIOGRAPHIC IMAGE Routine 06/01/2019 12:00 AM MST INTRAORAL - COMPREHENSIVE SERIES OF RADIOGRAPHIC IMAGES Routine 06/01/2019 12:00 AM MST INTRAORAL PHOTO Routine 06/01/2019 12:00 AM MST INTRAORAL PHOTO Routine 06/01/2019 12:00 AM MST INTRAORAL PHOTO Routine 06/01/2019 12:00 AM MST INTRAORAL PHOTO Routine 06/01/2019 12:00 AM [facility] Visit Diagnoses Not on file
[2024-09-14 12:18] LABS: Folate 7.7 ng/mL (> or = 4.0); Vitamin B12 812 pg/mL (200-900)
[2024-09-14 13:32] LABS: Alanine Aminotransferase 26 U/L (0-31); Albumin Level 4.5 g/dL (3.5-5.0); Anion Gap 14 (12-20); Aspartate Amino Transferase 20 U/L (5-31); Bilirubin Total 0.5 mg/dL (0.0-1.0); Blood Urea Nitrogen 25 mg/dL (9-16); Calcium 10.4 mg/dL (8.4-10.2); Carbon Dioxide 26 mmol/L (22-29); Chloride 106 mmol/L (96-108); Estimated Glomerular Filt Rate 58; Glucose Random 84 mg/dL (60-115); Magnesium 2.1 mg/dL (1.6-2.6); Sodium 142 mmol/L (135-145); Total Protein 7.5 g/dL (6.5-8.0)
[2024-09-14 14:20] LABS: Alkaline Phosphatase 110 U/L (39-117)
[2024-09-18 09:18] LABS: Lamotrigine Lamictal 7.6 mcg/mL (2.5-15.0)
[2024-09-18 15:33] LABS: Vitamin D 25-OH, D2 6 ng/mL; Vitamin D 25-OH, D3 52 ng/mL; Vitamin D 25-OH, Total 58 ng/mL (30-100)
== END 2024-09-14 10:38 | disposition home or self-care (01) ==
LOC: HO.LAB 10:37
PROVIDERS: PCP Family Medicine; Visit Provider Nurse Practitioner Family
DX: E03.9 Hypothyroidism, unspecified (principal); R53.83 Other fatigue; R20.2 Paresthesia of skin; E55.9 Vitamin D deficiency, unspecified
CPT/HCPCS: 36415; 80053; 80175; 82306; 82607; 82746; 83735; 84443; 85025

== ENCOUNTER 2024-10-01 10:04 | Outpatient (AMB) | payer MEDICARE, SELFPAY ==
--- NOTE | 2024-10-01 10:04 | MHC.OFFVIS ---
Vital Signs 10/01/24 10:06 Height 6 ft Weight 172 lb BMI 23.3 BP 117/53 L Blood Pressure Location Lt brachial Position Sitting Respiration 15 Pulse 76 Pulse Source Pulse Oximeter Pulse Oximetry (%) 100 Oxygen Delivery Method Room Air Intake Visit Reasons: 1 month FU [employer] Travel Counselor Required: No Allergies dihydroergotamine Allergy (Severe, Verified 10/01/24 10:07) Vomiting erythromycin base Adverse Reaction (Intermediate, Verified 10/01/24 10:07) n/v NSAIDS (Non-Steroidal Anti-Inflamma Adverse Reaction (Intermediate, Verified 10/01/24 10:07) Stomach Upset reglan Adverse Reaction (Severe, Uncoded 10/01/24 10:07) Unknown Medication List - Last Reconciled 10/01/24 by Tash Villeda LPN amitriptyline 50 mg PO BEDTIME 30 days atorvastatin 80 mg PO DAILY donepezil 10 mg PO DAILY 90 days gabapentin 300 mg PO TID hydroxyzine pamoate (Vistaril) 50 mg PO BEDTIME lamotrigine 200 mg PO BID levothyroxine 100 mcg PO DAILY memantine 5 mg PO BID ondansetron HCl 4 mg PO Q4H PRN 30 days prazosin 4 mg PO QPM trazodone 400 mg PO BEDTIME zolmitriptan (Zomig) 5 mg PO Q2-4H PRN 30 days zolpidem 10 mg PO BEDTIME 30 days HPI HPI 1 month FU: Details: History of Present Illness The patient is a 64-year-old female presenting with chronic pain for evaluation. This pain has persisted without relief and was stated to be at a level of 7/8 in severity. Initial management involved trialing Memantine, starting at 5 mg nightly for two weeks, followed by 5 mg twice daily for the next two weeks. No pain relief was observed with this regimen. The plan involved titrating to 15 mg per day to assess further benefit. There were no adverse effects from the Memantine therapy. Additionally, attempts to adjust device settings for pain management have been largely ineffective, with worsened outcomes at higher settings. Pain Description - Onset: Persistent chronic pain - Severity: Reported as 7/8 - Quality and Character: Not specified - Primary Location: Original site of pain, not clearly specified - Exacerbating Factors: Increased device settings - Relieving Factors: - Interference with Activities: Not explicitly stated Pain Management - Affect: Ongoing pain without complete relief affecting the patient's wellbeing. - Analgesia: Memantine trial underway; no current relief with increased doses. - Adverse Effects: None reported for Memantine. - Activities of Daily Living: Chronic pain persists; ongoing trial to assess impact. - Aberrant Drug-Related Behaviors: None reported or discussed. [facility] Medical History Bipolar disorder Anxiety HLD (hyperlipidemia) Hypothyroidism Depression Memory difficulties Kidney stones GERD (gastroesophageal reflux disease) Surgical History History of back surgery H/O foot surgery Hx of tonsillectomy History of ankle surgery Family History Father Cancer of adrenal gland High blood pressure High cholesterol Migraines Mother High cholesterol High blood pressure Diabetes Pulmonary fibrosis Social History Household Members Other:: lives alone Are you a primary personal care service provider to a significant other at home: No Do you presently have visiting nurse or other home services: No Unable to assess alcohol history related to: Unknown Alcohol intake: never Patient Tobacco Use Status: Never used Tobacco Substance Use Type: Marijuana Physical Exam Vital Signs: Last Vital Signs Pulse 76 10/01/24 10:06 Resp 15 10/01/24 10:06 BP 117/53 L 10/01/24 10:06 Pulse Ox 100 10/01/24 10:06 Oxygen Delivery Method Room Air 10/01/24 10:06 BMI result Body Mass Index 23.3 Assessment & Plan Assessment & Plan (1) Nerve root and plexus disorder, unspecified: Code(s): G54.9 - Nerve root and plexus disorder, unspecified Category: Medical (2) Complex regional pain syndrome I, unspecified: Comment: right torso status post DRG stimulation implant Code(s): G90.50 - Complex regional pain syndrome I, unspecified Category: Medical Qualifiers: Complex regional pain syndrome affected site: unspecified Qualified Code(s): G90.50 - Complex regional pain syndrome I, unspecified Plan Plan The therapeutic approach to the patient's chronic pain involves increasing the Memantine dosage to 15 mg daily. A lack of noticeable improvement may lead to trialing low-dose Naltrexone. Prescription management will accommodate travel arrangements to ensure medication availability. Patient was informed and verbally consented to the use of an ambient scribe for clinic note documentation during this visit. Discussion Notes In our discussion, we talked about the current pain management regimen with Memantine, including the plan to titrate to a higher dose if symptoms permit. We acknowledged no adverse effects from Memantine and instructed the patient regarding dosing adjustments. An alternative trial of low-dose Naltrexone was discussed as a potential future step should current efforts prove insufficient. We advised against frequent alterations to device settings due to observed exacerbation of symptoms. Patient Instructions - Continue Memantine as prescribed, increasing to 15 mg as directed. - Keep track of medication for when traveling. - Contact the office to redirect prescription refills if pharmacy details change. - Report any adverse reactions or increased pain experienced during treatment. - Avoid making frequent adjustments to the device's settings. - Consider alternative treatment options if no improvement with current regimen. Medications: Changed From memantine 5 mg PO BID 60 tabs 0RF To memantine 5 mg PO TID 90 tabs 0RF Coding Level of Care Code Est Pt Level 3 (23712) Diagnoses Nerve root and plexus disorder, unspecified G54.9 Complex regional pain syndrome type 1, affecting unspecified site G90.50 Complex regional pain syndrome affected site: unspecified
[2024-10-01 10:06] VITALS: BP 117/53; PULSE 76; RESP 15; O2SAT 100; BMI 23.3
== END 2024-10-01 10:19 | disposition home or self-care (01) ==
PROVIDERS: PCP Family Medicine; Visit Provider Internal Medicine
DX: G54.9 Nerve root and plexus disorder, unspecified (principal); G90.50 Complex regional pain syndrome I, unspecified
CPT/HCPCS: 99213

== ENCOUNTER → 2024-10-01 10:04 | Outpatient (BNVA) | payer MEDICARE, SELFPAY | PROVIDERS: PCP Family Medicine; Visit Provider Internal Medicine | DX: G54.9 Nerve root and plexus disorder, unspecified (principal); G90.50 Complex regional pain syndrome I, unspecified; Z79.899 Other long term (current) drug therapy | CPT/HCPCS: 99212 ==

== ENCOUNTER 2024-12-07 10:46 | Outpatient (REF) | payer MEDICARE, SELFPAY ==
--- NOTE | ~2024-12-07 | XR_ITS ---
EXAMINATION: XR LUMBOSACRAL SPINE CLINICAL INFORMATION: G90.50 - Complex regional pain syndrome I, unspecified COMPARISON: July 25, 2024. TECHNIQUE: Single AP view of the lumbar spine. FINDINGS: There is a metallic spinal canal reservoir to the left L2-3 vertebral bodies with the electrode leads overlapping the T12-L1 and T9-10 vertebral bodies. No lytic or blastic lesions. Hypertrophy of the facet joints at L5-S1. XR/XR lumbar spine 1V IMPRESSION: Spondylosis L5-S1. No change in the appearance of the spinal canal stimulator device. Electronically signed by: Denys Frey MD 12/07/2024 11:48 AM EDT
--- OUTSIDE RECORDS SUMMARY | 2024-12-07 12:24 | XMS_ITS | Clinical Summary ---
Author Organization [facility] ity Address [address] [place] [address] Care Team Providers Care Pin Ticket Machine Operator Name Role Phone Unavailable Primary Care Provider [...]
--- OUTSIDE RECORDS SUMMARY | 2024-12-07 12:24 | XMS_ITS | Clinical Summary ---
Author Organization [facility] Address [address] [place] [address] Care Team Providers Care Placer Miner Name Role Phone Unavailable Primary Care Provider [...] PERIO MAINTENANCE Routine 09/30/2021 10: 00 AM [facility] PANORAMIC RADIOGRAPHIC IMAGE Routine 06/01/2019 12:00 AM [facility] PERIODONTAL SCALING AND ROOT PLANING - ONE TO THREE TEETH PER QUADRANT Routine 06/01/2019 12:00 AM [facility] INTRAORAL - COMPREHENSIVE SERIES OF RADIOGRAPHIC IMAGES Routine 06/01/2019 12:00 AM [facility] from Last 3 Months or Most Recently Relevant to Health Maintenance
--- OUTSIDE RECORDS SUMMARY | 2024-12-07 12:24 | XMS_ITS | Data Portability ---
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 Plan of Treatment Reminders Order Date Submit Date Provider Last Modified By Organization Details Last Modified Time Details Appointments None recorded . Lab lipid panel, serum 2020 021 [facility], [address], [place], [address], 10:29:20 CMP, serum or plasma 2020 021 [email or web address] [facility], [address], [address], [place], [address], 10:29:20 unlisted lab - T4 free,TSH 2020 021 [email or web address] [facility], [address], [place], [address], 10:29:19 TSH + free T4, serum 2019 020 [facility], [address], [place], [address], 0 23:32:13 lipids, total, serum 2019 020 [facility], [address], [place], [address], 0 23:32:14 CMP, serum or plasma 2019 020 [facility], [address], [place], [address], 0 23:32:13 Referral physical therapis t referral 2019 020 [facility] [address], [place], [address], 0 15:10:[address] referral 2019 020 ATHENAFAX Not available 0 14:40:07 Procedures colonosc opy procedur e (PROC) 2020 021 clinarez Not available 1 15:29:50 upper endoscop y procedur e (EGD) (PROC) 2020 021 [email or web address] Not available 1 16:30:11 Surgeries None recorded . Imaging None recorded . Medication Orders ProAir HFA 90 mcg/actu ation aerosol inhaler 2020 021 [facility][id number], [address], [place], [id number], 1 17:11:37 levothyr oxine 100 mcg tablet 2020 021 [facility] #03407, [address], [place], [id number], 1 17:11:37 NuLYTELY with Flavor Packs 420 gram oral solution 2020 [facility]90839, [address], [place], [id number], 16:58:19 cycloben zaprine 5 mg tablet 2019 020 [facility], [address], [place], [id number], 16:57:20 Patient TargetsNo targets recorded. Patient Instructions Encounter Date Encounter Id Patient Instructions Last Modified By Organization Details Last Modified Time 03/11/2020 [id number] advance care planning: care instructions [email or web address] Not [...] Exam [email or web address] Not available 03/11/2020 13:48:21 09/03/2020 [id number] advance directives: care instructions [email or web address] Not available 09/03/2020 19:25:08 01/23/2021 [id number] advance care planning: care instructions [email or web address] Not available 01/23/2021 13:45:21 A healthy lifestyle: care instructions [facility] Not available 01/23/2021 13:45:21 preventing falls: care [facility] available 01/23/2021 13:45:21 COUNSELING & COORDINATION [...] Dental Care {{Yes* No N/A}}: Eye Exam [facility] Not available 01/22/2021 22:21:35 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 4 For patie nts >49 years of age, the refer ence limit for Creat inine is appro x 13% highe r for peopl e ident ified as Afric an-Am niurka n. Not Available [facility] [address], [place], [address], 03/11/2020 23:32:13 03/11/2003/11/2020 CMP, serum or plasm a egfraa 88 mL/mi n/1.7 3m2 Not Available [facility] [address], [place], [address], 03/11/2020 23:32:13 03/11/2003/11/2020 CMP, serum or plasm [...] Available [facility] [address], [place], [address], 03/11/2020 23:32:13 03/11/20 20 03/11/2020 CMP, serum or plasm a BUN/crea 22 ratio 10-28 Not Available [facility] [address], [place], [address], 03/11/2020 23:32:13 03/11/20 20 03/11/2020 CMP, serum or plasm a tbil 0.2 mg/dL 0.2-1. 3 Not Available [facility] [address] [place], [address], 03/11/2020 23:32:13 03/11/2003/11/2020 CMP, serum or plasm a AST 29 U/L 14-36 Not Available [facility] [address] [place], [address], 03/11/2020 23:32:13 03/11/2003/11/2020 CMP, serum or plasm a ALT 31 U/L 9-52 Not Available [facility] [address] [place], [address], 03/11/2020 23:32:13 03/11/2003/11/2020 CMP, serum or plasm a ALKP 79 U/L 40-129 Not Available [facility] [address] [place], [address], 03/11/2020 23:32:13 03/11/2003/11/2020 CMP, serum or plasm a Ca 9.8 mg/dL 8.3-10 .4 Not Available [facility] [address] [place], [address], 03/11/2020 23:32:13 03/11/2003/11/2020 CMP, serum or plasm a Na 139 mmol/ L 135-14 5 Not Available [facility] [address] [place], [address], 03/11/2020 23:32:13 03/11/2003/11/2020 CMP, serum or plasm a K 4.2 mmol/ L 3.5-5. 2 Not Available [facility] [address] [place], [address], 03/11/2020 23:32:13 03/11/2003/11/2020 CMP, serum or plasm a cL 107 mmol/ L 96-110 Not Available [facility] [address] [place], [address], 03/11/2020 23:32:13 03/11/20 20 03/11/2020 CMP, serum or plasm a CO2 25 mmol/ L 22-30 Not Available [facility] [address] [place], [address], 03/11/2020 23:32:13 03/11/2003/11/2020 CMP, serum or plasm a TP 6.3 g/dL 6.3-8. 2 Not Available [facility] [address] [place], [address], 03/11/2020 23:32:13 03/11/2003/11/2020 CMP, serum or plasm a alb 3.8 g/dL 3.5-5. 0 Not Available [facility] [address] [place], [address], 03/11/2020 23:32:13 03/11/2003/11/2020 CMP, serum or plasm a glob 2.5 g/dL 2.0-3. 7 Not Available [facility] [address] [place], [address], 03/11/2020 23:32:13 03/11/2003/11/2020 CMP, serum or plasm a Ag 1.5 ratio 1.0-2. 4 Not Available [facility] [address] [place], [address], 03/11/2020 23:32:13 03/11/2003/11/2020 CMP, serum or plasm a agap 7 mmol/ L 4-18 Not Available [facility] [address] [place], [address], 03/11/2020 23:32:13 03/11/2003/11/2020 TSH + free T4, serum FT4 1.4 NG/dL 0.8-1. 7 Not Available [facility] [address] [place], [address], 03/11/2020 23:32:13 03/11/2003/11/2020 TSH + free T4, serum TSH <0.02 mIU/L 0.45-4 .50 low Not Available [facility] [address] [place], [address], 03/11/2020 23:32:13 03/11/2003/11/2020 lipid s, total , serum trig 183 mg/dL <150 high Zaira l: <150 mg/dL Borde rline High: 150-1 99 mg/dL High: 200-4 99 mg/dL Very High: great er than or equal to 500 mg/dL Not Available [facility] [address] [place], [address], 03/11/2020 23:32:14 03/11/20 20 03/11/2020 lipid s, total , serum chol 160 mg/dL <200 Antoinette able: <200 mg/dL Borde rline High: 200-2 39 mg/dL High: great er than or equal to 240 mg/dL Not Available [facility] [address] [place], [address], 03/11/2020 23:32:14 03/11/20 20 03/11/2020 lipid s, total , serum HDL 78 mg/dL >=46 Not Available [facility] [address] [place], [address], 03/11/2020 23:32:14 03/11/20 20 03/11/2020 lipid s, total , serum LDLC 45 mg/dL <=129 Targe t for non-H DL gavin stero l is 30 mg/dL highe r than LDL gavin stero l targe t. Not Available [facility] [address] [place], [address], 03/11/2020 23:32:14 03/11/20 20 03/11/2020 lipid s, total , serum chol/HDL 2.1 ratio <=4.4 Not Available [facility] [address] [place], [address], 03/11/2020 23:32:14 03/11/20 20 03/11/2020 lipid s, total , serum LDL/HDL 0.6 ratio >0.4 Not Available [facility] [address] [place], [address], 03/11/2020 23:32:14 03/11/20 20 03/11/2020 lipid s, total , serum VLDL 37 mg/dL <=29 high Not Available [facility] [address] [place], [address], 03/11/2020 23:32:14 05/07/20 21 05/07/2021 T4 FREE, TSH TSH, high sensitivity 0.77 mU/L 0.45 - 4.50 Not Available [facility], [address], [address], 05/08/2021 00:39:16 05/07/20 21 05/07/2021 T4 FREE, TSH T4 free non-dialysis 1.2 NG/dL 0.8 - 1.7 Not Available [facility] [address] [place] [address], [address], 05/08/2021 00:39:16 05/07/20 21 05/07/2021 COMPR EHENS DANIELA METAB OLIC PANEL glucose 89 mg/dL 65 - 99 Gluco se refer ence range refle cts fasti ng state . Not Available [facility] [address] [place] [address], [address], 05/08/2021 00:39:16 05/07/20 21 05/07/2021 COMPR EHENS DANIELA METAB OLIC PANEL urea nitrogen (BUN) 15 mg/dL 7 - 28 Not Available [facility] [address] [place] [address], [address], 05/08/2021 00:39:16 05/07/20 21 05/07/2021 COMPR EHENS DANIELA METAB OLIC PANEL creatinine 1.46 mg/dL 0.60 - 1.40 high Not Available [facility] [address] [place] [address], [address], 05/08/2021 00:39:16 05/07/20 21 05/07/2021 COMPR EHENS DANIELA METAB OLIC PANEL GFR estimated (non-) 38 mL/mi n/1.7 3m2 >=60 low Not Available [facility] [address] [place] [address], [address], 05/08/2021 00:39:16 05/07/20 21 05/07/2021 COMPR EHENS DANIELA METAB OLIC PANEL GFR estimated () 44 mL/mi n/1.7 3m2 >=60 low Not Available [facility] [address] [place] [address], [address], 05/08/2021 00:39:16 05/07/20 21 05/07/2021 COMPR EHENS DANIELA METAB OLIC PANEL BUN/creatini ne ratio 10.3 10.0 - 28.0 Not Available [facility] [address] [place] [address], [address], 05/08/2021 00:39:16 05/07/2005/07/2021 COMPR EHENS DANIELA METAB OLIC PANEL sodium 141 mmol/ L 135 - 145 Not Available [facility] [address] [place] [address], [address], 05/08/2021 00:39:16 05/07/2005/07/2021 COMPR EHENS DANIELA METAB OLIC PANEL potassium 4.8 mmol/ L 3.6 - 5.3 Not Available [facility] [address] [place] [address], [address], 05/08/2021 00:39:16 05/07/20 21 05/07/2021 COMPR EHENS DANIELA METAB OLIC PANEL chloride 105 mmol/ L 95 - 109 Not Available [facility] [address] [place] [address], [address], 05/08/2021 00:39:16 05/07/20 21 05/07/2021 COMPR EHENS DANIELA METAB OLIC PANEL carbon dioxide (co2) 24 mmol/ L 20 - 31 Not Available [facility] [address] [place] [address], [address], 05/08/2021 00:39:16 05/07/20 21 05/07/2021 COMPR EHENS DANIELA METAB OLIC PANEL anion gap 12 4 - 18 Not Available [facility] [address] [place] [address], [address], 05/08/2021 00:39:16 05/07/20 21 05/07/2021 COMPR EHENS DANIELA METAB OLIC PANEL protein, total 6.8 g/dL 6.0 - 7.7 Not Available [facility] [address] [place] [address], [address], 05/08/2021 00:39:16 05/07/20 21 05/07/2021 COMPR EHENS DANIELA METAB OLIC PANEL albumin 4.2 g/dL 3.8 - 5.1 Not Available [facility] [address] [place] [address], [address], 05/08/2021 00:39:16 05/07/20 21 05/07/2021 COMPR EHENS DANIELA METAB OLIC PANEL globulin 2.6 g/dL 1.9 - 3.7 Not Available [facility] [address] [place] [address], [address], 05/08/2021 00:39:16 05/07/20 21 05/07/2021 COMPR EHENS DANIELA METAB OLIC PANEL albumin/glob ulin ratio 1.6 1.0 - 2.5 Not Available [facility] [address] [place] [address], [address], 05/08/2021 00:39:16 05/07/20 21 05/07/2021 COMPR EHENS DANIELA METAB OLIC PANEL calcium 10.1 mg/dL 8.7 - 10.4 Not Available [facility] [address] [place] [address], [address], 05/08/2021 00:39:16 05/07/20 21 05/07/2021 COMPR EHENS DANIELA METAB OLIC PANEL alkaline phosphatase 91 IU/L 42 - 146 Not Available [facility] [address] [place] [address], [address], 05/08/2021 00:39:16 05/07/20 21 05/07/2021 COMPR EHENS DANIELA METAB OLIC PANEL alanine aminotransfe rase 25 IU/L 5 - 46 Not Available [facility] [address] [place] [address], [address], 05/08/2021 00:39:16 05/07/20 21 05/07/2021 COMPR EHENS DANIELA METAB OLIC PANEL aspartate aminotransfe rase 21 IU/L 11 - 40 Not Available [facility] [address] [place] [address], [address], 05/08/2021 00:39:16 05/07/20 21 05/07/2021 COMPR EHENS DANIELA METAB OLIC PANEL bilirubin, total 0.5 mg/dL <=1.3 Not Available [facility] [address] [place] [address], [address], 05/08/2021 00:39:16 05/07/20 21 05/07/2021 LIPID PANEL cholesterol 199 mg/dL <=199 Not Available [facility], [address], [address], 05/08/2021 00:39:17 05/07/20 21 05/07/2021 LIPID PANEL triglyceride 72 mg/dL <=149 Not Available [facility] [employer], [facility] [address] [place] [address], [address], 05/08/2021 00:39:17 05/07/20 21 05/07/2021 LIPID PANEL cholesterol/ HDL ratio 1.9 <=4.4 Not Available [facility], [facility] [address] [place] [address], [address], 05/08/2021 00:39:17 05/07/20 21 05/07/2021 LIPID PANEL HDL cholesterol 107 mg/dL >=50 Not Available [facility], [facility] [address] [place] [address], [address], 05/08/2021 00:39:17 05/07/20 21 05/07/2021 LIPID PANEL non-HDL cholesterol 92 mg/dL <=129 Not Available [facility], [facility] [address] [place] [address], [address], 05/08/2021 00:39:17 05/07/20 21 05/07/2021 LIPID PANEL [...] n 2004; 110:2 27-23 9. Not Available [facility] [address] [place] [address], [address], 05/08/2021 00:39:17 05/07/20 21 05/07/2021 LIPID PANEL VLDL cholesterol 16 mg/dL <=29 Not Available [facility] [address], [address], 05/08/2021 00:39:17 06/12/2006/12/2021 BASIC METAB OLIC PANEL W/EGF R glucose 83 mg/dL 70 - 99 Gluco se refer ence range refle cts fasti ng state . Note: New refer ence range effec tive 2020. Not Available [facility] [address] [place] [address], [address], 06/12/2021 15:21:15 06/12/2006/12/2021 BASIC METAB OLIC PANEL W/EGF R urea nitrogen (BUN) 10 mg/dL 7 - 28 Not Available [facility], [facility] [address] [place] [address], [address], 06/12/2021 15:21:15 06/12/2006/12/2021 BASIC METAB OLIC PANEL W/EGF R creatinine 1.28 mg/dL 0.60 - 1.40 Not Available [facility], [facility] [address] [place] [address], [address], 06/12/2021 15:21:15 06/12/2006/12/2021 BASIC METAB OLIC PANEL W/EGF R GFR estimated (non-) 44 mL/mi n/1.7 3m2 >=60 low Not Available [facility], [facility] [address] [place] [address], [address], 06/12/2021 15:21:15 06/12/2006/12/2021 BASIC METAB OLIC PANEL W/EGF R GFR estimated () 52 mL/mi n/1.7 3m2 >=60 low Not Available [facility], [facility] [address] [place] [address], [address], 06/12/2021 15:21:15 06/12/2006/12/2021 BASIC METAB OLIC PANEL W/EGF R BUN/creatini ne ratio 7.8 10.0 - 28.0 low Not Available [facility], [address], [address], 06/12/2021 15:21:15 06/12/2006/12/2021 BASIC METAB OLIC PANEL W/EGF R sodium 142 mmol/ L 135 - 145 Not Available [facility] [address] [place] [address], [address], 06/12/2021 15:21:15 06/12/2006/12/2021 BASIC METAB OLIC PANEL W/EGF R potassium 4.8 mmol/ L 3.6 - 5.3 Not Available [facility], [address], [address], 06/12/2021 15:21:15 06/12/2006/12/2021 BASIC METAB OLIC PANEL W/EGF R chloride 108 mmol/ L 95 - 109 Not Available [facility], [facility] [address] [place] [address], [address], 06/12/2021 15:21:15 06/12/20 21 06/12/2021 BASIC METAB OLIC PANEL W/EGF R carbon dioxide (co2) 25 mmol/ L 20 - 31 Not Available [facility] [address] [place] [address], [address], 06/12/2021 15:21:15 06/12/20 21 06/12/2021 BASIC METAB OLIC PANEL W/EGF R anion gap 9 4 - 18 Not Available [facility], [address], [address], 06/12/2021 15:21:15 06/12/20 21 06/12/2021 BASIC METAB OLIC PANEL W/EGF R calcium 10.0 mg/dL 8.7 - 10.4 Not Available [facility], [address] [place], [address], 06/12/2021 15:21:15 03/05/20 19 03/05/2019 MAMMO riyag, bilat eral No observ ation record ed. [email or web address] [facility] [address], [place], [address], 03/06/2019 13:31:10 03/24/20 20 03/24/2020 MAMMO riyag, bilat eral No observ ation record ed. strtonia [facility] [address], [place], [address], 03/24/2020 18:10:04 12/31/19 21 12/29/2020 MRI, brain + brain stem, w/wo contr ast No observ ation record ed. [facility] [place] [address] [place], [address], 01/23/2021 13:45:11 Result Notes None recorded. Problems Name Problem SNOMED Code Status Onset Date Resolution Date Notes Provider Name and Address Organization Details Recorded Time Bipolar disorder 59536955 Active 2017 Not Available [facility] 11:19:06 Hyperlipid emia 88347626 Active 2017 Not Available [facility] 2 11:19:06 Chronic post-traum atic stress disorder 412015798 Active 2017 Not Available [facility] 2 11:19:06 Migraine 39105870 Active 2017 Not Available [facility] 2 11:19:06 Hypothyroi dism 53977593 Active 2018 Not Available [facility] 2 11:19:06 Asthma 198519385 Active 2018 Not Available [facility] 2 11:19:06 Multiple personalit y disorder 83861642 Active 2018 Not Available [facility] 2 11:19:06 History of traumatic brain injury 025916770279 00 Active 2018 x 3, most recent in 2016 Not Available [facility] 2 11:19:06 History of Rea's esophagus 749414332153 57149 Active 2020 Not Available [facility] 2 11:19:06 Notes:Anxiety (Active); Note s: Medical [...] Recorded Time 01/24/20 21 [facility] 13:33:40 01/24/20 21 AWE 5-10 Year Plan - Female completed Loly Wilson MD [address], [place], [address], [facility] 01/23/2021 13:47:46 01/24/20 21 Mini-COG completed Loly Wilson MD [address], [place], [address], [facility] 01/23/2021 13:47:57 01/24/20 21 PHQ-9 completed Loly Wilson MD [address], [place], [address], [facility] 01/23/2021 13:40:24 03/11/20 20 Visual Acuity completed Loly Wilson MD [address], [place], [address], [facility] 03/11/2020 14:03:40 03/11/20 20 AWE 5-10 Year Plan - Female completed Loly Wilson MD [address], [place], [address], [facility] 03/11/2020 14:02:39 03/11/20 20 Mini-COG completed Loly Wilson MD [address], [place], [address], [facility] 03/11/2020 14:03:10 03/11/20 20 PHQ-9 completed Loly Wilson MD [address], [place], [address], [facility] 03/11/2020 14:03:35 03/11/20 20 Fall Risk Screening Tool completed Loly Wilson MD [address], [place], [address], [facility] 03/11/2020 14:02:49 08/22/19 17 Colonoscopy completed Janneth Godfrey [facility] 09/04/2018 17:49:38 08/22/19 16 Colonoscopy completed Laura Fabian MD [address], [place], [address], [facility] 09/06/2020 12:31:38 08/22/18 78 [facility]/18[facility] 18:24:43 Imaging Results Imaging Date Name Status LastModified by Organiz ation Details LastModified Time 03/05/2019 MAMMO, screening, [facility] [address], [place], [address], 03/06/2019 13:31:10 03/24/2020 MAMMO, screening, bilateral completed striste [facility] [address], [place], [address], 03/24/2020 18:10:04 12/29/2020 MRI, brain + brain stem, w/wo contrast completed keanu [facility] [place] [address] [place], [address], 01/23/2021 13:45:11 Procedure Notes None recorded. Medical Equipment None Reported. Allergies Allergen ID Allergen Name Allergen Category Reaction Reaction Severity Criticality Documentation Date Start Date Code Code System Note Provider Name and Address Organization Details Recorded Time 020405 prasteron e medicatio n Not available Not available Not available 10/20/[address] [facility] 8 10:46:58 159016 Reglan medicatio n Not available Not available Not available 10/20/2017 9230 RxNorm Not Available [facility] [employer] 8 10:46:58 087416 erythromy ajit medicatio n Not available Not available Not available 10/20/2017 4053 RxNorm Not Available [facility] 8 10:46:58 903819 Non-stero idal anti-infl ammatory agent (product) medicatio n Not available Not available Not available 09/03/2020 52993 005 SNOMED Dayana Shant [facility] 19:11:44 Medications Name Sig Start Date Stop [...] Available Not Available Not Available Afluria Quad 5284-0858 (PF) 60 mcg (15 mcg x 4)/0.5 [...] Not Available Vitals Date Recorded Body height Body mass index (BMI) Body weight Pain severity - 0-10 verbal numeric rating [Score] - Reported Body temperature Heart rate Oxygen saturation Oxygen saturation in Arterial blood by Pulse oximetry Systolic blood pressure Diastolic blood pressure Provider Name and Address Organization Details Last Updated DateTime 9 182.88 cm 23.4 kg/m2 05903.9 9 g 4 98.3 [degF] 64 /min 99 % 99 % 110 mm[Hg] 68 mm[Hg] Janneth Poleviyum a [facility] 9 17:03:21 Date Recorded Body height Body mass index (BMI) Body weight Pain severity - 0-10 verbal numeric rating [Score] - Reported Body temperature Heart rate Oxygen saturation Oxygen saturation in Arterial blood by Pulse oximetry Systolic blood pressure Diastolic blood pressure Provider Name and Address Organization Details Last Updated DateTime 0 182.88 cm 23.9 kg/m2 73496.9 6 g 4 97.5 [degF] 72 /min 97 % 97 % 112 mm[Hg] 72 mm[Hg] Janneth paredes [facility] 0 13:35:14 Date Recorded Body height Body mass index (BMI) Body weight Body temperature Heart rate Oxygen saturation Oxygen saturation in Arterial blood by Pulse oximetry Systolic blood pressure Diastolic blood pressure Provider Name and Address Organization Details Last Updated DateTime 1 182.88 cm 24.2 kg/m2 18412.5 4 g 99.6 [degF] 69 /min 99 % 99 % 92 mm[Hg] 62 mm[Hg] Dayana Shant [facility] 1 18:51:21 Date Recorded Body height Body mass index (BMI) Body weight Pain severity - 0-10 verbal numeric rating [Score] - Reported Body temperature Heart rate Oxygen saturation Oxygen saturation in Arterial blood by Pulse oximetry Systolic blood pressure Diastolic blood pressure Provider Name and Address Organization Details Last Updated DateTime 1 182.88 cm 23.8 kg/m2 34456.7 6 g 0 97.5 [degF] 75 /min 98 % 98 % 110 mm[Hg] 72 mm[Hg] Janneth paredes [facility] 1 17:03:21 Date Recorded Body height Body mass index (BMI) Body weight Body temperature Heart rate Oxygen saturation Oxygen saturation in Arterial blood by Pulse oximetry Systolic blood pressure Diastolic blood pressure Provider Name and Address Organization Details Last Updated DateTime 1 182.88 cm 24.6 kg/m2 70318.6 2 g 97.8 [degF] 87 /min 97 % 97 % 110 mm[Hg] 60 mm[Hg] Shahrzad Adrian [facility] 1 13:34:51 Social History Question Answer Notes LastModified by Organizat ion Details LastModified Time Tobacco Smoking Status Never Smoker Teri Maciel,PEARL [facility] 11/18/2017 18:15:33 Do You Have An Advance Directive? Yes [email or web address] Information not available 11/18/2017 What Is Your Level Of Alcohol Consumption? None [email or web address] Information not available 11/18/2017 What Is Your Level Of Caffeine Consumption? Occasional [email or web address] Information not available 11/18/2017 How Much Tobacco Do You Chew? None [email or web address] Information not available 02/01/2019 Are You Currently Employed? No Information not available 10/14/2020 What Type Of Diet Are You Following? DIABETIC [email or web address] Information not available 11/18/2017 Which Illicit Or Recreational Drugs Have You Used? 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 No [email or web address] Information not available 11/18/2017 Live Alone Or [...] No Information not available 03/11/2020 Marital Status [email or web address] Informat ion not available 11/18/2017 What Was The Date Of Your Most Recent Tobacco Screening? 01/23/2021 [email or web address] Information not available 01/23/2021 How Many Children Do You Have? 0 clinarez Information not available 09/03/2020 Are You Sexually Active? No [email or web address] Information not available 11/18/2017 Smoke Alarm In Home Yes [email or web address] Information not available 11/18/2017 How Much Tobacco Do You Smoke? No [email or web address] Information not available 02/01/2019 General Stress Level High [email or web address] Information not available 11/18/2017 Do You Use Sunscreen Routinely? Yes [email or web address] Information not available 11/18/2017 Has Tobacco Cessation Counseling Been Provided? Yes Information not available 03/11/2020 On What Date Was Tobacco Cessation Counseling Provided? 01/23/2021 [email or web address] Information not available 01/23/2021 Sex: Unknown Functional Status Question Answer Note LastModified by Organizat ion Details LastModified Time Are you able to care for yourself? Yes Information not available 10/14/2020 What is your exercise level? Occasional [email or web address] Information not available 11/18/2017 Mental Status None recorded. Family History Relationship Description Onset Age of this Age Resolved Age Notes LastModified by Organization Details LastModified Time Father Malignant tumor of adrenal gland 84 [email or web address] Not available 2020 12:29:19 Mother Hypertensive disorder [email or web address] Not available 18:20:40 Mother Hypercholest erolemia [email or web address] Not available 18:21:07 Mother Heart disease aortic [...] N Breast Problem (Breast Lump/Pain/Dischar ge) N High Blood Pressure (Hypertension) N Recurrent Abdominal Pain N Otitis Media N Intestinal Disorder N Ear/Hearing Problems N Back/Neck Pain Y ADD N Allergy to Insect Bites N GERD/Reflux/Heart Burn Y Depression Y Pneumonia N Recurrent Otitis Media N High Cholesterol (Hyperlipidemia) N Allergies/Hay Fever N Nose and Throat Problems N Headaches/Migraines Y Delay in Walking N [...] zoster, unspecified formulation 0 completed PEARL Garcia [facility] 06/02/2020 19:14:49 COVID-19, mRNA, LNP-S, PF, 30 mcg/0.3 mL dose 1 completed Shahrzad Adrian [facility] 01/23/2021 13:30:37 COVID-19, mRNA, LNP-S, PF, 30 mcg/0.3 mL dose 1 completed Shahrzad Adrian [facility] 01/23/2021 13:31:05 Influenza,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
--- OUTSIDE RECORDS SUMMARY | 2024-12-07 12:24 | XMS_ITS | Encounter Summary ---
Author Organization [facility] Address [address] [place] [address] Care Team Providers Care Evp General Counsel Name Role Phone Unavailable Primary Care Provider Unavailabl e Prior Encounters Date Type Department Care Team Description 01/13/2022 Travel 01/13/2022 11:30 AM [facility] Office Visit [facility] [address], [address] [phone] Rodney Monae, SELINA 09/30/2021 10:15 AM [facility] Office Visit [facility] [address], [address] [address] Ada García DDS 09/30/2021 Travel 09/30/2021 10:00 AM [facility] Office Visit [facility] [address], [address] [address] 09/10/2019 Converted CPS Chart Documents [facility] [address], [address] [address] <No scans attached> 09/10/2019 Converted 13x Documents [facility] [address], [address] [address] <No scans attached> Plan of Treatment Not on file Procedures Procedure Name Priority Date/Time Associated Diagnosis Comments OCCLUSAL GUARD ? HARD APPLIANCE, FULL ARCH Routine 01/13/2022 11:30 AM [facility] OCCLUSAL GUARD ? HARD APPLIANCE, [...] ADDITIONAL X-RAY Routine 09/30/2021 10:1 5 AM [facility] SINGLE X-RAY Routine 09/30/2021 10:15 AM [facility] PERIODIC ORAL EVALUATION - ESTABLISHED PATIENT Routine 09/30/2021 10:15 AM [facility] ANTIBACT IRR/QUAD Routine 09/30/2021 10:00 AM [facility] PERIO MAINTENANCE Routine 09/30/2021 10: 00 AM [facility] ORAL HYGIENE INSTRUCTIONS Routine 2021 10:00 AM [facility] TOPICAL APPLICATION OF FLUORIDE VARNISH Routine 09/30/2021 10:00 AM [facility] ANTIBACT IRR/QUAD Routine 09/30/2021 10:00 AM [facility] ANTIBACT IRR/QUAD Routine 09/30/2021 10:00 AM [facility] UL ANTIBACT IRR/QUAD Routine 09/30/2021 10:00 AM [facility] DENTAL PLAN ENROLL 1 Routine 12/16/2020 12:00 AM [facility] PERIODIC ORAL EVALUATION - ESTABLISHED PATIENT Routine 12/15/2020 12:00 AM [facility] PERIO MAINTENANCE Routine 12/15/2020 12: 00 AM [facility] ORAL HYGIENE INSTRUCTIONS Routine 2020 12:00 AM [facility] 1 STACY DECON Routine 12/15/2020 12:00 AM [facility] 1 FM IRR W/PERIO MAINT [...] ORAL HYGIENE INSTRUCTIONS Routine 2018 12:00 AM [facility] LL PERIODONTAL SCALING AND ROOT [...] MST INTRAORAL PHOTO Routine 06/01/2019 12:00 AM [facility] Visit Diagnoses Not on file
--- OUTSIDE RECORDS SUMMARY | 2024-12-07 12:24 | XMS_ITS | Continuity of Care Document ---
Author Organization [facility] Address [address] [address] Phone Care Team Providers Care Antenna Installer Name Role Phone [facility] Unavailable Humera vailable Procedures Procedure Date REVISION OF UPPER EYELID REVISION OF UPPER EYELID REMOVE EYELID LESION Advance Directives Directive Yes / No Effective Date File Name No Information Encounters Encounter Description Practice Location Reason(s) For Visit Diagnoses Date Provider Providers Copied on Encounter [facility], [address] [place] [address], [id number], tel:[phone] [facility] No Information [facility]. [address] [place] [address], [id number]. tel:[phone] Referring Provider: Alexandrea bethea MD, [address] [place] [address], [id number]. tel:[phone] Family History Family Member Type Diagnosis Age At Onset No Information Payers Payer name Insurance type Covered constitution party ID Authoriza tion(s) [facility] CI [id number] Social History Type Description Quantity Date Captured [...]
== END 2024-12-07 10:47 | disposition home or self-care (01) ==
LOC: HO.XRAY 10:46
PROVIDERS: PCP Family Medicine; Visit Provider Internal Medicine
DX: G90.59 Complex regional pain syndrome I of other specified site (principal)
CPT/HCPCS: 72020; 99212

== ENCOUNTER 2024-12-07 10:46 | Outpatient (AMB) | payer MEDICARE, SELFPAY ==
[2024-12-07 10:50] VITALS: BP 123/58; PULSE 67; RESP 16; O2SAT 99; BMI 23.2
--- NOTE | 2024-12-07 10:50 | A.OFFVIS_ITS ---
Vital Signs 12/07/24 10:50 Height 6 ft Weight 171 lb BMI 23.2 BP 123/58 L Blood Pressure Location Lt brachial Position Sitting Respiration 16 Pulse 67 Pulse Source Pulse Oximeter Pulse Oximetry (%) 99 Oxygen Delivery Method Room Air Intake Visit Reasons: FU per patient request Food Stylist Required: No Allergies dihydroergotamine Allergy (Severe, Verified 12/07/24 10:51) Vomiting erythromycin base Adverse Reaction (Intermediate, Verified 12/07/24 10:51) n/v NSAIDS (Non-Steroidal Anti-Inflamma Adverse Reaction (Intermediate, Verified 12/07/24 10:51) Stomach Upset reglan Adverse Reaction (Severe, Uncoded 12/07/24 10:51) Unknown HPI HPI FU per patient request: Details: History of Present Illness The patient is a 64-year-old female presenting with chronic low back pain. The pain predominately resides in the low back and has been ongoing with significant impact on daily activities, such as driving. Initially, there was some relief from a device trial aimed at reducing sensitivity, but this has diminished over time. An x-ray in July showed slight displacement of the device; however, it was still operational. The patient was previously labeled with Complex Regional Pain Syndrome (CRPS) for insurance purposes, even though the symptom location is atypical. It was also previously termed a nerve root disorder due to the involvement suggestive of nerve implication without major nerve involvement due to the anatomical gaston xt, with predominantly small nerves involved. Trips, including one to [place] that increased her physical activity, resulted in variable pain levels. Recent assessments indicate less effectiveness of the current treatment, prompting discussions around alternate interventions, including an intrathecal pain pump. Pain Description - Onset: Has been present for a prolonged period. - Quality: Described as persistent with significant discomfort and discouragement. - Location: Primarily low back region. - Radiation: Not specified. - Aggravating Factors: Driving and fluctuations with increased activity. - Alleviating Factors: Increased movement provides some relief, though minimal. - Activities Interference: Pain significantly impacts driving and general daily functioning. Physical Exam Results - X-ray (July): Showed minor displacement of device, still within operational range. Pain Management - Affect: Pain causes significant discouragement and impacts the patient's mood. - Analgesia: Erratic relief from current treatment; new consideration of low- dose naltrexone. - Adverse Effects: Not explicitly discussed in the conversation. - Activities of Daily Living: Driving is difficult; pain severely impacts everyday functioning. - Aberrant Drug Related Behaviors: Not observed or reported in the conversation. PFSH Medical History Bipolar disorder Anxiety HLD (hyperlipidemia) Hypothyroidism Depression Memory difficulties Kidney stones GERD (gastroesophageal reflux disease) Surgical History History of back surgery H/O foot surgery Hx of tonsillectomy History of ankle surgery Family History Father Cancer of adrenal gland High blood pressure High cholesterol Migraines Mother High cholesterol High blood pressure Diabetes Pulmonary fibrosis Social History Household Members Other:: lives alone Are you a primary out of school hours care worker to a significant other at home: No Do you presently have visiting nurse or other home services: No Unable to assess alcohol history related to: Unknown Alcohol intake: never Patient Tobacco Use Status: Never used Tobacco Substance Use Type: Marijuana Physical Exam Vital Signs: Last Vital Signs Pulse 67 12/07/24 10:50 Resp 16 12/07/24 10:50 BP 123/58 L 12/07/24 10:50 Pulse Ox 99 12/07/24 10:50 Oxygen Delivery Method Room Air 12/07/24 10:50 BMI result Body Mass Index 23.2 Assessment & Plan Assessment & Plan (1) Complex regional pain syndrome I, unspecified: Comment: right torso status post DRG stimulation implant Code(s): G90.50 - Complex regional pain syndrome I, unspecified Category: Medical Qualifiers: Complex regional pain syndrome affected site: unspecified Qualified Code(s): G90.50 - Complex regional pain syndrome I, unspecified Plan Plan - Arrange for a current x-ray to check device placement. - Stop memantine; begin low-dose naltrexone. - Consider a new trial of an intrathecal pain pump, explaining the process and medication options. - Advise patient to contact [employer] support for additional programming options. - Discuss potential transition from current pain management devices if ineffectiveness persists. Patient was informed and verbally consented to the use of an ambient scribe for clinic note documentation during this visit. Discussion Notes During the consultation, I discussed with the patient the chronic nature of her low back pain and the challenges presented by its atypical nature viz a viz CRPS. I explained the rationale for potentially transitioning from her current device to an intrathecal pain pump, which could deliver targeted medication directly into the spine. The patient expressed interest in this option, and I outlined the procedure, including a required trial phase with single-shot spinal injection to assess efficacy. We reviewed stopping memantine and switching to low-dose naltrexone through [facility], which may help manage her pain symptoms differently. I explained the importance of re-evaluating the x-ray results to ensure the device has not migrated further, which could compromise its function. I also provided guidance regarding adjustments to the device's programs and encouraged having open channels with her device care team to enhance the current therapy's effectiveness, pending further assessment. Patient Instructions - Obtain a new x-ray to check the device's current position. - Discontinue memantine and start low-dose naltrexone as outlined. - Contact the device support team for potential new programming settings. - Follow up via email if there are any changes or questions after the x-ray results. - Discuss the results of spacial programming efforts with Edward or support once the x-ray confirms the device's status. Orders: Orders XR lumbar spine 1V 12/07/24 G90.50 - Complex regional pain syndrome I, unspecified Coding Level of Care Code Est Pt Level 4 (12231) Diagnoses Complex regional pain syndrome type 1, affecting unspecified site G90.50 Complex regional pain syndrome affected site: unspecified
--- OUTSIDE RECORDS SUMMARY | 2024-12-07 11:48 | XMS_ITS | Clinical Summary ---
Author Organization [facility] ity Address [address] [place] [address] Care Team Providers Care Magneto Electrician Name Role Phone Unavailable Primary Care Provider Unavailabl e Social History Tobacco Use Types Packs/Day Years Used Date Smoking Tobacco: Never Assessed Comments Unknown Sex and Gender Information Value Date Recorded Sex Assigned at Not on file Legal Sex Female 3:50 PM EDT Gender Identity Not on file Sexual Orientation Not on file Plan of Treatment Health Maintenance Due Date Last Done Comments Breast Cancer Screening 1960 DTaP,Tdap,and Td Vaccines (1 - Tdap) 1977 Pneumococcal Vaccine: 50+ Ye ars (1 of 1 - PCV) 2008 Zoster Vaccines (1 of 2) 2008 COVID-19 Vaccine ( - 2023-2 5 season) 2024 Influenza Vaccine (Season Ended) 2025 RSV Immunization Adult Patie nts (1 - 1-dose 75+ series) 2033 HIB [...] patient's age to complete this topic Meningococcal B Vaccine Aged Out No l onger eligible based on patient's age to complete this topic RSV Immunization Patients Un meenu 20 months Aged Out No longer eligible b ased on patient's age to complete this topic Varicella Vaccines Aged Out No longer eligible based on patient's age to complete this topic
--- OUTSIDE RECORDS SUMMARY | 2024-12-07 11:48 | XMS_ITS | Encounter Summary ---
Author Organization [facility] Address [address] [place] [address] Care Team Providers Care Plaster Mixer Name Role Phone Unavailable Primary Care Provider Unavailabl e Prior Encounters Date Type Department Care Team Description 01/13/2022 Travel 01/13/2022 11:30 AM [facility] Office Visit [facility] [address], [address] [phone] Rodney Monae, SELINA 09/30/2021 10:15 AM [facility] Office Visit [facility] [address], [address] [phone] Ada García DDS 09/30/2021 Travel 09/30/2021 10:00 AM [facility] Office Visit [facility] [address], [address] [address] 09/10/2019 Converted CPS Chart Documents [facility] [address], [address] [phone] <No scans attached> 09/10/2019 Converted 13x Documents [facility] [address], [address] [phone] <No scans attached> Plan of Treatment Not on file Procedures Procedure Name Priority Date/Time Associated Diagnosis Comments OCCLUSAL GUARD ? HARD APPLIANCE, FULL ARCH Routine 01/13/2022 11:30 AM [facility] OCCLUSAL GUARD ? HARD APPLIANCE, FULL ARCH [...] ADDITIONAL X-RAY Routine 09/30/2021 10:1 5 AM [facility] SINGLE X-RAY Routine 09/30/2021 10:15 AM [facility] PERIODIC ORAL EVALUATION - ESTABLISHED PATIENT Routine 09/30/2021 10:15 AM [facility] ANTIBACT IRR/QUAD Routine 09/30/2021 10:00 AM [facility] PERIO MAINTENANCE Routine 09/30/2021 10: 00 AM [facility] ORAL HYGIENE INSTRUCTIONS Routine 2021 10:00 AM [facility] TOPICAL APPLICATION OF FLUORIDE VARNISH Routine 09/30/2021 10:00 AM [facility] UR ANTIBACT IRR/QUAD Routine 09/30/2021 10:00 AM [facility] ANTIBACT IRR/QUAD Routine 09/30/2021 10:00 AM [facility] UL ANTIBACT IRR/QUAD Routine 09/30/2021 10:00 AM [facility] DENTAL PLAN ENROLL 1 Routine 12/16/2020 12:00 AM [facility] PERIODIC ORAL EVALUATION - ESTABLISHED PATIENT Routine 12/15/2020 12:00 AM [facility] PERIO MAINTENANCE Routine 12/15/2020 12: 00 AM [facility] ORAL HYGIENE INSTRUCTIONS Routine 2020 12:00 AM [facility] 1 STACY DECON Routine 12/15/2020 12:00 AM [facility] 1 FM IRR W/PERIO MAINT Routine 12:00 [...] ORAL HYGIENE INSTRUCTIONS Routine 2018 12:00 AM [facility] LL PERIODONTAL SCALING AND ROOT PLANING - [...] MST INTRAORAL PHOTO Routine 06/01/2019 12:00 AM [facility] Visit Diagnoses Not on file
--- OUTSIDE RECORDS SUMMARY | 2024-12-07 11:48 | XMS_ITS | Continuity of Care Document ---
Author Organization [facility] Address [address] [address] Phone Care Team Providers Care Patient Attendant Name Role Phone [facility] Unavailable Humera vailable Procedures Procedure Date REVISION OF UPPER EYELID REVISION OF UPPER EYELID REMOVE EYELID LESION Advance Directives Directive Yes / No Effective Date File Name No Information Encounters Encounter Description Practice Location Reason(s) For Visit Diagnoses Date Provider Providers Copied on Encounter [facility], [address] [place] [address], [id number], tel:[phone] [facility] No Information [facility]. [address] [place] [address], [id number]. tel:[phone] Referring Provider: Alexandrea bethea MD, [address] [place] [address], [id number]. tel:[phone] Family History Family Member Type Diagnosis Age At Onset No Information Payers Payer name Insurance type Covered alliance party ID Authoriza tion(s) [facility] CI [id number] Social History Type Description Quantity Date Captured [...]
--- OUTSIDE RECORDS SUMMARY | 2024-12-07 11:48 | XMS_ITS | Clinical Summary ---
Author Organization [facility] Address [address] [place] [address] Care Team Providers Care Concrete Bucket Loader Name Role Phone Unavailable Primary Care Provider [...] 05/22 Dental X-Ray: Panoramic 04/05/2023 04/04/2020, 06/01 Meningococcal B Vaccine Aged Out No l onger eligible based on patient's age to complete this topic Procedures Procedure Name Priority Date/Time Associated Diagnosis Comments PERIODIC ORAL EVALUATION - ESTABLISHED PATIENT Routine 09/30/2021 10:15 AM [facility] PERIO MAINTENANCE Routine 09/30/2021 10: 00 AM [facility] PANORAMIC RADIOGRAPHIC IMAGE Routine 06/01/2019 12:00 AM [facility] PERIODONTAL SCALING AND ROOT PLANING - ONE TO THREE TEETH PER QUADRANT Routine 06/01/2019 12:00 AM [facility] INTRAORAL - COMPREHENSIVE SERIES OF RADIOGRAPHIC IMAGES Routine 06/01/2019 12:00 AM [facility] from Last 3 Months or Most Recently Relevant to Health Maintenance
== END 2024-12-07 11:15 | disposition home or self-care (01) ==
LOC: HO.PMC 10:47
PROVIDERS: PCP Family Medicine; Visit Provider Internal Medicine
DX: G90.50 Complex regional pain syndrome I, unspecified (principal)
CPT/HCPCS: 99214

== ENCOUNTER → 2024-12-07 11:23 | Outpatient (BNV) | payer MEDICARE, SELFPAY | PROVIDERS: PCP Family Medicine; Visit Provider Radiology Diagnostic Radiology | DX: G90.50 Complex regional pain syndrome I, unspecified (principal) | CPT/HCPCS: 72020 ==

== ENCOUNTER → 2024-12-20 10:46 | Outpatient (BNVA) | payer MEDICARE, SELFPAY | PROVIDERS: PCP Family Medicine; Visit Provider Internal Medicine ==

== ENCOUNTER 2025-01-18 09:59 | Outpatient (AMB) | payer MEDICARE, SELFPAY ==
--- NOTE | 2025-01-18 10:09 | MHC.OFFVIS ---
Vital Signs 01/18/25 10:10 Weight 166 lb BP 118/69 Blood Pressure Location Lt brachial Position Sitting Pulse 65 Pulse Source Pulse Oximeter Pulse Oximetry (%) 100 Oxygen Delivery Method Room Air Intake Visit Reasons: 1 Month Follow Up Patient Request Allergies dihydroergotamine Allergy (Severe, Verified 01/18/25 10:09) Vomiting erythromycin base Adverse Reaction (Intermediate, Verified 01/18/25 10:09) n/v NSAIDS (Non-Steroidal Anti-Inflamma Adverse Reaction (Intermediate, Verified 01/18/25 10:09) Stomach Upset reglan Adverse Reaction (Severe, Uncoded 01/18/25 10:09) Unknown Medication List - Last Reconciled 01/18/25 by Tash Villeda LPN amitriptyline 50 mg PO BEDTIME 30 days atorvastatin 80 mg PO DAILY donepezil 10 mg PO DAILY 90 days gabapentin 300 mg PO TID hydroxyzine pamoate (Vistaril) 50 mg PO BEDTIME lamotrigine 200 mg PO BID levothyroxine 100 mcg PO DAILY memantine 5 mg PO TID naltrexone (Naltrex) mg PO ondansetron HCl 4 mg PO Q4H PRN 30 days prazosin 4 mg PO QPM trazodone 400 mg PO BEDTIME zolmitriptan (Zomig) 5 mg PO Q2-4H PRN 30 days zolpidem 10 mg PO BEDTIME 30 days HPI HPI 1 Month Follow Up Patient Request: Details: History of Present Illness The patient is a 64-year-old female presenting with inadequate relief from a dorsal lumbar stimulator implanted to address Chronic Regional Pain Syndrome (CRPS). Following its implantation on May 23, attempts at various programming settings failed to improve her symptoms. The patient has documented multiple changes consolidated on December 03, December 17, and December 20 but with no notable effectiveness. Concerns revolve around poor communication and understanding of her stimulator settings. She describes her pain as unmanaged, negatively affecting daily activities like driving and walking, causing significant frustration. In the past, certain stimulations provided transient morning relief but ceased by noon. A trial of turning off the stimulator for four days yielded no difference in pain levels. There's discussion on transitioning from current stimulation to potential alternatives like traditional spinal cord stimulator or low-dose naltrexone, which she commenced recently. Adjustments to the naltrexone dose are ongoing, yet its impact remains to be seen. Pain Description - Onset & Timing: Chronic, persisting beyond the initial stimulator implantation in May. - Quality & Character: Unalleviated pain with sporadic morning relief. - Primary Location: Lumbar region. - Radiation: Not explicitly stated. - Aggravating Factors: Ineffectively programmed stimulator, physical activity, incorrect signal transmission. - Alleviating Factors: Momentary relief observed before noon, unrelated to intervention; low-dose naltrexone trial in progress. - Interfered Activities: Driving, walking, overall mobility. Physical Exam - Appears afebrile. - Alert and oriented. - Mood and affect appropriate. - Follows and participates in conversation appropriately. - Respiratory effort is unlabored. Results - MRI noted to be completed (detailed results not discussed in the conversation). Pain Management - Affect: Pain continues to be problematic, leading to frustration. - Analgesia: Current usage of low-dose naltrexone, titrating up; ineffective stimulator programming. - Adverse Effects: None specified; overall ineffectiveness of current treatments noted. - Activities of Daily Living: Pain impacts mobility, driving, and walking. - Aberrant Drug-Related Behaviors: No concerns identified. [facility] Medical History Bipolar disorder Anxiety HLD (hyperlipidemia) Hypothyroidism Depression Memory difficulties Kidney stones GERD (gastroesophageal reflux disease) Surgical History History of back surgery H/O foot surgery Hx of tonsillectomy History of ankle surgery Family History Father Cancer of adrenal gland High blood pressure High cholesterol Migraines Mother High cholesterol High blood pressure Diabetes Pulmonary fibrosis Social History Household Members Other:: lives alone Are you a primary daycare director to a significant other at home: No Do you presently have visiting nurse or other home services: No Unable to assess alcohol history related to: Unknown Alcohol intake: never Patient Tobacco Use Status: Never used Tobacco Substance Use Type: Marijuana Physical Exam Vital Signs: Last Vital Signs Pulse 65 01/18/25 10:10 BP 118/69 01/18/25 10:10 Pulse Ox 100 01/18/25 10:10 Oxygen Delivery Method Room Air 01/18/25 10:10 Assessment & Plan Assessment & Plan (1) Complex regional pain syndrome I, unspecified: Comment: right torso status post DRG stimulation implant Code(s): G90.50 - Complex regional pain syndrome I, unspecified Category: Medical Qualifiers: Complex regional pain syndrome affected site: unspecified Qualified Code(s): G90.50 - Complex regional pain syndrome I, unspecified Plan Plan - Plan to explore explantation of the current ineffective stimulator, with possible trial of traditional dorsal column SCS options. - Continue titration of low-dose naltrexone to observe therapeutic effect. - Schedule for potential interventions and review in the coming months based on patient's engagement and response to current management. Patient was informed and verbally consented to the use of an ambient scribe for clinic note documentation during this visit. Discussion Notes During our conversation, the patient and I discussed the current ineffectiveness of her dorsal lumbar stimulator. Options considered included traditional spinal cord stimulation. The patient was informed about the procedure of explantation and subsequent trial, including risks, benefits, and a typical timeline, which could extend over several months. I reassured her there is no urgent need to expedite this plan, and it will follow after attempts with low-dose naltrexone are maximized and evaluated, emphasizing no need to alter personal plans or obligations providing flexibility. We discussed the potential pain relief mechanics of naltrexone and the gradual titration she can undertake this summer. Patient Instructions - Consider keeping activity levels consistent and avoid major changes in routine unless the treatment results in noticeable improvement. - Follow the titration instructions for low-dose naltrexone as discussed. - Monitor for any side effects from new medications. - Plan a potential procedure timeline around personal commitments and with consideration for future interventions. - Return for further evaluation post-summer to reassess treatment effectiveness and next steps. Coding Level of Care Code Est Pt Level 3 (62525) Diagnoses Complex regional pain syndrome type 1, affecting unspecified site G90.50 Complex regional pain syndrome affected site: unspecified
[2025-01-18 10:10] VITALS: BP 118/69; PULSE 65; O2SAT 100
--- OUTSIDE RECORDS SUMMARY | 2025-01-18 10:31 | XMS_ITS | Data Portability ---
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 Plan of Treatment Reminders Order Date Submit Date Provider Last Modified By Organization Details Last Modified Time Details Appointments None recorded . Lab lipid panel, serum 2020 021 [email or web address] [facility], [address], [place], [address], 10:29:20 CMP, serum or plasma 2020 021 [facility], [facility] [address], [place], [address], 10:29:20 unlisted lab - T4 free,TSH 2020 021 [email or web address] [facility], [facility] [employer] [address], [place], [address], 10:29:19 TSH + free T4, serum 2019 020 [facility], [address], [place], [address], 0 23:32:13 lipids, total, serum 2019 020 [facility], [address], [place], [address], 0 23:32:14 CMP, serum or plasma 2019 020 [facility], [address], [place], [address], 0 23:32:13 Referral physical therapis t referral 2019 020 ATHENAFAX [facility] [address], [place], [address], 0 15:10:[address] referral 2019 020 ATHENAFAX Not available 0 14:40:07 Procedures colonosc opy procedur e (PROC) 2020 021 clin[facility] Not available 1 15:29:50 upper endoscop y procedur e (EGD) (PROC) 2020 021 [email or web address] Not available 1 16:30:11 Surgeries None recorded . Imaging None recorded . Medication Orders ProAir HFA 90 mcg/actu ation aerosol inhaler 2020 021 [facility][id number], [address], [place], [id number], 1 17:11:37 levothyr oxine 100 mcg tablet 2020 021 [facility] #[id number], [address], [place], [id number], 1 17:11:37 NuLYTELY with Flavor Packs 420 [id number], [address] [place], [place], [id number], 1 16:58:19 cycloben zaprine 5 mg tablet [address] [id number], [address], [place], [id number], 16:57:20 Patient TargetsNo targets recorded. Patient Instructions Encounter Date Encounter Id Patient Instructions Last Modified By Organization Details Last Modified Time 03/11/2020 [id number] advance care planning: care instructions [email or web address] Not available 03/11/2020 13:53:34 A healthy lifestyle: care instructions [email or web address] Not available 03/11/2020 13:53:34 preventing falls: care instructions [email or web address] Not available 03/11/2020 13:53:34 COUNSELING & COORDINATION of CARE Yes: Increase Exercise Yes: Encourage Weight Loss Yes: Decrease Fat N/A: Diabetic Patient Counseling N/A: Smoking Cessation N/A: Decrease Alcohol Yes: Decrease Salt Yes: Increase Fiber Yes: Increase H20 Yes: Counseled patient regarding Lab/Dx/need for follow-up Yes: Discussed medications, side effects, & compliance Yes: Dental Care Yes: Eye Exam [email or web address] Not available 03/11/2020 13:48:21 09/03/2020 [id number] advance directives: care instructions [email or web address] Not available 09/03/2020 19:25:08 01/23/2021 [id number] advance care planning: care instructions [email or web address] Not available 01/23/2021 13:45:21 A healthy lifestyle: care instructions [email or web address] Not available 01/23/2021 13:45:21 preventing falls: care instructions [email or web address] Not available 01/23/2021 13:45:21 COUNSELING & COORDINATION of CARE Yes: Increase Exercise Yes: Encourage Weight Loss Yes: Decrease Fat N/A: Diabetic Patient Counseling N/A: Smoking Cessation N/A: Decrease Alcohol Yes: Decrease Salt Yes: Increase Fiber Yes: Increase H20 Yes: Counseled patient regarding Lab/Dx/need for follow-up Yes: Discussed medications, side effects, & compliance Yes: Dental Care Yes: Eye Exam [email or web address] Not available 01/22/2021 22:21:35 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 Referral for Rea's esophagus h/o barretts esophagus and gerd Referring Physician: Loly Wilson [facility], Encounter Date: 03/11/2020 Physical Therapist Referral for Low back pain low back pain and unsteady gait, sometimes off balance Referring Physician: Loly [facility], Encounter Date: 03/11/2020 Results Created Date Observation Date Name Description Value Unit Range Abnormal Flag Note LastModifiedBy Organization Detail LastModifiedTime 03/11/2003/11/2020 CMP, serum or plasm a glu 103 mg/dL 70-100 high Not Available [facility] [address], [place], [address], 03/11/2020 23:32:13 03/11/20 20 03/11/2020 CMP, serum or plasm a BUN 18 mg/dL 8-25 Not Available [facility] [address], [place], [address], 03/11/2020 23:32:13 03/11/20 20 03/11/2020 CMP, serum or plasm a crea 0.8 mg/dL 0.6-1. 4 For patie nts >49 years of age, the refer ence limit for Creat inine is appro x 13% highe r for peopl e ident ified as Afric an-Am niurka n. Not Available [facility] [address], [place], [address], 03/11/2020 23:32:13 03/11/20 20 03/11/2020 CMP, serum or plasm a egfraa 88 mL/mi n/1.7 3m2 Not Available [facility] [address], [place], [address], 03/11/2020 23:32:13 03/11/20 20 03/11/2020 CMP, serum or plasm a egfrnaa 73 [...] Not Available [facility] [address] [place], [address], 03/11/2020 23:32:13 03/11/20 20 03/11/2020 CMP, serum or plasm a BUN/crea 22 ratio 10-28 Not Available [facility] [address] [place], [address], 03/11/2020 23:32:13 03/11/20 20 03/11/2020 CMP, serum or plasm a tbil 0.2 mg/dL 0.2-1. 3 Not Available [facility] [address], [place], [address], 03/11/2020 23:32:13 03/11/20 20 03/11/2020 CMP, serum or plasm a AST 29 U/L 14-36 Not Available [facility] [address], [place], [address], 03/11/2020 23:32:13 03/11/20 20 03/11/2020 CMP, serum or plasm a ALT 31 U/L 9-52 Not Available [facility] [address] [place], [address], 03/11/2020 23:32:13 03/11/20 20 03/11/2020 CMP, serum or plasm a ALKP 79 U/L 40-129 Not Available [facility] [address] [place], [address], 03/11/2020 23:32:13 03/11/20 20 03/11/2020 CMP, serum or plasm a Ca 9.8 mg/dL 8.3-10 .4 Not Available [facility] [address] [place], [address], 03/11/2020 23:32:13 03/11/20 20 03/11/2020 CMP, serum or plasm a Na 139 mmol/ L 135-14 5 Not Available [facility] [address] [place], [address], 03/11/2020 23:32:13 03/11/20 20 03/11/2020 CMP, serum or plasm a K 4.2 mmol/ L 3.5-5. 2 Not Available [facility] [address] [place], [address], 03/11/2020 23:32:13 03/11/20 20 03/11/2020 CMP, serum or plasm a cL 107 mmol/ L 96-110 Not Available [facility] [address] [place], [address], 03/11/2020 23:32:13 03/11/20 20 03/11/2020 CMP, serum or plasm a CO2 25 mmol/ L 22-30 Not Available [facility] [address] [place], [address], 03/11/2020 23:32:13 03/11/20 20 03/11/2020 CMP, serum or plasm a TP 6.3 g/dL 6.3-8. 2 Not Available [facility] [address] [place], [address], 03/11/2020 23:32:13 03/11/20 20 03/11/2020 CMP, serum or plasm a alb 3.8 g/dL 3.5-5. 0 Not Available [facility] [address] [place], [address], 03/11/2020 23:32:13 03/11/2003/11/2020 CMP, serum or plasm a glob 2.5 g/dL 2.0-3. 7 Not Available [facility] [address] [place], [address], 03/11/2020 23:32:13 03/11/2003/11/2020 CMP, serum or plasm a Ag 1.5 ratio 1.0-2. 4 Not Available [facility] [address] [place], [address], 03/11/2020 23:32:13 03/11/2003/11/2020 CMP, serum or plasm a agap 7 mmol/ L 4-18 Not Available [facility] [address] [place], [address], 03/11/2020 23:32:13 03/11/2003/11/2020 TSH + free T4, serum FT4 1.4 NG/dL 0.8-1. 7 Not Available [facility] [address] [place], [address], 03/11/2020 23:32:13 03/11/2003/11/2020 TSH + free T4, serum TSH <0.02 mIU/L 0.45-4 .50 low Not Available [facility] [address] [place], [address], 03/11/2020 23:32:13 03/11/2003/11/2020 lipid s, total , serum trig 183 mg/dL <150 high Zaira l: <150 mg/dL Gregg rline High: 150-1 99 mg/dL High: 200-4 99 mg/dL Very High: great er than or equal to 500 mg/dL Not Available [facility] [address] [place], [address], 03/11/2020 23:32:14 03/11/2003/11/2020 lipid s, total , serum chol 160 mg/dL <200 Antoinette able: <200 mg/dL Gregg rlhayder High: 200-2 39 mg/dL High: great er than or equal to 240 mg/dL Not Available [facility] [address] [place], [address], 03/11/2020 23:32:14 03/11/20 20 03/11/2020 lipid s, total , serum HDL 78 mg/dL >=46 Not Available [facility] [address] [place], [address], 03/11/2020 23:32:14 03/11/20 20 03/11/2020 lipid s, total , serum LDLC 45 mg/dL <=129 Targe t for non-H DL gavin stero l is 30 mg/dL highe r than LDL gavin stero l targe t. Not Available [facility] [address], [place], [address], 03/11/2020 23:32:14 03/11/20 20 03/11/2020 lipid s, total , serum chol/HDL 2.1 ratio <=4.4 Not Available [facility] [address] [place], [address], 03/11/2020 23:32:14 03/11/20 20 03/11/2020 lipid s, total , serum LDL/HDL 0.6 ratio >0.4 Not Available [facility] [address] [place], [address], 03/11/2020 23:32:14 03/11/20 20 03/11/2020 lipid s, total , serum VLDL 37 mg/dL <=29 high Not Available [facility] [address] [place], [address], 03/11/2020 23:32:14 05/07/20 21 05/07/2021 T4 FREE, TSH TSH, high sensitivity 0.77 mU/L 0.45 - 4.50 Not Available [facility] ([facility]) [address] [place] [address], [address], 05/08/2021 00:39:16 05/07/20 21 05/07/2021 T4 FREE, TSH T4 free non-dialysis 1.2 NG/dL 0.8 - 1.7 Not Available [facility] [address] [place] [address] [address], [place], [address], 05/08/2021 00:39:16 05/07/20 21 05/07/2021 COMPR EHENS DANIELA METAB OLIC PANEL glucose 89 mg/dL 65 - 99 Gluco se refer ence range refle cts fasti ng state . Not Available [facility] [address] [place] [address] 100, [place], [address], 05/08/2021 00:39:16 05/07/20 21 05/07/2021 COMPR EHENS DANIELA METAB OLIC PANEL urea nitrogen (BUN) 15 mg/dL 7 - 28 Not Available [facility] [address] [place] [address] 100, [place], [address], 05/08/2021 00:39:16 05/07/20 21 05/07/2021 COMPR EHENS DANIELA METAB OLIC PANEL creatinine 1.46 mg/dL 0.60 - 1.40 high Not Available [facility] [address] [place] [address], [place], [address], 05/08/2021 00:39:16 05/07/20 21 05/07/2021 COMPR EHENS DANIELA METAB OLIC PANEL GFR estimated (non-) 38 mL/mi n/1.7 3m2 >=60 low Not Available [facility] [address] [place] [address] 100, [place], [address], 05/08/2021 00:39:16 05/07/20 21 05/07/2021 COMPR EHENS DANIELA METAB OLIC PANEL GFR estimated () 44 mL/mi n/1.7 3m2 >=60 low Not Available [facility] [address] [place] [address] 100, [place], [address], 05/08/2021 00:39:16 05/07/20 21 05/07/2021 COMPR EHENS DANIELA METAB OLIC PANEL BUN/creatini ne ratio 10.3 10.0 - 28.0 Not Available [facility] [address] [place] [address], [place], [address], 05/08/2021 00:39:16 05/07/20 21 05/07/2021 COMPR EHENS DANIELA METAB OLIC PANEL sodium 141 mmol/ L 135 - 145 Not Available [facility] [address] [place] [address], [place], [address], 05/08/2021 00:39:16 05/07/20 21 05/07/2021 COMPR EHENS DANIELA METAB OLIC PANEL potassium 4.8 mmol/ L 3.6 - 5.3 Not Available [facility] [address] [place] [address], [place], [address], 05/08/2021 00:39:16 05/07/20 21 05/07/2021 COMPR EHENS DANIELA METAB OLIC PANEL chloride 105 mmol/ L 95 - 109 Not Available [facility] [address] [place] [address], [place], [address], 05/08/2021 00:39:16 05/07/20 21 05/07/2021 COMPR EHENS DANIELA METAB OLIC PANEL carbon dioxide (co2) 24 mmol/ L 20 - 31 Not Available [facility] [address] [place] [address], [place], [address], 05/08/2021 00:39:16 05/07/20 21 05/07/2021 COMPR EHENS DANIELA METAB OLIC PANEL anion gap 12 4 - 18 Not Available [facility] [address] [place] [address], [place], [address], 05/08/2021 00:39:16 05/07/20 21 05/07/2021 COMPR EHENS DANIELA METAB OLIC PANEL protein, total 6.8 g/dL 6.0 - 7.7 Not Available [facility] [address] [place] [address], [place], [address], 05/08/2021 00:39:16 05/07/20 21 05/07/2021 COMPR EHENS DANIELA METAB OLIC PANEL albumin 4.2 g/dL 3.8 - 5.1 Not Available [facility] [address] [place] [address], [place], [address], 05/08/2021 00:39:16 05/07/20 21 05/07/2021 COMPR EHENS DANIELA METAB OLIC PANEL globulin 2.6 g/dL 1.9 - 3.7 Not Available [facility] [address] [place] [address], [place], [address], 05/08/2021 00:39:16 05/07/20 21 05/07/2021 COMPR EHENS DANIELA METAB OLIC PANEL albumin/glob ulin ratio 1.6 1.0 - 2.5 Not Available [facility] [address] [address], [place], [address], 05/08/2021 00:39:16 05/07/20 21 05/07/2021 COMPR EHENS DANIELA METAB OLIC PANEL calcium 10.1 mg/dL 8.7 - 10.4 Not Available [facility] [address] [place] [address], [address], 05/08/2021 00:39:16 05/07/20 21 05/07/2021 COMPR EHENS DANIELA METAB OLIC PANEL alkaline phosphatase 91 IU/L 42 - 146 Not Available [facility] [address], [address], 05/08/2021 00:39:16 05/07/20 21 05/07/2021 COMPR EHENS DANIELA METAB OLIC PANEL alanine aminotransfe rase 25 IU/L 5 - 46 Not Available [facility] [address] [place] [address] 100, [place], [address], 05/08/2021 00:39:16 05/07/20 21 05/07/2021 COMPR EHENS DANIELA METAB OLIC PANEL aspartate aminotransfe rase 21 IU/L 11 - 40 Not Available [facility] [address] [place] [address] 100, [place], [address], 05/08/2021 00:39:16 05/07/20 21 05/07/2021 COMPR EHENS DANIELA METAB OLIC PANEL bilirubin, total 0.5 mg/dL <=1.3 Not Available [facility] [address] [place] [address] 100, [place], [address], 05/08/2021 00:39:16 05/07/20 21 05/07/2021 LIPID PANEL cholesterol 199 mg/dL <=199 Not Available [facility] [address] [place] [address] 100, [place], [address], 05/08/2021 00:39:17 05/07/20 21 05/07/2021 LIPID PANEL triglyceride 72 mg/dL <=149 Not Available [facility] [address] [place] [address] 100, [place], [address], 05/08/2021 00:39:17 05/07/20 21 05/07/2021 LIPID PANEL cholesterol/ HDL ratio 1.9 <=4.4 Not Available [facility] [address] [place] [address] 100, [place], [address], 05/08/2021 00:39:17 05/07/20 21 05/07/2021 LIPID PANEL HDL cholesterol 107 mg/dL >=50 Not Available [facility] [address] [place] [address] 100, [place], [address], 05/08/2021 00:39:17 05/07/20 21 05/07/2021 LIPID PANEL non-HDL cholesterol 92 mg/dL <=129 Not Available [facility] [address] [facility] [address], [place], [address], 05/08/2021 00:39:17 05/07/20 21 05/07/2021 LIPID PANEL LDL cholesterol, calculated 76 mg/dL <=99 LDL-C is calcu lated by using the Camille n-Hop kins equat ion. (BETY . 2013; 310(1 9):20 61-20 68) For moder ately high risk and high risk cardi ac patie nts, refer ence level s of <100 mg/dL and <70 mg/dL , respe ctive ly, roni d be consi dered . Circu latio n 2004; 110:2 27-23 9. Not Available [facility] [address] [facility] [address], [place], [address], 05/08/2021 00:39:17 05/07/20 21 05/07/2021 LIPID PANEL VLDL cholesterol 16 mg/dL <=29 Not Available [facility] [address] [facility] [address], [place], [address], 05/08/2021 00:39:17 06/12/20 21 06/12/2021 BASIC METAB OLIC PANEL W/EGF R glucose 83 mg/dL 70 - 99 Gluco se refer ence range refle cts fasti ng state . Note: New refer ence range effec tive 2020. Not Available [facility] [address] [facility] [address], [place], [address], 06/12/2021 15:21:15 06/12/20 21 06/12/2021 BASIC METAB OLIC PANEL W/EGF R urea nitrogen (BUN) 10 mg/dL 7 - 28 Not Available [facility] [address] [facility] [address], [place], [address], 06/12/2021 15:21:15 06/12/20 21 06/12/2021 BASIC METAB OLIC PANEL W/EGF R creatinine 1.28 mg/dL 0.60 - 1.40 Not Available [facility] [address] [place] [address], [place], [address], 06/12/2021 15:21:15 06/12/20 21 06/12/2021 BASIC METAB OLIC PANEL W/EGF R GFR estimated (non-) 44 mL/mi n/1.7 3m2 >=60 low Not Available [facility] [address] [place] [address], [place], [address], 06/12/2021 15:21:15 06/12/20 21 06/12/2021 BASIC METAB OLIC PANEL W/EGF R GFR estimated () 52 mL/mi n/1.7 3m2 >=60 low Not Available [facility] [address] [place] [address], [place], [address], 06/12/2021 15:21:15 06/12/20 21 06/12/2021 BASIC METAB OLIC PANEL W/EGF R BUN/creatini ne ratio 7.8 10.0 - 28.0 low Not Available [facility] [address] [place] [address], [place], [address], 06/12/2021 15:21:15 06/12/20 21 06/12/2021 BASIC METAB OLIC PANEL W/EGF R sodium 142 mmol/ L 135 - 145 Not Available [facility] [address] [place] [address], [place], [address], 06/12/2021 15:21:15 06/12/20 21 06/12/2021 BASIC METAB OLIC PANEL W/EGF R potassium 4.8 mmol/ L 3.6 - 5.3 Not Available [facility] [address] [place] [address], [place], [address], 06/12/2021 15:21:15 06/12/20 21 06/12/2021 BASIC METAB OLIC PANEL W/EGF R chloride 108 mmol/ L 95 - 109 Not Available [facility] [address] [place] [address], [place], [address], 06/12/2021 15:21:15 06/12/20 21 06/12/2021 BASIC METAB OLIC PANEL W/EGF R carbon dioxide (co2) 25 mmol/ L 20 - 31 Not Available [facility] [address] [place] [address] 100, [place], [address], 06/12/2021 15:21:15 06/12/20 21 06/12/2021 BASIC METAB OLIC PANEL W/EGF R anion gap 9 4 - 18 Not Available [facility] [address] [place] [address], [place], [address], 06/12/2021 15:21:15 06/12/20 21 06/12/2021 BASIC METAB OLIC PANEL W/EGF R calcium 10.0 mg/dL 8.7 - 10.4 Not Available [facility] [address] [place] [address], [place], [address], 06/12/2021 15:21:15 03/05/20 19 03/05/2019 MAMMO , riya mendoza, bilat eral No observ ation record ed. [email or web address] [facility] [address] [facility] [address], [place], [address], 03/06/2019 13:31:10 03/24/20 20 03/24/2020 MAMMO riya, bilat eral No observ ation record ed. [email or web address] [facility] [address] [facility] [address], [place], [address], 03/24/2020 18:10:04 12/31/19 21 12/29/2020 MRI, brain + brain stem, w/wo contr ast No observ ation record ed. [email or web address] [facility] [place] [address] [place], [address], 01/23/2021 13:45:11 Result Notes None recorded. Problems Name Problem SNOMED Code Status Onset Date Resolution Date Notes Provider Name and Address Organization Details Recorded Time Bipolar disorder 42078005 Active 2017 Not Available [facility] 2 11:19:06 Hyperlipid emia 99023222 Active 2017 Not Available [facility] 2 11:19:06 Chronic post-traum atic stress disorder 552986640 Active 2017 Not Available [facility] 2 11:19:06 Migraine 52246316 Active 2017 Not Available [facility] 2 11:19:06 Hypothyroi dism 41868193 Active 2018 Not Available [facility] 2 11:19:06 Asthma 969573481 Active 2018 Not Available [facility] 2 11:19:06 Multiple personalit y disorder 75263850 Active 2018 Not Available [facility] 2 11:19:06 History of traumatic brain injury 463646906138 00 Active 2018 x 3, most recent in 2015 Not Available [facility] 2 11:19:06 History of Rea's esophagus 941844683261 46345 Active 2020 Not Available [facility] 2 11:19:06 Notes:Anxiety (Active); Note s: Medical [...] Recorded Time 01/24/20 21 [facility] 13:33:40 01/24/20 21 AWE 5-10 Year Plan - Female completed Loly Wilson MD [address], [place], [address], [facility] 01/23/2021 13:47:46 01/24/20 21 Mini-COG completed Loly Wilson MD [address], [place], [address], [facility] 01/23/2021 13:47:57 01/24/20 21 PHQ-9 completed Loly Wilson MD [address], [place], [address], [facility] 01/23/2021 13:40:24 03/11/20 20 Visual Acuity completed Loly Wilson MD [address], [place], [address], [facility] 03/11/2020 14:03:40 03/11/20 20 AWE 5-10 Year Plan - Female completed Loly Wilson MD [address], [place], [address], [facility] 03/11/2020 14:02:39 03/11/20 20 Mini-COG completed Loly Wilson MD [address], [place], [address], [facility] 03/11/2020 14:03:10 03/11/20 20 PHQ-9 completed Loly Wilson MD [address], [place], [address], [facility] 03/11/2020 14:03:35 03/11/20 20 Fall Risk Screening Tool completed Loly Wilson MD [address], [place], [address], [facility] 03/11/2020 14:02:49 08/22/19 17 Colonoscopy completed Janneth Godfrey [facility] 09/04/2018 17:49:38 08/22/19 16 Colonoscopy completed Laura Fabian MD [address] [address], [place], [address], [facility] 09/06/2020 12:31:38 08/22/18 78 Tonsillectomy completed PEARL Rosenthal [facility] 11/18/2017 18:24:43 Imaging Results None recorded. Procedure Notes None recorded. Medical Equipment None Reported. Allergies Allergen ID Allergen Name Allergen Category Reaction Reaction Severity Criticality Documentation Date Start Date Code Code System Note Provider Name and Address Organization Details Recorded Time 136361 prasteron e medicatio n Not available Not available Not available 10/20/2017 3143 RxNorm Not Available [facility] [employer] 8 10:46:58 [id number] Reglan medicatio n Not available Not available Not available 10/20/2017 9230 RxNorm Not Available [facility] [employer] 8 10:46:58 [id number] erythromy ajit medicatio n Not available Not available Not available 10/20/2017 4053 RxNorm Not Available [facility] API Imports 8 10:46:58 893770 Non-stero idal anti-infl ammatory agent (product) medicatio n Not available Not available Not available 09/03/2020 67734 005 SNOMED Dayana Shant [facility] 19:11:44 Medications Name Sig Start Date Stop Date Status Note LastModified by Organization Details LastModified Time levothyroxi ne 137 mcg tablet TAKE 1 TABLET BY MOUTH EVERY DAY 10/14 completed Not Available Not Available Not Available atorvastati n 80 mg tablet TAKE 1 TABLET BY MOUTH DAILY at 2021 active Not Available Not Available Not [...] Available Not Available Not Available Afluria Quad 4301-6837 (PF) 60 mcg (15 mcg x 4)/0.5 [...] Updated DateTime 1 182.88 cm 24.2 kg/m2 11398.5 4 g 99.6 [degF] 69 /min 99 % 99 % 92 mm[Hg] 62 mm[Hg] Dayana Bran [facility] 1 18:51:21 Date Recorded Body height Body mass index (BMI) Body weight Body temperature Heart rate Oxygen saturation Oxygen saturation in Arterial blood by Pulse oximetry Systolic blood pressure Diastolic blood pressure Provider Name and Address Organization Details Last Updated DateTime 1 182.88 cm 23.8 kg/m2 72507.7 6 g 97.5 [degF] 75 /min 98 % 98 % 110 mm[Hg] 72 mm[Hg] Janneth Llamas [facility] 1 17:03:21 Date Recorded Body height Body mass index (BMI) Body weight Body temperature Heart rate Oxygen saturation Oxygen saturation in Arterial blood by Pulse oximetry Systolic blood pressure Diastolic blood pressure Provider Name and Address Organization Details Last Updated DateTime 1 182.88 cm 24.6 kg/m2 82750.6 2 g 97.8 [degF] 87 /min 97 % 97 % 110 mm[Hg] 60 mm[Hg] Shahrzad Adrian [facility] 1 13:34:51 Date Recorded Body height Body mass index (BMI) Body weight Body temperature Heart rate Oxygen saturation Oxygen saturation in Arterial blood by Pulse oximetry Systolic blood pressure Diastolic blood pressure Provider Name and Address Organization Details Last Updated DateTime 9 182.88 cm 23.4 kg/m2 83452.9 9 g 98.3 [degF] 64 /min 99 % 99 % 110 mm[Hg] 68 mm[Hg] Janneth Evangelistaanna reggie [facility] 9 17:03:21 Date Recorded Body height Body mass index (BMI) Body weight Body temperature Heart rate Oxygen saturation Oxygen saturation in Arterial blood by Pulse oximetry Systolic blood pressure Diastolic blood pressure Provider Name and Address Organization Details Last Updated DateTime 0 182.88 cm 23.9 kg/m2 96969.9 6 g 97.5 [degF] 72 /min 97 % 97 % 112 mm[Hg] 72 mm[Hg] Janneth paredes [facility] 0 13:35:14 Social History Question Answer Notes LastModified by Organizat ion Details LastModified Time Tobacco Smoking Status Never Smoker PEARL Rosenthal, [facility] 11/18/2017 18:15:33 Do You Have An Advance Directive? Yes [email or web address] Information not available 11/18/2017 What Is Your Level Of Caffeine Consumption? Occasional [email or web address] Information not available 11/18/2017 How Much Tobacco Do You Chew? None [email or web address] Information not available 02/01/2019 What Type Of Diet Are You Following? DIABETIC [email or web address] Information not available 11/18/2017 Which Illicit Or Recreational Drugs Have You Used? None Information not available 09/04/2018 Education Post Graduate [email or web address] Informati on not available 11/18/2017 Are There Any Guns Present In Your Home? No [email or web address] Information not available 11/18/2017 Live Alone Or [...] No Information not available 03/11/2020 Marital Status [email or web address] Informat ion not available 11/18/2017 What Was The Date Of Your Most Recent Tobacco Screening? 01/23/2021 [email or web address] Information not available 01/23/2021 How Many Children Do You Have? 0 Information not available 09/03/2020 Are You Sexually Active? No [email or web address] Information not available 11/18/2017 Smoke Alarm In Home Yes [email or web address] Information not available 11/18/2017 How Much Tobacco Do You Smoke? No [email or web address] Information not available 02/01/2019 General Stress Level High [email or web address] Information not available 11/18/2017 Do You Use Sunscreen Routinely? Yes [email or web address] Information not available 11/18/2017 Has Tobacco Cessation Counseling Been Provided? Yes Information not available 03/11/2020 On What Date Was Tobacco Cessation Counseling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
== END 2025-01-18 10:41 | disposition home or self-care (01) ==
LOC: HO.PMC 10:00
PROVIDERS: PCP Family Medicine; Visit Provider Internal Medicine
DX: G90.50 Complex regional pain syndrome I, unspecified (principal)
CPT/HCPCS: 99213

== ENCOUNTER → 2025-01-18 09:59 | Outpatient (BNVA) | payer MEDICARE, SELFPAY | PROVIDERS: PCP Family Medicine; Visit Provider Internal Medicine | DX: G90.50 Complex regional pain syndrome I, unspecified (principal) | CPT/HCPCS: 99212 ==

== ENCOUNTER 2025-04-08 09:29 | Outpatient (AMB) | payer MEDICARE, SELFPAY ==
--- OUTSIDE RECORDS SUMMARY | 2012-12-15 05:00 | XMS_ITS | Continuity of Care Document ---
Author Organization [facility] Address [address] [address] Phone Care Team Providers Care Fleet Service Manager Name Role Phone [facility] Unavailable Humera vailable Procedures Procedure Date REVISION OF UPPER EYELID REVISION OF UPPER EYELID REMOVE EYELID LESION Advance Directives Directive Yes / No Effective Date File Name No Information Encounters Encounter Description Practice Location Reason(s) For Visit Diagnoses Date Provider Providers Copied on Encounter [facility], [address] [place] [address], [id number], tel:[phone] [facility] No Information [facility]. [address] [place] [address], [id number]. tel:[phone] Referring Provider: Alexandrea bethea MD, [address] [place] [address], [id number]. tel:[phone] Family History Family Member Type Diagnosis Age At Onset No Information Payers Payer name Insurance type Covered constitution party ID Authoriza tion(s) [facility] CI [id number] Social History Type Description Quantity Date Captured Comments Sex Female Smoking Status No Information Chief Complaint And Reason For Visit No Information Reason For Referral Reason For Referral No Information History Of Present Illness Encounter Date Complaint History Of Prese nt Illness No Information Functional Status Date Functional Assessmen t No Information Instructions Date Instruction Additional Infor mation No Information Assessments Type Assessment Date No Information Patient Care Teams Name Effective Dates (start - stop) Status Members No Information
[2025-04-08 09:30] VITALS: BP 108/62; PULSE 62; O2SAT 97; BMI 22.2
--- NOTE | 2025-04-08 09:30 | A.OFFVIS_ITS ---
Vital Signs 04/08/25 09:30 Height 6 ft Weight 164 lb BMI 22.2 BP 108/62 Blood Pressure Location Lt brachial Position Sitting Pulse 62 Pulse Source Pulse Oximeter Pulse Oximetry (%) 97 Oxygen Delivery Method Room Air Intake Visit Reasons: 6mnth follow up Intake Note: Patient presents 6 month follow up for Parkinson's. Allergies dihydroergotamine Allergy (Severe, Verified 04/08/25 09:33) Vomiting erythromycin base Adverse Reaction (Intermediate, Verified 04/08/25 09:33) n/v NSAIDS (Non-Steroidal Anti-Inflamma Adverse Reaction (Intermediate, Verified 04/08/25 09:33) Stomach Upset reglan Adverse Reaction (Severe, Uncoded 04/08/25 09:33) Unknown HPI Comments Details: 64-yr-old female presents for f/u Parkinson's, TD, and migraine. Pt reports unfortnately the spinal cord pain management stimulator placed on May 23, 2024, has ultimately not been effective. She is doing a neuroplasticity cognitive behavioral pain management therapy w/ Camila Skinner, PhD. She is facilitating a chronic illness group at the local [facility], meets every Tu for 1.5 hrs. Now has a new psych med provider. She continues to have RUE rest tremor w/ some kinetic tremor when holding something, rubbing her right thumb along her 3rd finger, and fingers are posturing some. May scrunch her face at times. Has started sewing lessons- may see her shaking when she is cutting or threading a needle, but the instructor has offered her some adaptive equipment which does help. She has met someone who has Parkinson's- and they talk very frequently. 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 Some orthostatic lightheadedness- tries to stand up slowly.. She is walking with her dog regularly. Doing pool exercises and some swimming. Denies dysphagia, but may feel her throat is tight. Reports generally stiff- tries to stretch. Voiding slowly in the am and evening. Had some constipation but better sine starting a probiotic. States memory is ok. Denies hallucinations, however has vivid dreams with hypnopompic hallucinations where the dream persists upon awakening and can carry the negative emotion with her. Her mood has been stable, but this weekend was a bit worse. Sees her therapist regularly. Has post-traumatic nightmares- on Prazosin 4mg qhs. She has also started an OTC melatonin nature[employer] bounty sleep-3- and feels this is helping her sleep better. She has been having 3 migraine attacks per week, either wakes up with a migraine or has an attack later in the day. Amitriptyline is still helpful. Zomig and zofran, are still effective. [facility] Medical History Bipolar disorder Anxiety HLD (hyperlipidemia) Hypothyroidism Depression Memory difficulties Kidney stones GERD (gastroesophageal reflux disease) Surgical History History of back surgery H/O foot surgery Hx of tonsillectomy History of ankle surgery Family History Father Cancer of adrenal gland High blood pressure High cholesterol Migraines Mother High cholesterol High blood pressure Diabetes Pulmonary fibrosis Social History Household Members Other:: lives alone Are you a primary emergency care tech to a significant other at home: No Do you presently have visiting nurse or other home services: No Unable to assess alcohol history related to: Unknown Alcohol intake: never Patient Tobacco Use Status: Never used Tobacco Substance Use Type: Marijuana Physical Exam Vital Signs: Last Vital Signs Pulse 62 04/08/25 09:30 BP 108/62 04/08/25 09:30 Pulse Ox 97 04/08/25 09:30 Oxygen Delivery Method Room Air 04/08/25 09:30 BMI result Body Mass Index 22.2 Const General: cooperative and no acute distress Resp Effort & Inspection: normal respiratory effort and able to speak in complete sentences GI Palpation (GI): Tenderness to palpation present (GI) in the epigastrum and periumbilically (more right sided) Auscultation: Hypoactive bowel sounds present (in all quadrants) Neuro Other: Alert and oriented x3 Involuntary oral-buccal and nose movements. Very rare- involuntary L > R hand flexion/extension- decreased Toes- tapping toes. BUE postural tremor w/ mild hand posturing in flexion. FFM- slightly decreased Foot taps- deferred today Stands easily, mild antalgic gait with right high step, overall steady gait. Pleasant affect Assessment & Plan Assessment & Plan (1) Parkinson's disease without dyskinesia: Code(s): G20.A1 - Parkinson's disease without dyskinesia, without mention of fluctuations Category: Medical Qualifiers: Fluctuating manifestations: without fluctuating manifestations Qualified Code(s): G20.A1 - Parkinson's disease without dyskinesia, without mention of fluctuations (2) Tardive dyskinesia: Comment: Not related to levodopa use. Previous history of Depakote use. Chronic lamotrigine use. Denies history of antipsychotic tx. Code(s): G24.01 - Drug induced subacute dyskinesia Category: Medical (3) Migraine without aura: Code(s): G43.009 - Migraine without aura, not intractable, without status migrainosus Category: Medical Qualifiers: Status migrainosus presence: without status migrainosus Intractability: not intractable Qualified Code(s): G43.009 - Migraine without aura, not intractable, without status migrainosus (4) Constipation: Comment: Improved Code(s): K59.00 - Constipation, unspecified Category: Medical Qualifiers: Constipation type: unspecified constipation type Qualified Code(s): K59.00 - Constipation, unspecified Plan Patient may continue to hold carbidopa levodopa, per patient preference, however reviewed that in Parkinson's the need for increased dopaminergic therapy over time is related to disease progression rather than development of medication tolerance. Interval labs, including CBC, CMP, lamotrigine level, TSH, B12 folate and vitamin-D- were overall within normal limits Follow-up with pain management as scheduled. Concur with continuing neural reprocessing cognitive therapy to augment her pain management therapy. * An online option to consider is [email or web address] Continue to engage in physical activity, such as water-based activities, as tolerated. Continue her singing and sewing lessons. Information previously shared on the [employer] site, which is good resource to learn more about adaptive equipment for tremor. Consider referral to urology if urinary s/s persists. Future considerations: Trialing a long-acting CD-LD formulation, such as CD-LD ER, Rytary. For sleep with vivid dreams, PTSD, hypnopompic?hallucinations: Sleep patient education resources shared with patient, such as the sleep unplugged podcast. Continue prazosin and melatonin. Patient may benefit from reducing and/or stopping zolpidem, as this may trigger vivid dreams and hypnopompic?hallucinations. Patient may benefit from trialing a REM suppressing agent, such as sertraline. Patient advised to discuss above with her current psychiatric prescriber. For acute migraine treatment: Continue Zomig 5 mg at onset of migraine, may repeat x1. Max 10 mg per day. Continue ondansetron 4 mg q.4 hours p.r.n. N/C. Previous acute medication use: Sumatriptan po/inj- stopped working. Took 3 doses of Ubrelvy- 100mg- ineffective.. For headache prevention medication: Continue Amitriptyline 50mg qhs- may help CRPS s/s as well. Previous preventative medication use: Had been on Botox for approx 5 yrs, but this stopped working. Amitriptyline, Topiramte, Propranolol, Depakote- stopped working. Emgality- was effective (changed only d/t insurance). Aimovig 140mg sc q month- previously helpful, patient stopped when her migraine burden decreased. Follow-up in clinic in 6 months or sooner prn. Medications: Refilled donepezil 10 mg PO DAILY 90 tabs 1RF 90 days amitriptyline 50 mg PO BEDTIME 30 tabs 6RF 30 days zolmitriptan (Zomig) do not exceed 2 doses per 24 hrs 5 mg PO Q2-4H PRN 12 tabs 6RF migraine headache 30 days ondansetron HCl 4 mg PO Q4H PRN 30 tabs 6RF nausea and vomiting 30 days Coding Level of Care Code Est Pt Level 4 (18945) Diagnoses Parkinson's disease without dyskinesia or fluctuating manifestations G20.A1 Fluctuating manifestations: without fluctuating manifestations Tardive dyskinesia G24.01 Migraine without aura and without status migrainosus, not intractable G43.009 Status migrainosus presence: without status migrainosus Intractability: not intractable Constipation, unspecified constipation type K59.00 Constipation type: unspecified constipation type
--- OUTSIDE RECORDS SUMMARY | 2025-04-08 10:02 | XMS_ITS | Clinical Summary ---
Author Organization [facility] Health Address [address] [address] [place] [id number] Care Team Providers Care Patient Care Nursing Assistant Name Role Phone Unavailable Primary Care Provider [...] - ESTABLISHED PATIENT Routine 09/30/2021 10:15 AM [facility] PERIO MAINTENANCE Routine 09/30/2021 10: 00 AM [facility] PANORAMIC RADIOGRAPHIC IMAGE Routine 06/01/2019 12:00 AM [facility] LL PERIODONTAL SCALING AND ROOT PLANING - ONE TO THREE TEETH PER QUADRANT Routine 06/01/2019 12:00 AM [facility] INTRAORAL - COMPREHENSIVE SERIES OF RADIOGRAPHIC IMAGES Routine 06/01/2019 12:00 AM [facility] from Last 3 Months or Most Recently Relevant to Health Maintenance
--- OUTSIDE RECORDS SUMMARY | 2025-04-08 10:02 | XMS_ITS | Clinical Summary ---
Author Organization [facility] ity Address [address] [place] [address] Care Team Providers Care Java Software Developer Name Role Phone Unavailable Primary Care Provider [...] Vaccines (1 of 2) 2008 COVID-19 Vaccine (1 - 2023-2 5 season) 2024 Depression Screening 08/22/2024 Influenza Vaccine (#1) 2025 RSV Immunization Adult Patie nts (1 [...]
== END 2025-04-08 10:49 | disposition home or self-care (01) ==
LOC: HO.HSMS 09:30
PROVIDERS: PCP Family Medicine; Visit Provider Nurse Practitioner Family
DX: G20.A1 Parkinson's disease without dyskinesia, without mention of fluctuations (principal); G24.01 Drug induced subacute dyskinesia; G43.009 Migraine without aura, not intractable, without status migrainosus; K59.00 Constipation, unspecified
CPT/HCPCS: 99214

== ENCOUNTER → 2025-04-08 09:29 | Outpatient (BNVA) | payer MEDICARE, SELFPAY | PROVIDERS: PCP Family Medicine; Visit Provider Nurse Practitioner Family | DX: G20.A1 Parkinson's disease without dyskinesia, without mention of fluctuations (principal); G24.01 Drug induced subacute dyskinesia; G43.009 Migraine without aura, not intractable, without status migrainosus; K59.00 Constipation, unspecified | CPT/HCPCS: 99212 ==